=== PATIENT | female | born 1960 | race Caucasian/White ===

== ENCOUNTER → 2017-12-30 15:40 | Outpatient (CLI) | payer MEDICAID, SELFPAY ==
--- NOTE | 2017-12-30 | IMM_PTH ---
PATIENT: ALYSSIA HAYDEN LOC: [facility] U#:[id number] AGE/SX: 65/F ROOM: RE12/30/[address]: Dr. Sonia Sprague MD : 1960 BED: DIS: SPEC #: [id number] RECD: 01/01/18 13:58 STATUS: KEEGAN REQ #: [id number] JULIETH: 12/30/17 00:[address]: Sonia Sprague DEPT: IMMUNOHISTOCHEMISTRY RECD BY: Genoveva Stanford Tissues: Right breast, NOS Procedures: CK5-6 (add) CK8 (add) E-CAD (add) HER2 AMY (add) KI-67 (add) P53 (add) NE (add) ER (initial) PHYSICIAN & INSTITUTION [place] [id number] SPECIMEN INFORMATION: Tissue Source: Right breast, biopsy Clinical Info: Abnormal mammogram Specimen Number: [id number] CPT code: 25735, 27867 x4, 49977 x3 METHODOLOGY: Deparaffinized sections of prefer/formalin-fixed tissue or PAP/DQ stained slides are incubated with monoclonal/polyclonal antibodies/oligonucleotide probes. Localization is made via biotin free immunoperoxidase method. Appropriate controls are performed and reacted as expected. Results on target cell population are indicated in the following table: RESULTS: ANTIBODY / CLONE RESULT E-Cad (ECH-6) positive CK8 (75ivrzQ65) positive CK5-6 (D5 & 1684) negative Ki-67 (30-9) positive, low P53 (DO-7) positive, a few cells MORPHOMETRIC ANALYSIS ER (clone 6F11) >95%, moderate NE (clone 16/1E2) variable 0 to 20%, weak Her-2Neu (clone CB11) 0 The prognostic test for HER2 is performed on formalin-fixed paraffin embedded tissue. A 3+ (positive) staining pattern is defined as intense, homogeneous, complete, circumferential membranous staining in >10% of contiguous tumor cells. A similar weak (2+) staining pattern is interpreted as equivocal. MIKE follow-up testing is recommended for all equivocal cases. Positivity/negativity for ER/NE is reported if > or < 1% of the tumor cells are immuno- reactive, respectively. The ASCO/CAP criteria is used for scoring. Reference: Journal of Clinical Oncology, 2013; 31:8582-3642 & 2010; 16:2953-9506. Duration of fixation: __ Hrs; Sample Adequate: Yes. These assays have not been validated on decalcified tissues. Results should be interpreted with caution given the likelihood of false negativity on decalcified specimens. These tests were developed and their performance characteristics determined by [facility]. They may not have been cleared or approved by the U.S. Food and Drug Administration. The FDA has determined that such clearance or approval is not necessary. INTERPRETATION: Right breast, ultrasound-guided mammotome biopsy: Invasive ductal carcinoma, nuclear grade 2. Positive for estrogen receptors (favorable prognostic indicator). Positive for progesterone receptors (favorable prognostic indicator). Negative for overexpression of [id number]. SJ:raul 01/02/18
--- NOTE | 2017-12-30 | BRBX_PTH ---
PATIENT: ALYSSIA HAYDEN LOC: [facility] U#:[id number] AGE/SX: 65/F ROOM: RE12/30/[address]: Dr. Sonia Sprague MD : 1960 BED: DIS: SPEC #: [id number] RECD: 12/30/17 15:13 STATUS: KEEGAN ERVIN #: [id number] JULIETH: 12/30/17 00:[address]: Sonia Sprague DEPT: SURGICAL PATHOLOGY RECD BY: Harpreet Arellano Tissues: Right breast, NOS Procedures: Surgery Specimen Level IV HEADER OPERATION: Ultrasound-guided mammotome right breast biopsy PRE-OP DIAGNOSIS: Abnormal mammogram TISSUE SUBMITTED: Right breast biopsy ISCHEMIC TIME: 1 minute MICROSCOPIC DIAGNOSIS Right breast, ultrasound-guided mammotome core biopsy: Invasive ductal carcinoma, nuclear 2 (1 cm in greatest length). See comment. BEATRIZ:raul 01/01/18 COMMENT Immunohistochemistry ([id number]) supports the above diagnosis. ER/NM/Upr2wyo studies are being performed on sections of tumor and the results from this study will be reported separately ([id number]). MICROSCOPIC DESCRIPTION Slides are reviewed. GROSS DESCRIPTION Received is one container labeled with the patient's name and not further designated. The specimen consists of multiple elongated fragments of mendoza soft tissue that in aggregate measure 2 x 1 x 0.1 cm. The entire specimen is submitted in one cassette. / SJ:rg 12/31/17 TC:0 CPT: 10760
== END ==
PROVIDERS: Visit Provider Surgery
DX: C50.911 Malignant neoplasm of unspecified site of right female breast (principal)
CPT/HCPCS: 88305; 88341; 88342

== ENCOUNTER 2018-02-14 14:23 | Observation (INO) | payer MEDICAID, SELFPAY ==
[2018-02-12 13:17] LABS: Hematocrit 40.1 % (37-47); Mean Corp Hgb Conc 34.9 g/gl (32-36); Mean Corpuscular Hgb 29.5 pg (27.0-32.0); Mean Corpuscular Volume 84.6 fL (81-99); Mean Platelet Vol. 10.2 fl (6.2-12.0); Platelet Count 212 K/mm3 (150-450); RBC Distribution Width CV 13.3 % (11.6-14.6); RBC Distribution Width SD 40.6 fl (35.1-43.9); Red Blood Count 4.74 M/mm3 (4.2-5.4); White Blood Count 10.8 K/mm3 (4.4-11.0)
[2018-02-12 13:24] LABS: Hemoglobin A1c 9.8 % (4.2-6.3)
[2018-02-12 13:27] LABS: Scan Indicated on CBC? Y/N NO
[2018-02-12 13:38] LABS: Anion Gap 12 (5-15); BUN 22 mg/dL (7-18); BUN/Creat Ratio 27.8 RATIO (10-20); Calcium,Total 9.2 mg/dL (8.5-10.1); Chloride 104 mmol/L (98-107); Creatinine, Serum 0.79 mg/dL (0.55-1.02); EST Glomerular Filtration Rate 80 mL/min (>60); Est Glom Filt Rate - Afr Amer 97 mL/min (>60); Glucose 127 mg/dL (74-106); Potassium 4.2 mmol/L (3.5-5.1); Sodium Level 141 mmol/L (136-145)
[2018-02-14] VITALS (9 sets, daily range): BP systolic 94–131; BP diastolic 49–71; PULSE 63–82; RESP 16–18; TEMP 36–36.8; O2SAT 1–100; BMI 37.7
--- NOTE | 2018-02-14 | AXNB_PTH ---
PATIENT: ALYSSIA HAYDEN LOC: [facility] U#:[id number] AGE/SX: 57/F ROOM: [facility] [place] RE02/14/[address]: Dr. Sonia Sprague MD : 1960 BED: 1 DIS: 02/15/2018 SPEC #: [id number] RECD: 02/14/18 13:39 STATUS: KEEGAN REQ #: [id number] JULIETH: 02/14/18 00:[address]: Sonia Sprague DEPT: SURGICAL PATHOLOGY RECD BY: Maryse Mari ENTERED: 02/17/18 09:07 SP TYPE: AX NODE BX OTHR DR: Dr. Herminio Ritchie MD Tissues: A - Axillary lymph node, NOS B - Right breast, NOS C - Left breast, NOS Procedures: Surgery Specimen Level V Surgery Specimen Level HEADER OPERATION: Mastectomy, modified, radical PRE-OP DIAGNOSIS: Newly diagnosed right breast cancer TISSUE SUBMITTED: A ? Right axillary contents to identify clip, then to pathology for permanent at 1237, B ? Right breast, suture at tail of Durand, C ? Left breast MICROSCOPIC DIAGNOSIS A. Right axillary contents: Five out of seven lymph nodes positive for metastatic carcinoma. See comment. B. Right breast, modified radical mastectomy: Invasive ductal carcinoma. Ductal carcinoma in situ. C. Left breast, simple mastectomy: Fibrocystic changes. INVASIVE BREAST CANCER SUMMARY: (Including specimen A & B) Specimen ? total breast (including nipple and skin). Procedure ? total mastectomy (including nipple and skin). Lymph node sampling ? axillary dissection Specimen integrity ? single intact specimen Specimen laterality - right Tumor site ? central Tumor size ? 1.8 x 1.8 x 1.5 cm Tumor focality ? single focus of invasive carcinoma Macroscopic and Microscopic extent of tumor: Skin ? invasive carcinoma does not invade into the dermis or epidermis. Nipple ? ductal carcinoma in situ does not involve the nipple epidermis. Skeletal muscle ? no skeletal muscle is present. Ductal carcinoma in situ (DCIS) - present Extensive intraductal component (EIC) ? not seen. Estimated size (extent) of DCIS - Ductal carcinoma in situ comprises <1% of the total tumor volume. Number of blocks with DCIS - 1 Number of blocks examined - 11 Architectural patterns - comedo Nuclear grade ? grade 2 (intermediate) Necrosis ? present, central (expansive ?comedo? necrosis) Lobular carcinoma in situ (LCIS) ? not identified Histologic type of invasive carcinoma ? invasive ductal carcinoma (no special type) Histologic Grade ([place] grade): Glandular/tubular differentiation - score 3 Nuclear pleomorphism - score 3 Mitotic count ? score 2 Overall grade - 3 (score of 8) Margins - Margins uninvolved by invasive carcinoma and ductal carcinoma in situ. Ductal carcinoma in situ and invasive carcinoma is 6 cm away from the closest posterior margin and 1.5 cm away from the overlying skin ellipses. Treatment effect: Response to presurgical (neoadjuvant) therapy - no known presurgical therapy. Lymph-Vascular invasion ? not identified Dermal lymph-vascular invasion - not identified Lymph nodes: Number of sentinel lymph nodes examined - 0 Total number of lymph nodes examined (sentinel and nonsentinel) - 7 Number of lymph nodes with macrometastases - 5 Number of lymph nodes with micrometastases and isolated tumor cells - 0 Extranodal extension ? present, focal Distant metastasis ? not applicable Additional pathologic findings ? fibrocystic changes Ancillary studies - previously performed on section of tumor ([id number] / [id number]). ER ? positive (>95%, moderate) IL ? positive (variable 0 to 20%, weak) Her2 pretty ? negative (0) Microcalcifications ? present in non-neoplastic tissue Clinical history - Please make reference to previous specimen ([id number]) right breast, ultrasound-guided mammotome core biopsy with diagnosis of invasive ductal carcinoma. PATHOLOGIC STAGE: pT1c pN2a Mx The above summary is in compliance with [employer] (CAP) Cancer Protocols Checklist and [place] Joint Committee on Cancer (AJCC), Staging Manual, 8th Ed. SJ:rg 02/20/18 COMMENT A. The largest focus of metastatic carcinoma measures 1.2 cm in greatest dimension. Focal extranodal extension is present. The largest lymph node shows focal changes consistent with previous biopsy. No obvious clip is identified in the largest lymph node. B. No obvious lymph nodes are identified in the area identified with a suture. This case has been reviewed in consultation with Dr. Heredia who concurs with the above diagnosis. MICROSCOPIC DESCRIPTION Slides are reviewed. GROSS DESCRIPTION A - Received in fixative is one container labeled with the patient's name and designated axillary contents to identify clip. The specimen consists of a piece of yellow adipose tissue measuring 9 x 7.5 x 4 cm. A detached piece of adipose tissue with a lymph node is also present measuring 3 x 2 x 1 cm and the lymph node measures 1.5 cm in greatest dimension. Sections of large piece reveal multiple lymph nodes. The largest lymph node measures 3 cm in greatest dimension. The largest lymph node shows a focal area of hemorrhage; however, no obvious clip is identified. Some of the lymph node grossly appears to be involved by the tumor. Estimator And Drafter sections are submitted in eight cassettes as follows: 1 ? one bisected lymph node present in the detached piece of tissue, 2 ? multiple lymph node, 3 ? one bisected lymph node, 4 - one bisected lymph node, 5 - one bisected lymph node, 6 - one serially sectioned lymph node, 7 & 8 ? largest lymph node. Estimator And Drafter sections will be submitted after additional fixation. Smaller lymph nodes are submitted in entirety. / SJ:raul 02/17/18 B - Received in fixative is one container labeled with the patient's name and designated right breast, suture at tail of Durand. The specimen consists of a mastectomy specimen consisting of breast tissue with overlying skin ellipse and portion of axillary tail. The breast tissue measures 26 x 23 x 5.5 cm. The skin ellipse measures 23 x 10 cm. The nipple measures 1 cm in greatest dimension. No skin lesion is identified. The specimen is inked as follows: superior ? blue, inferior ? green, medial ? red, lateral ? orange, posterior ? black. A small axillary tail is present and measures 3 x 2.5 x 2 cm. Also present in the container is an elongated piece of mendoza-white skin measuring 20 x 0.7 cm and up to 1 cm in thickness. Also present in the container is a second additional piece of skin measuring 2 x 0.5 cm and up to 2 cm in thickness. More dictation will follow after additional fixation. / SJ:raul 02/14/18 Serial sections reveal a mendoza, indurated mass in central portion measuring 1.8 x 1.8 x 1.5 cm. This mass is 6 cm away from the posterior margin and 1.5 cm away from the overlying skin ellipse. Sections of the rest of the specimen reveal mendoza-yellow adipose cut surfaces mixed with mendoza-white fibrous area. Sections of the axially tail tissue adjacent to the suture do not reveal any obvious lymph node. Estimator And Drafter sections are submitted in 11 cassettes (#1 not used) as follows: 2 ? nipple, entirely submitted, 3 ? perpendicular superior, inferior and lateral margin, 4 ? perpendicular medial and posterior margin and skin, 5-8 ? tumor with surrounding adipose tissue, 9-12 ? sales representative [employer] service sections from the other areas. Sections will be submitted after overnight fixation. / SJ:raul 02/17/18 C - Received in fixative is one container labeled with the patient's name and designated left breast. The specimen consists of a mastectomy specimen consisting of breast tissue with overlying skin measuring 27 x 23 x 5.5 cm. The overlying skin measures 23 x 10.5 cm. The nipple measures 1 cm in greatest dimension. The specimen is inked as follows: superior ? blue, inferior ? green, medial ? red, lateral ? orange, posterior ? black. Sections reveal yellow adipose cut surfaces mixed with scant fibrous area without any mass lesion. More dictation will follow after overnight fixation. / SJ:raul 02/14/18 Estimator And Drafter sections are submitted in ten cassettes as follows: 1 ? nipple, entirely submitted, 24 ?lateral portion of breast tissue, 4-6 ? central portion of breast tissue, 7-10 - medial portion of breast tissue. Sections will be submitted after overnight fixation. / SJ:raul 02/17/18 TC:0 CPT: 76672 x2, 54131
[2018-02-14 10:16] LABS: Bedside Glucose 152 mg/dL (70-110)
[2018-02-14] MEDS: Cefazolin 2 GM in 0.9% Normal Saline 100 ML IV (11:30)
[2018-02-14] MEDS: Bupiv/Epi 0.5% Mpf 30 ML Vial ×2 (12:30)
--- NOTE | 2018-02-14 14:15 | PCM.IMDPSTOP ---
Immediate Post-Op Note Date of Procedure: 02/14/18 Primary Surgeon/Physician: Sonia Sprague mems process engineer: NOT,DEFINED Pre-Operative Diagnosis: right breast cancer Post-Operative Diagnosis: same Surgery/Procedure Performed:: right modified radical mastectomy and left simple prophylatic mastectomy (by Dr. Solares) Description of Surgical Findings:: palpable adenopathy in the right axilla, specimen mammogram of the right axilla with marker clip in place, patient with bilateral inferior to breast areas with dermatitis Estimated Blood Loss: 100 ml Specimen's removed: right breast with suture at tail of Durand, right axillary contents, left breast Drains: passive MARGARET drains x 3- mastectomy bed right and left, right axilla Type of Anesthesia:: General ASA Class: ASA3 Severe Disease - Admit VTE Documentation VTE Present on Admission: Yes VTE Mechan Device Prophylaxis: SCD's
--- NOTE | 2018-02-14 14:19 | PCM.OPRPT ---
Report of Operation Date of Procedure: 02/14/18 Pre-Operative Diagnosis: right breast cancer with known lymph node metastasis Post-Operative Diagnosis: same Surgery/Procedure Performed:: right modified radical mastectomy and left simple prophylatic mastectomy (by Dr. Solares) Description of Surgical Findings:: palpable adenopathy in the right axilla, specimen mammogram of the right axilla with marker clip in place, patient with bilateral inferior to breast areas with dermatitis pediatric acute care unit nurse: NOT,DEFINED Type of Anesthesia:: General Anesthesiologist: Delgado Cunningham Specimen's removed: right breast with suture at tail of Durand, right axillary contents, left breast Drains: passive MARGARET drains x 3- mastectomy bed right and left, right axilla Estimated Blood Loss (mL): 100 ml Fluids Replaced: 900 ml RL Description of Procedure: After informed consent was given the patient was brought to the OR, Appropriate time out protocol was followed. She was then placed in the supine position on the operating room table. She was then placed under general anesthesia. The patient's chest and neck area were then prepped with a sterile surgical skin preparation and appropriate sterile surgical drapes were placed. A skin incision was marked on the patient's right and left breast to achieve symmetry as much as possible. It was made in an oblique elliptical fashion angled to the axilla. It was made to encompass the periareolar tissues as well as to encompass the original biopsy site. The mass was centrally located, primarily in the upper inner quadrant. I performed the right modified radical mastectomy, Dr. Solares performed the left simple prophylactic mastectomy and he will dictate this operative report separately. The skin incision was made with a 10 blade scalpel and carried through to the subcutaneous tissues using electrocautery. Any hemorrhage was controlled with electrocautery. Dissection was then done to separate the breast tissue from the subcutaneous fat. This was done superiorly, to the level of the clavicle; laterally to the edge of the thoracic cage; medial to the sternal border; and inferiorly to the costal margin. The breast tissue was from the subcutaneous fatty layer using electrocautery. Any larger vessels were individually cauterized with the Bovie or with use of the Harmonic scalpel. The entire breast tissue and the pectoralis fascia were then from the pectoralis muscles starting medially and continuing laterally. The dissection included the interpectoral semaj tissue. Once dissection was achieved to the lateral aspect of the breast, then the inferior portion of the lateral tissue was transected leaving the breast tissue connected only by the superior lateral tissue (tail of Durand) of the breast. Blunt dissection was then conducted into the axillary fossa to palpate out any axillary lymph nodes. The axillary investing fascia was incised to enter the axillary fossa. Dissection continued bluntly to identify the axillary vein. Once this was noted, then dissection continued inferiorly and laterally to identify the thoracodorsal bundle. Blunt dissection was then continued within these boundaries, the tissue being retracted inferiorly and medially. Of note, there were multiple palpable enlarged lymph nodes within this tissue. Dissection was continued with the Harmonic scalpel, with tissue retracted, until the long thoracic vessels and nerves were approached. The semaj tissue was then retracted out of the axilla, anteriorly, to incorporate all palpable lymph nodes. This was from the axilla and then forwarded separately to Radiology for a specimen radiological study of the axillary contents to ensure that the marker clip of the previous lymph node was confrimed to be in the specimen. A specimen xray revealed that the marker clip was present in the specimen, the specimen was then forwarded to pathology for analysis. Hemostasis was carefully checked and any site of active bleeding was controlled with electrocautery. The long thoracic nerve and thoracodorsal nerves were identified and were intact and functioning. The breast tissue was handed off separately to be sent to pathology. A marker suture was placed at the lateral most point - tail of Durand. The entire surgical dissected field was irrigated with sterile water. Hemostasis of the area of dissection was then achieved with electrocoagulation. Henrik was applied liberally to the area. A 10 mm passive drain was placed in the axilla and another was placed along the mastectomy bed and these drains were brought out through separate skin incisions and sutured to the skin using nylon suture. The superior and inferior skin flaps were then approximated together using interrupted vicryl suture along the dermis of the skin edges. The skin incision was then reapproximated with 4-0 monocryl in a running subcuticular fashion. Cavilon and steristrips were then placed to reinforce the skin closure and proper sterile dressings were applied. Compression bandage was applied around the patient's chest. Patient was extubated and brought to Recovery Room in stable condition. - Complications none noted - Admit VTE Documentation VTE Present on Admission: Yes VTE Mechan Device Prophylaxis: SCD's
[2018-02-14 14:21] LABS: Bedside Glucose 167 mg/dL (70-110)
[2018-02-14] MEDS: Ondansetron 4 MG/2 ML Vial IV (15:47)
[2018-02-14] MEDS: 0.9% NaCl Peripheral Flush Adult/Peds IV (16:05)
[2018-02-14] MEDS: Lactated Ringers 1,000 ML 75 ML IV (17:50)
[2018-02-14] MEDS: Insulin Lispro 100 UNIT/ML INSULN.PEN SC ×2 (18:15→22:13)
[2018-02-14 18:36] LABS: Bedside Glucose 222 mg/dL (70-110)
[2018-02-14] MEDS: Cefazolin 1 GM/50 ML BAG IV (20:30)
[2018-02-14] MEDS: Atorvastatin Calcium 20 MG Tablet PO (22:13)
[2018-02-14 22:26] LABS: Bedside Glucose 216 mg/dL (70-110)
[2018-02-15] MEDS: Lactated Ringers 1,000 ML 75 ML IV (01:03)
[2018-02-15 01:38] VITALS: BP 100/46; PULSE 73; RESP 18; TEMP 37.3; O2SAT 96
[2018-02-15] MEDS: Cefazolin 1 GM/50 ML BAG IV (06:06)
[2018-02-15 07:06] LABS: Bedside Glucose 154 mg/dL (70-110)
[2018-02-15 08:19] VITALS: BP 104/50; PULSE 75; RESP 18; TEMP 36.6; O2SAT 93
[2018-02-15] MEDS: FLUoxetine 20 MG Capsule PO (08:32)
[2018-02-15] MEDS: Lisinopril 5 MG Tablet PO (08:32)
[2018-02-15] MEDS: Insulin Lispro 100 UNIT/ML INSULN.PEN 10 UNIT SC ×2 (08:32→11:09)
[2018-02-15] MEDS: Insulin Lispro 100 UNIT/ML INSULN.PEN SC ×2 (08:33→11:09)
[2018-02-15] MEDS: Ibuprofen 600 MG Tablet PO (11:08)
--- NOTE | 2018-02-15 11:09 | PCM.PN.SRG ---
Subjective: Patient feeling well, has ambulated somewhat, complaint of pain of right upper chest area, mood is good Tolerating diet - Physical Exam General: Alert, Oriented x3 Oral: Moist Mucosa Neck: Supple Lungs: Normal air movement Cardiovascular: - - chest - dressing of adequate compression - not too tight, MARGARET outputs are serosanguinous Abdomen: Soft Vital Signs Temp Pulse Resp BP Pulse Ox 97.8 F 75 18 104/50 L 93 02/15/18 08:19 02/15/18 08:19 02/15/18 08:19 02/15/18 08:19 02/15/18 08:19 Oxygen Flow Rate (L/min) 1 Oxygen Delivery Method Room Air Weight: 87.6 kg Body Mass Index (BMI) 37.7 Finger Stick Blood Glucose 167 Intake and Output for Last 24 Hours 02/13/18 02/14/18 02/15/18 23:59 23:59 23:59 Intake Total 1547 / 1547 807 / 807 Output Total 300 / 300 1435 / 1435 Balance 1247 / 1247 -628 / -628 POC Glucose 02/15/18 02/14/18 02/14/18 06:58 22:11 18:03 POC Glucose 154 H 216 H 222 H 02/14/18 14:14 POC Glucose 167 H Medical Necessity - Tobacco Use Smoking Status: Former smoker Tobacco Use: Cigarettes Assessment/Plan Impression: POD #1 s/p bilateral mastectomies with RMRM for right breast cancer Plan: discharge to home Follow up with me next week Patient to be discharged on pain meds and antibiotics
--- NOTE | 2018-02-15 11:12 | PCM.DC.BS ---
Discharge Diet: No Restrictions - maintain diabetic diet to control blood sugars drink plenty of water Discharge Activity: Return to Normal Activity, May not drive while taking narcotic pain medications. Return to work on:: 04/07/18 - or until other notice given Lifting Restrictions: no lifting greater than 10 pounds for each arm Additional Activity Instructions:: Avoid excessive activities of upper extremities above the level of the shoulders, occasional reaching is OK Call your doctor if your incision/area has: Continuous Slow Oozing, Foul Smelling Discharge Call your doctor if you observe: Fever of 101 or Higher Additional Dressing/Incision Instructions:: Leave dressing in place. Empty MARGARET bulbs as shown, empty and reconstitute bulb suction twice a day and more if needed. Sponge bathe only. Have someone else wash hair Allergies/Adverse Reactions: Allergies diphenhydramine [From Benadryl] Adverse Reaction (Verified 02/14/18 10:06) Other JITTERY morphine Adverse Reaction (Verified 02/14/18 10:06) Other LOW BLOOD PRESSURE Medications to take at Discharge Atorvastatin Calcium [Lipitor] 20 mg PO QHS 02/07/18 Cyanocobalamin (Vitamin B-12) [Vitamin B-12] 500 mcg PO DAILY 02/07/18 Dulaglutide [Trulicity] 0.75 mg SQ FR 02/07/18 Ertugliflozin Pidolate [Steglatro] 15 mg PO DAILY 02/07/18 Fluoxetine [Prozac] 20 mg PO DAILY 02/07/18 Insulin Glargine,Hum.rec.anlog [Basaglar Kwikpen U-100] 52 unit SQ QHS 02/07/18 Insulin Lispro [Admelog Solostar] 10 unit SQ TID 02/07/18 Lisinopril [Prinivil] 5 mg PO DAILY 02/07/18 RX: Biotin 1 mg PO DAILY 02/07/18 RX: Ibuprofen 200 mg PO PRN PRN 02/07/18 RX: Metformin HCl 1,000 mg PO BID 02/07/18 RX: Potassium 99 mg PO DAILY 02/07/18 Cephalexin [Keflex] 500 mg PO BID 14 Days #28 cap 02/15/18 Hydrocodone Bitart/Apap 5-325 [[place] 5MG-325MG] 1 tab PO Q6H PRN PRN 5 Days #20 tab 02/15/18 The following prescriptions were given: Hydrocodone Bitart/Apap 5-325 [[place] 5MG-325MG] 1 tab PO Q6H PRN PRN 5 Days #20 tab PRN Reason: Pain Cephalexin [Keflex] 500 mg PO BID 14 Days #28 cap Primary Care Physician: Herminio Ritchie MD [Primary Care Provider] - Please Follow Up With: Sonia Sprague MD - call When: to be seen on Saturday, Feb 19, please call for time, thank you
[2018-02-15 11:25] LABS: Bedside Glucose 234 mg/dL (70-110)
--- NOTE | 2018-02-16 11:28 | PCM.OPRPT ---
Report of Operation Date of Procedure: 02/14/18 Pre-Operative Diagnosis: right breast cancer with known lymph node metastasis Post-Operative Diagnosis: same Surgery/Procedure Performed:: left simple prophylatic mastectomy director of assessment: NOT,DEFINED Type of Anesthesia:: General Anesthesiologist: Delgado Cunningham Specimen's removed: right breast with suture at tail of Dur[place], right axillary contents, left breast Drains: passive MARGARET drains x 3- mastectomy bed right and left, right axilla Estimated Blood Loss (mL): 100 ml Fluids Replaced: 900 ml RL Description of Procedure: The patients surgical site was marked in the holding area and the patient concurred that this was the planned operative site. I performed a left simple mastectomy. While Dr. Sprague performed a right modified radical mastectomy The patient was then brought to the operative suite. Sign was performed verifying patient, site, position, SCIP antibiotic prophylaxis-2 g of Ancef and DVT prophylaxis with SCDs. Following an LMA, the patients left breast, axilla, arm and neck were then prepped and draped in the usual fashion. Timeout was performed verifying patient, site, position. The planned margin of excision for the mastectomy flaps were marked on the skin and incisions were made. Superior and inferior flaps were completed and raised. The breast tissue was taken down to the pectoralis fascia. The inferior portion of breast was then removed from the intercostal musculature and dissection carried superior laterally dividing the superficial tissues leading up to the axillary dissection . The specimen was sent whole . 1 Allen-Mata drains were placed in the medial along the skin flap and secured with 3-0 nylon suture. Skin flaps were approximated interrupted 3-0 Vicryls. Skin was closed with a 4-0 biosyn running subcuticular closure Drain dressings and incisional dressings were placed. All sponge and instrument counts were correct. The patient was extubated and brought to recovery room in stable condition.
== END 2018-02-15 12:50 | disposition home or self-care (01) ==
LOC: MS2 15:01
PROVIDERS: Surgery; Admitting Provider Surgery; Family Provider Family Medicine; PCP Family Medicine; Visit Provider Surgery
PROC: (CPT 19307; principal; 2018-02-14 10:45)
PROC: (CPT 19303; 2018-02-14 10:45)
DX: C50.211 Malignant neoplasm of upper-inner quadrant of right female breast (principal); C77.9 Secondary and unspecified malignant neoplasm of lymph node, unspecified; Z87.891 Personal history of nicotine dependence; E66.9 Obesity, unspecified; Z68.37 Body mass index [BMI] 37.0-37.9, adult; Z71.3 Dietary counseling and surveillance; F32.9 Major depressive disorder, single episode, unspecified; Z79.899 Other long term (current) drug therapy; Z79.4 Long term (current) use of insulin; E11.9 Type 2 diabetes mellitus without complications
CPT/HCPCS: 00404; 19303; 19307; 36415; 76098; 80048; 82962; 83036; 85027; 88305; 88307; 88309; 93005; 96361; 96365; 96366; 96375; 96376; 99218; J7120; A4216; G0378; G0379; J2405

== ENCOUNTER 2018-03-17 09:29 | Day surgery (SDC) | payer MEDICAID, SELFPAY ==
[2018-03-17 09:47] VITALS: BP 116/68; PULSE 78; RESP 16; TEMP 36.2; O2SAT 96; BMI 35.9
--- NOTE | 2018-03-17 10:32 | PCM.DC.POR ---
Discharge Diet: No Restrictions Discharge Activity: Return to Normal Activity, May not drive while taking narcotic pain medications. Lifting Restrictions: no lifting with left arm greater than 10 pounds Call your doctor if your incision/area has: Continuous Slow Oozing, Foul Smelling Discharge Call your doctor if you observe: Fever of 101 or Higher Additional Dressing/Incision Instructions:: Leave dressing in place. May get wet in shower. Do not scrub. Do not soak - no tub baths/swimming Allergies/Adverse Reactions: Allergies diphenhydramine [From Benadryl] Adverse Reaction (Verified 03/10/18 09:59) Other JITTERY morphine Adverse Reaction (Verified 03/10/18 09:59) Other LOW BLOOD PRESSURE Medications to take at Discharge Atorvastatin Calcium [Lipitor] 20 mg PO QHS 02/07/18 Biotin 1 mg PO DAILY 02/07/18 Cyanocobalamin (Vitamin B-12) [Vitamin B-12] 500 mcg PO DAILY 02/07/18 Dulaglutide [Trulicity] 0.75 mg SQ SA 02/07/18 Ertugliflozin Pidolate [Steglatro] 15 mg PO DAILY 02/07/18 Fluoxetine [Prozac] 20 mg PO DAILY 02/07/18 Ibuprofen 200 mg PO PRN PRN 02/07/18 Insulin Glargine,Hum.rec.anlog [Basaglar Kwikpen U-100] 52 unit SQ QHS 02/07/18 Insulin Lispro [Admelog Solostar] 10 unit SQ TID 02/07/18 Lisinopril [Prinivil] 5 mg PO DAILY 02/07/18 Metformin HCl 1,000 mg PO BID 02/07/18 Potassium 99 mg PO DAILY 02/07/18 Hydrocodone Bitart/Apap 5-325 [[place] 5MG-325MG] 1 tab PO Q6H PRN PRN 3 Days #6 tab 03/17/18 The following prescriptions were given: Hydrocodone Bitart/Apap 5-325 [[place] 5MG-325MG] 1 tab PO Q6H PRN PRN 3 Days #6 tab PRN Reason: Pain Primary Care Physician: Herminio Ritchie MD [Primary Care Provider] - Test Results: Test results from this visit will be discussed in further detail at your follow-up appointment, if applicable. Please Follow Up With: Sonia Sprague MD - call When: to be seen in 7-10 days, please call for a date and time, thank you
--- NOTE | 2018-03-17 10:35 | DCINST_ITS ---
Discharge Diet: No Restrictions Discharge Activity: Return to Normal Activity, May not drive while taking narcotic pain medications. Lifting Restrictions: no lifting with left arm greater than 10 pounds Call your doctor if your incision/area has: Continuous Slow Oozing, Foul Smelling Discharge Call your doctor if you observe: Fever of 101 or Higher Additional Dressing/Incision Instructions:: Leave dressing in place. May get wet in shower. Do not scrub. Do not soak - no tub baths/swimming Allergies/Adverse Reactions: Allergies diphenhydramine [From Benadryl] Adverse Reaction (Verified 03/10/18 09:59) Other JITTERY morphine Adverse Reaction (Verified 03/10/18 09:59) Other LOW BLOOD PRESSURE Medications to take at Discharge Atorvastatin Calcium [Lipitor] 20 mg PO QHS 02/07/18 Biotin 1 mg PO DAILY 02/07/18 Cyanocobalamin (Vitamin B-12) [Vitamin B-12] 500 mcg PO DAILY 02/07/18 Dulaglutide [Trulicity] 0.75 mg SQ SA 02/07/18 Ertugliflozin Pidolate [Steglatro] 15 mg PO DAILY 02/07/18 Fluoxetine [Prozac] 20 mg PO DAILY 02/07/18 Ibuprofen 200 mg PO PRN PRN 02/07/18 Insulin Glargine,Hum.rec.anlog [Basaglar Kwikpen U-100] 52 unit SQ QHS 02/07/18 Insulin Lispro [Admelog Solostar] 10 unit SQ TID 02/07/18 Lisinopril [Prinivil] 5 mg PO DAILY 02/07/18 Metformin HCl 1,000 mg PO BID 02/07/18 Potassium 99 mg PO DAILY 02/07/18 Hydrocodone Bitart/Apap 5-325 [[place] 5MG-325MG] 1 tab PO Q6H PRN PRN 3 Days #6 tab 03/17/18 The following prescriptions were given: Hydrocodone Bitart/Apap 5-325 [[place] 5MG-325MG] 1 tab PO Q6H PRN PRN 3 Days #6 tab PRN Reason: Pain Primary Care Physician: Herminio Ritchie MD [Primary Care Provider] - Test Results: Test results from this visit will be discussed in further detail at your follow- up appointment, if applicable. Please Follow Up With: Sonia Sprague MD - call When: to be seen in 7-10 days, please call for a date and time, thank you
--- NOTE | 2018-03-17 10:35 | PCM.IMDPSTOP ---
Immediate Post-Op Note Date of Procedure: 03/17/18 Primary Surgeon/Physician: Sonia Sprague jacquard twine polisher operator: NOT,DEFINED Pre-Operative Diagnosis: right breast cancer, need for IV access for adjuvant chemotherapy Post-Operative Diagnosis: same Surgery/Procedure Performed:: placement of permanent indwelling tunnelled catheter in left subclavian vein with subcutaneous port Description of Surgical Findings:: placement of left subclavian port - BARD PowerPort Lot [id number], exp 2019-09-08 Estimated Blood Loss: < 10 ml Specimen's removed: none Type of Anesthesia:: Local MAC ASA Class: ASA3 Severe Disease - Admit VTE Documentation VTE Present on Admission: Yes VTE Mechan Device Prophylaxis: SCD's
[2018-03-17] MEDS: Cefazolin 2 GM in 0.9% Normal Saline 100 ML IV (10:45)
[2018-03-17 10:56] LABS: Bedside Glucose 202 mg/dL (70-110)
--- NOTE | 2018-03-17 11:28 | RAD_ITS ---
STUDY: X-RAY CHEST REASON FOR EXAM: Female, 58 years old. Port placement TECHNIQUE: AP upright portable view. COMPARISON: None. FINDINGS: Left subclavian approach Cxng-C-Xewycrot tip is in the right lower atrial chamber. No pneumothorax. Mild pulmonary hypoinflation. Curvilinear subsegmental atelectasis in the left lower lobe. No suspicious pulmonary nodules or infiltrates. There is no demonstrated pleural abnormality. Normal size heart. Normal mediastinum and lorelei. Normal visualized pulmonary arteries. Normal visualized aortic arch and descending thoracic aorta. Normal visualized thoracic spine. Normal visualized ribs, clavicles, and shoulders. There is no demonstrated abnormality of the visualized soft tissue structures of the upper abdomen. RAD/CXR for Line Placement IMPRESSION: 1. No pneumothorax or acute cardiopulmonary pathology. 2. Left subclavian approach Vywh-Z-Cwdzrotk tip is in the right lower atrial chamber. 3. Curvilinear subsegmental atelectases in the left lower lobe. Electronically Signed: Jerry Helms MD at 12:34 EDT , Service support ,
[2018-03-17 11:37] VITALS: BP 108/57; BP 116/68; PULSE 87; RESP 16; TEMP 36.3; O2SAT 96
[2018-03-17 11:40] VITALS: BP 105/62; BP 116/68; PULSE 85; RESP 16; O2SAT 92
[2018-03-17 11:45] VITALS: BP 105/63; BP 116/68; PULSE 83; RESP 16; O2SAT 93
[2018-03-17 11:59] VITALS: BP 113/66; BP 116/68; PULSE 83; RESP 16; TEMP 36.4; O2SAT 93
--- NOTE | 2018-03-17 12:13 | OP.PCM_ITS ---
Report of Operation Date of Procedure: 03/17/18 Pre-Operative Diagnosis: right breast cancer, need for IV access for adjuvant chemotherapy Post-Operative Diagnosis: same Surgery/Procedure Performed:: placement of permanent indwelling tunnelled catheter in left subclavian vein with subcutaneous port Description of Surgical Findings:: placement of left subclavian port - BARD PowerPort Lot [id number], exp 2019-09-08 gis software developer: NOT,DEFINED Type of Anesthesia:: Local MAC Anesthesiologist: Dwayne Edwards Specimen's removed: none Estimated Blood Loss (mL): < 10 ml Fluids Replaced: see anesthesia note Description of Procedure: After informed consent was given, the patient was brought to the operating room. Appropriate time out protocol was followed. She was then placed in the supine position. She was then given IV conscious sedation for anesthesia. The patient?s upper chest and neck were then prepped with a surgical skin preparation and sterile surgical drapes were placed. After proper landmarks were ascertained, the skin at the upper left chest area was then infiltrated with 1% xylocaine with epinephrine. A needle trocar was then inserted into the left subclavian vein and there was good aspiration of venous blood. A wire was then threaded into the needle trocar and this was visualized under fluoroscopy to ensure that the wire was in the left subclavian vein. Once this was done, then the needle trocar was removed. A small skin loren was made with an 11 blade knife at the wire entrance site. The dilator with the introducer sheath attached was then placed over the wire into the left subclavian vein via the Seldinger technique and this was visualized under fluoroscopy. The dilator and sheath were in proper position as visualized by fluoroscopy. The wire and dilator were then removed. The catheter was then threaded into the introducer sheath and was positioned with its tip at the junction of the superior vena cava and the right atrium as visualized under fluoroscopy. The catheter was flushed with a heparin saline mixture prior to placement. A subcutaneous pocket was then created caudad to the catheter insertion site. A transverse skin incision was made after the skin and subcutaneous tissues were infiltrated with local anesthetic. Blunt dissection was then used to create a space large enough for placement of the subcutaneous port. Hemostasis was carefully controlled with electrocautery. The port was sutured to the subcutaneous fascia using vicryl suture at three sites. The catheter was then tunneled into the subcutaneous pocket. The excess catheter was transected. The catheter was then attached to the subcutaneous port using tutoring clinician?s guidelines. The port was then placed in the subcutaneous pocket and the sutures were ligated. The subdermal incisional sites were reapproximated with interrupted vicryl suture. The skin was reapproximated with monocryl suture in a subcuticular fashion. Cavilon and steristrips were used for reinforcement of the skin closure and a sterile opsite dressing was applied. Patient was brought to the Recovery Room in stable condition. Grafts/Implants Used: 8 Fr BARD PowerPort Lot [id number], exp 2019-09-08 - Complications none noted - Admit VTE Documentation VTE Present on Admission: Yes VTE Mechan Device Prophylaxis: SCD's
[2018-03-17 12:57] VITALS: BP 116/68
== END 2018-03-17 13:15 | disposition home or self-care (01) ==
LOC: SDC 09:30 → AC 09:31
PROVIDERS: Family Provider Family Medicine; PCP Family Medicine; Referring Provider Surgery; Visit Provider Surgery
PROC: (CPT 36561; principal; 2018-03-17 10:45)
DX: Z45.2 Encounter for adjustment and management of vascular access device (principal); C50.911 Malignant neoplasm of unspecified site of right female breast; E11.9 Type 2 diabetes mellitus without complications; F32.9 Major depressive disorder, single episode, unspecified; E78.00 Pure hypercholesterolemia, unspecified; Z79.899 Other long term (current) drug therapy; Z87.891 Personal history of nicotine dependence; G25.81 Restless legs syndrome; Z79.4 Long term (current) use of insulin; E66.09 Other obesity due to excess calories; Z68.37 Body mass index [BMI] 37.0-37.9, adult
CPT/HCPCS: 36561; 71045; 77001; 82962; J7120; C1788

== ENCOUNTER 2021-01-28 16:21 | Inpatient (IN) | payer MEDICARE, OTHER, SELFPAY ==
[2021-01-28] VITALS (13 sets, daily range): BP systolic 121–149; BP diastolic 54–73; PULSE 84–89; RESP 18–26; TEMP 36.7–37.2; O2SAT 22–96; BMI 35.9; BMI 35.2
--- NOTE | 2021-01-28 16:39 | EKG12_ITS ---
Test Reason : GENERAL ILLNESS Blood Pressure : / mmHG Vent. Rate : 090 BPM Atrial Rate : 090 BPM P-R Int : 154 ms QRS Dur : 084 ms QT Int : 362 ms P-R-T Axes : 048 004 018 degrees QTc Int : 442 ms Normal sinus rhythm Normal ECG Confirmed by BEKAH SEGURA, ANGEL ([id number]), acquisition editor MALIA HENAO ([id number]) on 02/01/2021 9:01:43 AM Referred By: Confirmed By:ANGEL GODFREY MD
--- NOTE | 2021-01-28 16:41 | EX.ED.DYSGE1 ---
HPI History of Present Illness Chief Complaint: Cough Informant: patient Narrative Narrative: 60-year-old female presents the emergency room with shortness of breath. 2 weeks ago she tells me that she developed cough and her tested positive for Covid. She states that she has progressively worsened to include headache posttussive emesis coughing fits and worsening shortness of breath. She notes generalized myalgias and arthralgias. She denies any recent fevers. She notes a history of diabetes. She denies any high blood pressure high cholesterol get her medication list is in the computer includes medications for those conditions. She also notes a history of breast cancer. [facility] Medical History (Updated 01/28/21 @ 18:[address] Juan Luna, DO) Breast cancer Diabetes Hypercholesterolemia Hypertension Home Medications atorvastatin 20 mg PO QHS 02/07/18 [History Last Taken Unknown] cyanocobalamin (vitamin B-12) [Vitamin B-12] 500 mcg PO DAILY 02/07/18 [History Last Taken Unknown] fluoxetine 40 mg PO DAILY 02/07/18 [History Last Taken Unknown] ibuprofen 200 mg PO PRN PRN 02/07/18 [History Last Taken 12/27/17] lisinopril [Prinivil] 2.5 mg PO DAILY 02/07/18 [History Last Taken 03/17/18 08:00] metformin 1,000 mg PO BID 02/07/18 [History Last Taken Unknown] anastrozole 1 mg PO DAILY 01/28/21 [History Last Taken Unknown] bupropion HCl 150 mg PO DAILY 01/28/21 [History Last Taken Unknown] gabapentin 400 mg PO TID 01/28/21 [History Last Taken Unknown] insulin glargine [Lantus U-100 Insulin] 32 unit SUBCUT BID 01/28/21 [History Last Taken Unknown] insulin lispro [Humalog KwikPen Insulin] 24 unit SUBCUT TID 01/28/21 [History Last Taken Unknown] trazodone 50 mg PO QHS 01/28/21 [History Last Taken Unknown] Allergy/AdvReac Type Severity Reaction Status Date / Time diphenhydramine AdvReac Other Verified 01/28/21 16:23 [From Benadryl] morphine AdvReac Other Verified 01/28/21 16:23 Surgical History H/O mastectomy H/O: hysterectomy Social History (Updated 01/28/21 @ 16:[address] Juan Luna DO) Smoking Status: Never smoker substance use type: does not use ROS ROS ED Constitutional Constitutional ED: Reports chills; Denies weight loss Eyes Eyes: Denies change in vision or diplopia ENT ENT ED: Denies ear pain, rhinorrhea or sore throat Cardiovascular Cardiovascular: Denies chest pain, orthopnea, palpitations or racing heartbeat Respiratory/Chest Respiratory/Chest: Reports cough, dyspnea and dyspnea on exertion; Denies orthopnea Gastrointestinal Gastrointestinal: Reports other Details: Posttussive emesis ; Denies abdominal pain, diarrhea, nausea or vomiting Genitourinary Genitourinary ED: Denies dysuria, hematuria or urinary frequency Musculoskeletal Musculoskeletal: Reports arthralgias and myalgias Integumentary Denies abscess or rash Neurologic Neurologic: Reports headache(s); Denies weakness Psychiatric Psychiatric: Denies anxiety, depression, suicidal ideation or suicidal thoughts Endocrine Endocrinology: Denies polydipsia, polyphagia or polyuria Allergic/Immunologic Allergic/Immunologic ED: Denies mouth swelling, tongue swelling or urticaria EXAM Physical Exam Const Vital Signs: 01/28/21 16:23 01/28/21 16:55 01/28/21 17:29 Temperature 98.4 F Temperature Source Temporal Pulse Rate 86 89 Respiratory Rate 18 26 H Respiratory Effort Normal Respiratory Depth Normal Respiratory Pattern Tachypnea Blood Pressure 141/54 H 143/73 H Blood Pressure Mean 83 96 Pulse Ox 90 95 Oxygen Delivery Method Room Air Nasal Cannula Room Air Oxygen Flow Rate (L/min) 01/28/21 18:37 Temperature Temperature Source Pulse Rate 85 Respiratory Rate 23 H Respiratory Effort Respiratory Depth Respiratory Pattern Blood Pressure 149/73 H Blood Pressure Mean 98 Pulse Ox 23 Oxygen Delivery Method Nasal Cannula Oxygen Flow Rate (L/min) 2 Positive well nourished and well developed General Appearance ED: well developed HEENT Reports normocephalic, head/scalp atraumatic and moist mucous membranes Eyes PERRL and EOMs intact bilaterally Neck no lymphadenopathy, supple and no JVD Resp normal respiratory effort and clear to auscultation bilaterally Cardio regular rate, regular rhythm and no murmurs GI normal to inspection, nondistended, normoactive bowel sounds and non-tender Palpation: soft Back/Spine no CVA tenderness and normal ROM Extremity normal to inspection General Extremety ED: Negative for edema General Extremity: Negative for edema Neuro oriented x3 and CN's II-XII intact bilaterally Sensorium / Orientation: alert Motor Exam: strength 5/5 throughout Psych mental status grossly normal Mood & Affect: Negative for depressed or tearful Skin no rashes or lesions noted and no wounds MDM MDM MDM Narrative Medical decision making narrative: White count 4.7. Lactic acid 1.4. CMP showed glucose 292 slight elevation of her liver enzymes. My interpretation of the chest x-ray is multifocal areas of infiltrates. CTA of the chest was obtained which does not demonstrate any pulmonary embolism. It is consistent with COVID-19 diagnosis. Her Covid is positive. On 2 L the patient is satting 86% drops down into the low 80s with ambulation to bedside commode. 4 L is currently keeping her at about 93%. She received dexamethasone. Plan will be admission. Lab Data Attestation: I reviewed the patient's lab results. Labs: Laboratory Results - last 24 hr 01/28/21 01/28/21 01/28/21 16:55 16:55 16:55 WBC 4.7 RBC 4.21 Hgb 11.8 L Hct 36.1 L MCV 85.7 MCH 28.0 MCHC 32.7 RDW Std Deviation 41.4 RDW Coeff of Jay 13.3 Plt Count 126 L MPV 10.1 Immature Gran % (Auto) 0.600 Neut % (Auto) 68.5 Lymph % (Auto) 21.8 [place] % (Auto) 8.5 Eos % (Auto) 0.4 Baso % (Auto) 0.2 Absolute Neuts (auto) 3.2 Absolute Lymphs (auto) 1.02 Nucleated RBC % 0 Sodium 135 L Potassium 4.0 Chloride 101 Carbon Dioxide 25.0 Anion Gap 9 BUN 14 Creatinine 0.57 Estim Creat Clear Calc 80.19 Est GFR (MDRD) Af Amer 140 Est GFR (MDRD) Non-Af 116 BUN/Creatinine Ratio 24.7 H Glucose 292 H Lactic Acid 1.4 Calcium 8.3 L Total Bilirubin 0.80 AST 69 H ALT 76 H Alkaline Phosphatase 124 H Troponin I High Sens 7 Total Protein 7.4 Albumin 2.7 L Globulin 4.7 H Albumin/Globulin Ratio 0.6 L Radiography Diagnostic Testing: Radiology Impression Chest X-Ray 01/28/21 17:34 IMPRESSION: Bilateral pneumonia. Electronically Signed: Juventino Geiger MD at 17:57 EDT Tel , Service support , EKG Initial EKG: Attestation: I personally reviewed and interpreted this EKG as follows: Comments: Normal sinus rhythm with 90 bpm. Discharge Plan Dx/Rx/DC Orders Clinical Impression: COVID-19, Acute hypoxemic respiratory failure Disposition Disposition: Acute Care Hospital [facility]
[2021-01-28 17:18] LABS: Absolute Lymphocyte Count 1.02 X10^3/uL (0.83-4.51); Absolute Neutrophil Count 3.2 X10^3/uL (2.0-7.7); Basophil# 0.01 X10^3/uL; Basophil% 0.2 % (0-1); Eosinophil# 0.02 X10^3/uL; Eosinophils% 0.4 % (0-5); Hematocrit 36.1 % (37-47); Hemoglobin 11.8 g/dL (12.0-15.0); Lymphocyte # 1.02 X10^3/ul (0.83-4.51); Lymphocyte % 21.8 % (19-41); Mean Corp Hgb Conc 32.7 g/dL (32-36); Mean Corpuscular Volume 85.7 fL (81-99); Mean Platelet Vol. 10.1 fl (6.2-12.0); Monocyte% 8.5 % (0-10); NRBC Flagged by Analyzer 0 % (0-5); Neutrophil % 68.5 % (47-70); Platelet Count 126 K/mm3 (150-450); RBC Distribution Width CV 13.3 % (11.6-14.6); RBC Distribution Width SD 41.4 fl (35.1-43.9); Red Blood Count 4.21 M/mm3 (4.2-5.4); White Blood Count 4.7 K/mm3 (4.4-11.0)
--- NOTE | 2021-01-28 17:34 | RAD_ITS ---
STUDY: X-RAY CHEST REASON FOR EXAM: Female, 60 years old. cough TECHNIQUE: Single AP portable view of the chest. COMPARISON: 03/17/2018 FINDINGS: Alveolar opacities in both lungs consistent with bilateral pneumonia. There is no demonstrated pleural abnormality. There is moderate cardiac enlargement. Normal mediastinum and lorelei. Normal visualized pulmonary arteries. Normal visualized aortic arch and descending thoracic aorta. Normal visualized thoracic spine. Normal visualized ribs, clavicles, and shoulders. There is no demonstrated abnormality of the visualized soft tissue structures of the upper abdomen. RAD/Chest 1 View (Portable) IMPRESSION: Bilateral pneumonia. Electronically Signed: Juventino Geiger MD at 17:57 EDT Tel , Service support ,
[2021-01-28 17:40] LABS: ALB/GLOB Ratio 0.6 RATIO (0.9-2.4); AST(SGOT) 69 U/L (15-37); Alanine Aminotransfer ALT/SGPT 76 U/L (13-56); Albumin, Serum 2.7 g/dL (3.2-5.0); Alkaline Phosphatase 124 U/L (45-117); Anion Gap 9 (5-15); BUN 14 mg/dL (7-18); BUN/Creat Ratio 24.7 RATIO (10-20); Calcium,Total 8.3 mg/dL (8.5-10.1); Chloride 101 mmol/L (98-107); Creatinine, Serum 0.57 mg/dL (0.55-1.02); EST Glomerular Filtration Rate 116 mL/min (>60); Est Glom Filt Rate - Afr Amer 140 mL/min (>60); Estimated Creatinine Clearance 80.19 ml/min; Globulin 4.7 g/dL (2.2-4.2); Glucose 292 mg/dL (74-106); Protein, Total 7.4 g/dL (6.4-8.2); Sodium Level 135 mmol/L (136-145); Troponin-I HS 7 pg/mL (3.0-54.0)
[2021-01-28 17:57] LABS: Lactic Acid 1.4 mmol/L (0.4-1.9)
--- NOTE | 2021-01-28 18:01 | CT_ITS ---
STUDY: CTA CHEST REASON FOR EXAM: Female, 60 years old. pulmonary embolism RADIATION DOSAGE (If Supplied By Facility): CTDIvol = ( 13.28 ) mGy, DLP = ( 463.29 ) mGycm TECHNIQUE: The examination was performed with the intravenous administration of IV 100mL [id number]-370. Post-processing of the angiographic images was performed, with multiplanar reformation and 3D reconstruction. Individualized dose optimization techniques were used for this CT. COMPARISON: Chest x-ray earlier today FINDINGS: Normal enhancement of the main pulmonary artery and right and left pulmonary arteries. Normal enhancement of the bilateral peripheral pulmonary arteries. There is no demonstrated pulmonary embolism. Normal thoracic aorta and visualized great vessels. There is no demonstrated aortic dissection. Normal heart and pericardium. Normal mediastinum. Normal hilar regions. Normal visualized trachea and bronchi. The lungs are well expanded. Bilateral patchy groundglass opacities consistent with subsegmental atelectasis or pneumonitis. Normal pleura. Normal chest wall structures. Normal osseous structures. Normal visualized upper abdomen. CT/CTA Chest W/WO Contrast IMPRESSION: 1. No CT evidence of pulmonary embolism. 2. Bilateral subsegmental atelectasis or pneumonitis. Commonly reported imaging features of Covid 19 pneumonia are present. However, other processes such as influenza pneumonia and organizing pneumonia from drug toxicity and connective tissue disease can cause a similar imaging pattern Electronically Signed: Juventino Geiger MD at 18:56 EDT Tel , Service support ,
[2021-01-28] MEDS: dexAMETHasone 4 MG Tablet 6 MG PO (18:40)
--- NOTE | 2021-01-28 19:34 | PCM.HP.STD ---
HPI - General General Date of Admission: 01/28/21 HPI Narrative ALYSSIA HAYDEN, is a 60 F with a significant history of breast cancer status post bilateral mastectomy and chemoradiation; hypertension; and diabetes mellitus who presents with progressively worsening cough. Associated for symptoms is wheezes; muscle aches; fatigue; and productive cough of white loose sputum. Also she has poor appetite. Her symptoms started about 2 weeks ago. Her tested positive for Covid. [facility] Medical History Breast cancer Diabetes Hypercholesterolemia Hypertension Home Medications atorvastatin 20 mg PO QHS 02/07/18 [History Last Taken Unknown] cyanocobalamin (vitamin B-12) [Vitamin B-12] 500 mcg PO DAILY 02/07/18 [History Last Taken Unknown] fluoxetine 40 mg PO DAILY 02/07/18 [History Last Taken Unknown] ibuprofen 200 mg PO PRN PRN 02/07/18 [History Last Taken 12/27/17] lisinopril [Prinivil] 2.5 mg PO DAILY 02/07/18 [History Last Taken 03/17/18 08:00] metformin 1,000 mg PO BID 02/07/18 [History Last Taken Unknown] anastrozole 1 mg PO DAILY 01/28/21 [History Last Taken Unknown] bupropion HCl 150 mg PO DAILY 01/28/21 [History Last Taken Unknown] gabapentin 400 mg PO TID 01/28/21 [History Last Taken Unknown] insulin glargine [Lantus U-100 Insulin] 32 unit SUBCUT BID 01/28/21 [History Last Taken Unknown] insulin lispro [Humalog KwikPen Insulin] 24 unit SUBCUT TID 01/28/21 [History Last Taken Unknown] trazodone 50 mg PO QHS 01/28/21 [History Last Taken Unknown] Allergy/AdvReac Type Severity Reaction Status Date / Time diphenhydramine AdvReac Other Verified 01/28/21 16:23 [From Benadryl] morphine AdvReac Other Verified 01/28/21 16:23 Family History (Updated 01/28/21 @ 19:[address] Vamshi Tomas MD) Other Cancer Diabetes Thyroid disorder Surgical History H/O mastectomy H/O: hysterectomy Social History Smoking Status: Never smoker substance use type: does not use ROS ROS Narrative Constitutional: Reports anorexia; and fatigue. Denies fever or chills. Denies change in weight Eyes: Denies blurry vision, change in eye color, change in vision, discharge from eye(s), double vision, erythema, eye pain, loss of vision or other HEENT: Denies abnormal hearing, dysphagia, ear pain, epistaxis, headache(s), hearing loss, nasal congestion, nasal discharge, post nasal drip, sinus pressure, sore throat or other Cardiovascular: Reports chest pain. Denies orthopnea embolism nocturnal dyspnea Respiratory/Chest: Reports cough. Reports phlegm production. Denies shortness of breath. Reports occasional wheezing Gastrointestinal: Denies abdominal pain, coffee ground emesis, constipation, diarrhea, dyspepsia, hematemesis, hematochezia, loose stools, melena, nausea, vomiting or other Genitourinary: Denies burning urination, difficulty urinating, dysuria, hematuria, nocturia, urinary frequency, urinary hesitancy, urinary incontinence, urinary urgency or other Musculoskeletal: Reports myalgia. Denies arthralgias, back pain, joint pain, joint stiffness, joint swelling, neck pain or other Neurologic: Denies abnormal gait, abnormal speech, confusion, disequilibrium, dizziness, focal weakness, headache(s), numbness, paresthesias, seizure-like activity, seizures, syncope, tingling, tremor(s) or other Psychiatric: Denies anxiety, depression, homicidal ideation, suicidal ideation or other Endocrinology: Denies change in body appearance, cold intolerance, excessive sweating, heat intolerance, polydipsia, polyuria or other Hematologic/Lymphatic: Denies anemia, easy bleeding, easy bruising, lymphadenopathy or other Integumentary: Denies rashes. Allergic/Immunologic: Denies rhinitis, hives, eczema, asthma or other Vital Signs Vital Signs Vital Signs: 01/28/21 16:23 01/28/21 16:55 01/28/21 17:29 Temperature 98.4 F Temperature Source Temporal Pulse Rate 86 89 Respiratory Rate 18 26 H Respiratory Effort Normal Respiratory Depth Normal Respiratory Pattern Tachypnea Blood Pressure 141/54 H 143/73 H Blood Pressure Mean 83 96 Pulse Ox 90 95 Oxygen Delivery Method Room Air Nasal Cannula Room Air Oxygen Flow Rate (L/min) 01/28/21 18:37 01/28/21 19:16 Temperature 98.9 F Temperature Source Oral Pulse Rate 85 85 Respiratory Rate 23 H 22 H Respiratory Effort Respiratory Depth Respiratory Pattern Blood Pressure 149/73 H 143/72 H Blood Pressure Mean 98 95 Pulse Ox 93 94 Oxygen Delivery Method Nasal Cannula Nasal Cannula Oxygen Flow Rate (L/min) 2 2 Weight Weight: 86.183 kg Body Mass Index (BMI) 35.9 Physical Exam Narrative Physical exam: General: Well-nourished, well-developed, no acute distress Head: Normocephalic, atraumatic, no tenderness Eyes: PERRLA, EOMI ENT, no trauma, moist mucous membranes, no rhinorrhea Neck: Nontender, full range of motion, no spinal tenderness, deformities, step-off CVS: Regular rate and rhythm Respiratory. Rhonchi. Chest wall nontender. Abdomen: Soft, nontender, nondistended, normal bowel sounds, no masses : Deferred Back: Nontender, no CVA tenderness, no midline spinal tenderness, deformities, step-offs Extremities: Nontender full range of motion, no trauma Skin: Normal color, no trauma, abrasions Neuro: Alert, oriented, cranial nerves II through XII grossly intact. Psychiatry: Normal mood. Normal affect. Not depressed. Not anxious. Results Lab / Micro Data Result Diagrams: 01/28/21 16:55 01/28/21 16:55 Labs: Laboratory Results - last 24 hr 01/28/21 16:55: WBC 4.7, RBC 4.21, Hgb 11.8 L, Hct 36.1 L, MCV 85.7, MCH 28.0, MCHC 32.7, RDW Std Deviation 41.4, RDW Coeff of Jay 13.3, Plt Count 126 L, MPV 10.1, Immature Gran % (Auto) 0.600, Neut % (Auto) 68.5, Lymph % (Auto) 21.8, [place] % (Auto) 8.5, Eos % (Auto) 0.4, Baso % (Auto) 0.2, Absolute Neuts (auto) 3.2, Absolute Lymphs (auto) 1.02, Nucleated RBC % 0 01/28/21 16:55: Sodium 135 L, Potassium 4.0, Chloride 101, Carbon Dioxide 25.0, Anion Gap 9, BUN 14, Creatinine 0.57, Estim Creat Clear Calc 80.19, Est GFR (MDRD) Af Amer 140, Est GFR (MDRD) Non-Af 116, BUN/Creatinine Ratio 24.7 H, Glucose 292 H, Calcium 8.3 L, Total Bilirubin 0.80, AST 69 H, ALT 76 H, Alkaline Phosphatase 124 H, Troponin I High Sens 7, Total Protein 7.4, Albumin 2.7 L, Globulin 4.7 H, Albumin/Globulin Ratio 0.6 L 01/28/21 16:55: Lactic Acid 1.4 Micro: Microbiology 01/28/21 17:00 Mucosa - Nose SARS-CoV-2 Antigen (Rapid) - Final SARS-CoV-2 (COVID 19) Radiology Impression Chest X-Ray 01/28/21 17:34 IMPRESSION: Bilateral pneumonia. Electronically Signed: Juventino Geiger MD at 17:57 EDT Tel , Service support , Chest CTA 01/28/21 18:01 IMPRESSION: 1. No CT evidence of pulmonary embolism. 2. Bilateral subsegmental atelectasis or pneumonitis. Commonly reported imaging features of Covid 19 pneumonia are present. However, other processes such as influenza pneumonia and organizing pneumonia from drug toxicity and connective tissue disease can cause a similar imaging pattern Electronically Signed: Juventino Geiger MD at 18:56 EDT Tel , Service support , Assessment & Plan Assessment/Plan (1) Acute respiratory insufficiency: (2) COVID-19: PLAN: Acute hypoxemic respiratory insufficiency secondary to SARS- COV 2 Patient required about 4 L of nasal cannula oxygen at emergency department to maintain appropriate oxygen saturation. Continue supplemental oxygen to maintain oxygen saturation to at least 92%. SARS Covid antigen test was positive at the ED. Impression of chest x-ray by radiologist: Bilateral pneumonia. Actual chest x-ray image was independently interpreted. I agree radiologist interpretation. Impression of follow-up chest CTA by radiologist: Bilateral patchy groundglass opacity consistent with subsegmental atelectasis or pneumonitis. Lactic acid is normal. Check procalcitonin. Received Decadron 6 mg p.o. at emergency department and continued. Outside window of remdesivir. Of notes liver biochemistry is elevated. Trend CMP and CBC. Mucinex for cough ordered. Tylenol as needed ordered. Diabetes mellitus Patient with hyperglycemia on presentation Basal and prandial continued. Hold Metformin Accu-Chek QA [facility] with correction scale insulin ordered. Hypertension Blood pressure is not within goal Lisinopril continue continued. As needed hydralazine ordered. Trend blood pressure and adjust blood pressure medications. History of breast cancer: Anastrozole continued. DVT prophylaxis: Subcutaneous Lovenox per Covid protocol Charges/Coding Visit Charges Inpatient E&M: 55341 Init Hosp L3
[2021-01-28] MEDS: guaiFENesin 1,200 MG Tablet 1200 MG PO (21:08)
[2021-01-28] MEDS: Enoxaparin 30 MG/0.3 ML Syringe SC (21:08)
[2021-01-28] MEDS: Atorvastatin Calcium 20 MG Tablet PO (21:09)
[2021-01-28 22:01] LABS: Procalcitonin 0.13 ng/mL (0.00-0.09)
[2021-01-28] MEDS: traZODone 50 MG Tablet PO (22:34)
[2021-01-28] MEDS: Gabapentin 400 MG Capsule PO (22:34)
[2021-01-28] MEDS: Glucerna Shake 120 ML LIQUID PO (22:43)
[2021-01-28] MEDS: Insulin Lispro 100 UNIT/ML INSULN.PEN SC (22:45)
[2021-01-28] MEDS: Acetaminophen 325 MG Tablet 650 MG PO (22:46)
[2021-01-28 23:15] LABS: Bedside Glucose 329 mg/dL (70-110)
[2021-01-29] VITALS (24 sets, daily range): BP systolic 94–112; BP diastolic 26–61; PULSE 64–80; RESP 18–22; TEMP 36.6–37.1; O2SAT 90–97
[2021-01-29] MEDS: 0.9% Saline Lock 10 ML Syringe IV (01:11)
[2021-01-29 06:53] LABS: Absolute Lymphocyte Count 0.83 X10^3/uL (0.83-4.51); Basophil# 0.01 X10^3/uL; Basophil% 0.2 % (0-1); Hematocrit 34.3 % (37-47); Hemoglobin 11.4 g/dL (12.0-15.0); Lymphocyte # 0.83 X10^3/ul (0.83-4.51); Lymphocyte % 20.6 % (19-41); Mean Corp Hgb Conc 33.2 g/dL (32-36); Mean Corpuscular Hgb 28.2 pg (27.0-32.0); Mean Corpuscular Volume 84.9 fL (81-99); Mean Platelet Vol. 10.2 fl (6.2-12.0); Monocyte# 0.19 X10^3/uL; Monocyte% 4.7 % (0-10); NRBC Flagged by Analyzer 0 % (0-5); Neutrophil # 2.97 X10^3/uL (2.7-7.7); Neutrophil % 73.8 % (47-70); Platelet Count 129 K/mm3 (150-450); RBC Distribution Width CV 13.2 % (11.6-14.6); RBC Distribution Width SD 41.1 fl (35.1-43.9); Red Blood Count 4.04 M/mm3 (4.2-5.4)
[2021-01-29 07:11] LABS: ALB/GLOB Ratio 0.6 RATIO (0.9-2.4); AST(SGOT) 47 U/L (15-37); Alanine Aminotransfer ALT/SGPT 63 U/L (13-56); Albumin, Serum 2.6 g/dL (3.2-5.0); Alkaline Phosphatase 115 U/L (45-117); Anion Gap 9 (5-15); BUN 26 mg/dL (7-18); BUN/Creat Ratio 33.2 RATIO (10-20); Calcium,Total 8.2 mg/dL (8.5-10.1); Chloride 100 mmol/L (98-107); Creatinine, Serum 0.78 mg/dL (0.55-1.02); EST Glomerular Filtration Rate 80 mL/min (>60); Est Glom Filt Rate - Afr Amer 97 mL/min (>60); Globulin 4.6 g/dL (2.2-4.2); Glucose 468 mg/dL (74-106); Potassium 4.5 mmol/L (3.5-5.1); Protein, Total 7.2 g/dL (6.4-8.2); Sodium Level 132 mmol/L (136-145)
[2021-01-29] MEDS: Insulin Lispro 100 UNIT/ML INSULN.PEN 24 UNIT SC ×3 (07:27→17:15)
[2021-01-29] MEDS: Lisinopril 2.5 MG Tablet PO (09:13)
[2021-01-29] MEDS: Enoxaparin 30 MG/0.3 ML Syringe SC ×2 (09:13→21:29)
[2021-01-29] MEDS: buPROPion (XL) 150 MG TABLET.XL PO (09:14)
[2021-01-29] MEDS: Anastrozole 1 MG TABLET PO (09:14)
[2021-01-29] MEDS: dexAMETHasone 2 MG TABLET 6 MG PO (09:14)
[2021-01-29] MEDS: FLUoxetine 20 MG Capsule 40 MG PO (09:14)
[2021-01-29] MEDS: guaiFENesin 1,200 MG Tablet 1200 MG PO ×2 (09:15→21:30)
[2021-01-29] MEDS: Cyanocobalamin 500 MCG Tablet PO (09:15)
[2021-01-29] MEDS: Insulin Lispro 100 UNIT/ML INSULN.PEN SC ×4 (09:15→21:30)
[2021-01-29] MEDS: Gabapentin 400 MG Capsule PO ×3 (09:15→21:30)
[2021-01-29] MEDS: Nystatin Powder 15gm Bottle 1 APPLIC TOPICAL ×2 (09:18→21:33)
[2021-01-29 11:06] LABS: Bedside Glucose 476 mg/dL (70-110)
--- NOTE | 2021-01-29 13:02 | PN.HOSP_ITS ---
Subjective Subjective Increased oxygen requirements. Says she got sick 10 days ago and received her first vaccination Saturday, 7 days ago. When I asked that she was feeling sick when she got her vaccine, she then said it occurred at the same time. Either the date of onset was the or . Objective Data Objective Data Vital Signs: Vital Signs Temp Pulse Resp BP Pulse Ox 37.1 C 72 20 H 107/61 93 01/29/21 12:29 01/29/21 12:29 01/29/21 12:29 01/29/21 12:29 01/29/21 12:29 Oxygen Flow Rate (L/min) 5 Oxygen Delivery Method Nasal Cannula Weight: 84.686 kg Body Mass Index (BMI) 35.2 Intake & Output: Intake and Output for Last 24 Hours 01/27/21 01/28/21 01/29/21 23:59 23:59 23:59 Intake Total 120 / 120 850 / 850 Output Total 100 / 100 500 / 500 Balance 350 / 350 Lab / Micro Data Result Diagrams: 01/29/21 06:08 01/29/21 06:08 Labs: Laboratory Results - last 24 hr 01/28/21 16:05: Procalcitonin 0.13 H 01/28/21 16:55: WBC 4.7, RBC 4.21, Hgb 11.8 L, Hct 36.1 L, MCV 85.7, MCH 28.0, MCHC 32.7, RDW Std Deviation 41.4, RDW Coeff of Jay 13.3, Plt Count 126 L, MPV 10.1, Immature Gran % (Auto) 0.600, Neut % (Auto) 68.5, Lymph % (Auto) 21.8, [place] % (Auto) 8.5, Eos % (Auto) 0.4, Baso % (Auto) 0.2, Absolute Neuts (auto) 3.2, Absolute Lymphs (auto) 1.02, Nucleated RBC % 0 01/28/21 16:55: Sodium 135 L, Potassium 4.0, Chloride 101, Carbon Dioxide 25.0, Anion Gap 9, BUN 14, Creatinine 0.57, Estim Creat Clear Calc 80.19, Est GFR (MDRD) Af Amer 140, Est GFR (MDRD) Non-Af 116, BUN/Creatinine Ratio 24.7 H, Glu cose 292 H, Calcium 8.3 L, Total Bilirubin 0.80, AST 69 H, ALT 76 H, Alkaline Phosphatase 124 H, Troponin I High Sens 7, Total Protein 7.4, Albumin 2.7 L, Globulin 4.7 H, Albumin/Globulin Ratio 0.6 L 01/28/21 16:55: Lactic Acid 1.4 01/28/21 22:33: POC Glucose 329 H 01/29/21 06:08: WBC 4.0 L, RBC 4.04 L, Hgb 11.4 L, Hct 34.3 L, MCV 84.9, MCH 2 8.2, MCHC 33.2, RDW Std Deviation 41.1, RDW Coeff of Jay 13.2, Plt Count 129 L, MPV 10.2, Immature Gran % (Auto) 0.700, Neut % (Auto) 73.8 H, Lymph % (Auto) 20.6, [place] % (Auto) 4.7, Eos % (Auto) 0.0, Baso % (Auto) 0.2, Absolute Neuts (auto) 3.0, Absolute Lymphs (auto) 0.83, Nucleated RBC % 0 01/29/21 06:08: Sodium 132 L, Potassium 4.5, Chloride 100, Carbon Dioxide 23.0, Anion Gap 9, BUN 26 H, Creatinine 0.78, Estim Creat Clear Calc 58.60, Est GFR (MDRD) Af Amer 97, Est GFR (MDRD) Non-Af 80, BUN/Creatinine Ratio 33.2 H, Glucose 468 H*, Calcium 8.2 L, Total Bilirubin 0.60, AST 47 H, ALT 63 H, Alkaline Phosphatase 115, Total Protein 7.2, Albumin 2.6 L, Globulin 4.6 H, Albumin/Globulin Ratio 0.6 L 01/29/21 10:59: POC Glucose 476 H* Micro: Microbiology 01/28/21 17:00 Mucosa - Nose SARS-CoV-2 Antigen (Rapid) - Final SARS-CoV-2 (COVID 19) Radiography Diagnostic Testing: Radiology Impression Chest X-Ray 01/28/21 17:34 IMPRESSION: Bilateral pneumonia. Electronically Signed: Juventino Geiger MD at 17:57 EDT Tel , Service support , Chest CTA 01/28/21 18:01 IMPRESSION: 1. No CT evidence of pulmonary embolism. 2. Bilateral subsegmental atelectasis or pneumonitis. Commonly reported imaging features of Covid 19 pneumonia are present. However, other processes such as influenza pneumonia and organizing pneumonia from drug toxicity and connective tissue disease can cause a similar imaging pattern Electronically Signed: Juventino Geiger MD at 18:56 EDT Tel , Service support , Physical Exam Const alert Resp normal respiratory effort, no retractions, no use of accessory muscles and clear to auscultation bilaterally Cardio regular rate, regular rhythm, S1 normal heart sound and S2 normal heart sound GI normal to inspection, nondistended, normoactive bowel sounds, soft to palpation, non-tender and non-distended Assessment & Plan Assessment/Plan (1) COVID-19: (2) Acute and chronic respiratory failure with hypoxia: PLAN: 1. acute COVID 19 pneumonia Date of onset either the or . However, told the ED physician it began 2 weeks ago. Therefore, she is out of the window to receive remdesivir. Continue dexamethasone Pt states that she received 1st dose of Moderna vaccine on the . She will be due to receive next around 02/23. 2. Acute hypoxic respiratory failure 2/2 above increased oxygen requirements today wean oxygen as able ambulatory pulse ox prior to discharge 3. DM2, uncontrolled exacerbated by illness and dexamethasone increase glargine from 32 to 40 BID hold metformin for IV contrast through the . 4. VTE prophylaxis: enoxaparin Charges/Coding Visit Charges Inpatient E&M: 51736 Subs Hosp L2
[2021-01-29 13:17] LABS: Glucose 474 mg/dL (74-106)
[2021-01-29] MEDS: Glucerna Shake 120 ML LIQUID PO ×2 (14:03→22:24)
[2021-01-29 17:01] LABS: Bedside Glucose 484 mg/dL (70-110)
[2021-01-29] MEDS: Acetaminophen 325 MG Tablet 650 MG PO (17:15)
--- NOTE | 2021-01-29 20:59 | NURSING ---
Covid 19 emergency documentation initiated 01/29/21 1900.
[2021-01-29] MEDS: Atorvastatin Calcium 20 MG Tablet PO (21:30)
[2021-01-29] MEDS: traZODone 50 MG Tablet PO (21:30)
[2021-01-30] VITALS (41 sets, daily range): BP systolic 101–136; BP diastolic 53–70; PULSE 62–93; RESP 13–28; TEMP 36.6–36.7; O2SAT 87–98
[2021-01-30 00:16] LABS: Bedside Glucose 430 mg/dL (70-110)
[2021-01-30 06:44] LABS: Absolute Lymphocyte Count 0.75 X10^3/uL (0.83-4.51); Absolute Neutrophil Count 7.9 X10^3/uL (2.0-7.7); Basophil# 0.01 X10^3/uL; Basophil% 0.1 % (0-1); Hematocrit 34.1 % (37-47); Hemoglobin 11.1 g/dL (12.0-15.0); Lymphocyte # 0.75 X10^3/ul (0.83-4.51); Lymphocyte % 8.2 % (19-41); Mean Corp Hgb Conc 32.6 g/dL (32-36); Mean Corpuscular Hgb 28.2 pg (27.0-32.0); Mean Corpuscular Volume 86.5 fL (81-99); Mean Platelet Vol. 10.5 fl (6.2-12.0); Monocyte# 0.42 X10^3/uL; Monocyte% 4.6 % (0-10); NRBC Flagged by Analyzer 0 % (0-5); Platelet Count 148 K/mm3 (150-450); RBC Distribution Width CV 12.8 % (11.6-14.6); RBC Distribution Width SD 40.5 fl (35.1-43.9); Red Blood Count 3.94 M/mm3 (4.2-5.4); White Blood Count 9.2 K/mm3 (4.4-11.0)
[2021-01-30 07:26] LABS: ALB/GLOB Ratio 0.5 RATIO (0.9-2.4); AST(SGOT) 29 U/L (15-37); Alanine Aminotransfer ALT/SGPT 51 U/L (13-56); Albumin, Serum 2.5 g/dL (3.2-5.0); Alkaline Phosphatase 116 U/L (45-117); Anion Gap 6 (5-15); BUN 42 mg/dL (7-18); BUN/Creat Ratio 46.6 RATIO (10-20); Calcium,Total 8.5 mg/dL (8.5-10.1); Chloride 101 mmol/L (98-107); EST Glomerular Filtration Rate 68 mL/min (>60); Est Glom Filt Rate - Afr Amer 82 mL/min (>60); Estimated Creatinine Clearance 50.79 ml/min; Globulin 4.7 g/dL (2.2-4.2); Glucose 479 mg/dL (74-106); Potassium 4.2 mmol/L (3.5-5.1); Protein, Total 7.2 g/dL (6.4-8.2); Sodium Level 131 mmol/L (136-145)
[2021-01-30] MEDS: Enoxaparin 30 MG/0.3 ML Syringe SC ×2 (08:31→20:15)
[2021-01-30] MEDS: Lisinopril 2.5 MG Tablet PO (08:32)
[2021-01-30] MEDS: FLUoxetine 20 MG Capsule 40 MG PO (08:32)
[2021-01-30] MEDS: buPROPion (XL) 150 MG TABLET.XL PO (08:32)
[2021-01-30] MEDS: guaiFENesin 1,200 MG Tablet 1200 MG PO ×2 (08:32→20:15)
[2021-01-30] MEDS: Nystatin Powder 15gm Bottle 1 APPLIC TOPICAL ×2 (08:33→20:17)
[2021-01-30] MEDS: Cyanocobalamin 500 MCG Tablet PO (08:33)
[2021-01-30] MEDS: dexAMETHasone 2 MG TABLET 6 MG PO (08:33)
[2021-01-30] MEDS: Gabapentin 400 MG Capsule PO ×3 (08:33→20:15)
[2021-01-30] MEDS: Anastrozole 1 MG TABLET PO (08:34)
[2021-01-30] MEDS: Insulin Lispro 100 UNIT/ML INSULN.PEN 30 UNIT SC ×3 (08:35→16:45)
--- NOTE | 2021-01-30 08:35 | PN.HOSP_ITS ---
Subjective Subjective Patient is a 60-year-old lady admitted with persistent cough. She had received 1 out of 2 Covid vaccine prior to her admission. An assessment of acute hypoxic respiratory failure secondary to SARS-CoV-2 pneumonia made admitted to regular nursing floor for further management Objective Data Objective Data Vital Signs: Vital Signs Temp Pulse Resp BP Pulse Ox 97.9 F 68 22 H 110/55 L 90 01/30/21 08:23 01/30/21 08:23 01/30/21 08:23 01/30/21 08:23 01/30/21 08:23 Oxygen Flow Rate (L/min) 14 Oxygen Delivery Method Nasal Cannula Weight: 84.686 kg Body Mass Index (BMI) 35.2 Intake & Output: Intake and Output for Last 24 Hours 01/28/21 01/29/21 01/30/21 23:59 23:59 23:59 Intake Total 120 / 120 1050 / 1050 100 / 100 Output Total 100 / 100 1250 / 1250 500 / 500 Balance -200 / -200 -400 / -400 Lab / Micro Data Result Diagrams: 01/30/21 06:30 01/30/21 06:30 Labs: Laboratory Results - last 24 hr 01/29/21 10:59: POC Glucose 476 H* 01/29/21 13:00: Glucose 474 H* 01/29/21 16:27: POC Glucose 484 H* 01/29/21 21:26: POC Glucose 430 H 01/30/21 06:30: WBC 9.2, RBC 3.94 L, Hgb 11.1 L, Hct 34.1 L, MCV 86.5, MCH 28.2, MCHC 32.6, RDW Std Deviation 40.5, RDW Coeff of Jay 12.8, Plt Count 148 L, MPV 10.5, Immature Gran % (Auto) 1.100 H, Neut % (Auto) 86.0 H, Lymph % (Auto) 8.2 L , [place] % (Auto) 4.6, Eos % (Auto) 0.0, Baso % (Auto) 0.1, Absolute Neuts (auto) 7.9 H, Absolute Lymphs (auto) 0.75 L, Nucleated RBC % 0 01/30/21 06:30: Sodium 131 L, Potassium 4.2, Chloride 101, Carbon Dioxide 24.0, Anion Gap 6, BUN 42 H, Creatinine 0.90, Estim Creat Clear Calc 50.79, Est GFR (MDRD) Af Amer 82, Est GFR (MDRD) Non-Af 68, BUN/Creatinine Ratio 46.6 H, Glucose 479 H*, Calcium 8.5, Total Bilirubin 0.40, AST 29, ALT 51, Alkaline Phosphatase 116, Total Protein 7.2, Albumin 2.5 L, Globulin 4.7 H, Albumin/Globulin Ratio 0.5 L Micro: Microbiology 01/28/21 17:00 Mucosa - Nose SARS-CoV-2 Antigen (Rapid) - Final SARS-CoV-2 (COVID 19) Physical Exam Narrative GENERAL: cooperative but significantly dyspneic at rest HEENT: Atraumatic; EYES; Anicteric, Normal Conjunctiva NECK; supple, normal thyroid, RESPIRATORY: Diminished to auscultation CARDIOVASCULAR: Regular S1 S2, GI: soft, normoactive bowel sounds, : No Renal angle tenderness; EXTREMITIES: No edema, no clubbing, MUSCULOSKELETAL: no muscle waisting NEURO: Awake; no lateralizing signs. SKIN: No Rash PSYCH; Flat affect Assessment & Plan Assessment/Plan (1) COVID-19: (2) Acute and chronic respiratory failure with hypoxia: PLAN: Patient is a 60-year-old lady admitted with persistent cough. She had received 1 out of 2 Covid vaccine prior to her admission. An assessment of acute hypoxic respiratory failure secondary to SARS-CoV-2 pneumonia made admitted to regular nursing floor for further management 1. Acute hypoxic respiratory failure ?Secondary to SARS-CoV-2 pneumonia. Patient was out of the window for remdesivir she was however started on Decadron in addition to supplemental oxygen which is currently being titrated to keep saturation greater than 90. Patient oxygen requirement had to be increased from 8 L to 10 L if does not improve patient will be placed on Airvo 2. Diabetes mellitus type 2 uncontrolled with hyperglycemia ?Patient uncontrolled diabetes attributed to patient receiving concomitant steroid. Did adjust her long-acting insulin as well as scheduled short acting insulin 3. History of breast CA ?Previous mastectomy currently on anastrozole 4. Hypertension - Blood pressure controlled, home medications continued with dose adjustment as needed 5. DVT prophylaxis ?SC Lovenox 6. Obesity with BMI of 35.3 ?Weight loss advised Charges/Coding Visit Charges Inpatient E&M: 92743 Subs Hosp L3
[2021-01-30] MEDS: INHALER, ASSIST DEVICES 1 EACH SPACER INHALATION ×2 (08:39→20:31)
--- NOTE | 2021-01-30 08:45 | PCS.PANDOC ---
PANDEMIC DOCUMENTATION INITIATED: Date: 01/23/2021 Time: 1900 remains on continuous pulse ox
[2021-01-30] MEDS: Acetaminophen 325 MG Tablet 650 MG PO (08:53)
--- NOTE | 2021-01-30 09:15 | CASEMGMT ---
Pt screened with Palliative Care Screening Tool due to Strata 3, pt did not meet criteria.
--- NOTE | 2021-01-30 11:30 | CASEMGMT ---
Addendum entered by Cassia Leiva 01/30/21 11:46: Pt was tested for COVID at [facility]. Original Note: ARNALDO LEHMAN Assessment: Face to Face with pt for initial transition planning/care coordination assessment. ARNALDO LEHMAN introduced self and role at [facility], pt voices understanding and consents to assessment. Pt is A/O x4 and answers all questions appropriately at this time. Pt lying in bed with O2 on in no distress. Care providers, pharmacy, and demographics verified/updated. Admitting Dx: SARS COV-2 PCP: [facility] Specialists:Pt denies having any specialists. Preferred [facility]acy: [facility] Insurance: MMO Prescription Benefit: yes LW/HPOA: Pt denies having a LW/DPOA. LNOK: Mart Brewer, Living Arrangements: Pt lives with her in an apartment complex. Her apt is on the ground floor with one step to enter. Pt states she is I in ADL's and denies concerns at home. Transportation: Pt drives self and denies concerns with transportation. DME/HHC/SNF: Pt denies having any DME, hx of HHC or SNF stays. Pt states her is also COVID-19 positive. She is aware of quarantining guidelines. She states she does not have anyone who can bring her groceries or supplies. She states she recently stocked up prior to her finding out she had covid. She does have a computer and internet and could purchase groceries online. Provided list of local in network DME companies. Pt chose [employer] should she need O2 at dc. Pt states no concerns with going home at time of dc. Pt states no further concerns/needs. CM to follow. Advised pt to ask CM if any further question/concerns/needs arise, voices understanding. Pt Goal: Home Plan: Home, follow for O2
[2021-01-30] MEDS: Insulin Lispro 100 UNIT/ML INSULN.PEN SC ×3 (11:52→20:16)
[2021-01-30 12:05] LABS: Bedside Glucose 402 mg/dL (70-110)
--- NOTE | 2021-01-30 16:39 | NURSING ---
pt now on stepdown monitor for respiratory stepdown. per Itzel MCINTOSH okay to stay on MS3 for respiratory stepdown for COVID
--- NOTE | 2021-01-30 16:46 | NURSING ---
dredge operator supervisor Marcella aware orders and request by to transfer patient to ICU.
--- NOTE | 2021-01-30 17:36 | NURSING ---
attempted to phone spouse at number listed in demographics sheet- no answer and recording states no voicemail set up. pt informed.
--- NOTE | 2021-01-30 17:50 | NURSING ---
pt on phone with spouse when nurse into pt room- spouse updated on changes to POC and says he is appreciative
[2021-01-30 18:21] LABS: Bedside Glucose 398 mg/dL (70-110)
[2021-01-30] MEDS: traZODone 50 MG Tablet PO (20:15)
[2021-01-30] MEDS: Atorvastatin Calcium 20 MG Tablet PO (20:15)
[2021-01-31] VITALS (38 sets, daily range): BP systolic 92–134; BP diastolic 48–78; PULSE 66–84; RESP 14–30; TEMP 35.9–37.1; O2SAT 87–96
[2021-01-31 01:12] LABS: Bedside Glucose 420 mg/dL (70-110)
[2021-01-31] MEDS: INHALER, ASSIST DEVICES 1 EACH SPACER INHALATION (04:27)
[2021-01-31 04:33] LABS: Absolute Neutrophil Count 8.3 X10^3/uL (2.0-7.7); Basophil# 0.01 X10^3/uL; Basophil% 0.1 % (0-1); Hematocrit 34.3 % (37-47); Hemoglobin 11.3 g/dL (12.0-15.0); Lymphocyte % 9.1 % (19-41); Mean Corp Hgb Conc 32.9 g/dL (32-36); Mean Corpuscular Hgb 28.5 pg (27.0-32.0); Mean Corpuscular Volume 86.4 fL (81-99); Mean Platelet Vol. 10.1 fl (6.2-12.0); Monocyte# 0.49 X10^3/uL; NRBC Flagged by Analyzer 0 % (0-5); Neutrophil # 8.28 X10^3/uL (2.7-7.7); Neutrophil % 83.8 % (47-70); Platelet Count 160 K/mm3 (150-450); RBC Distribution Width CV 12.9 % (11.6-14.6); RBC Distribution Width SD 40.4 fl (35.1-43.9); Red Blood Count 3.97 M/mm3 (4.2-5.4); White Blood Count 9.9 K/mm3 (4.4-11.0)
[2021-01-31 04:53] LABS: Anion Gap 5 (5-15); BUN 36 mg/dL (7-18); BUN/Creat Ratio 50.6 RATIO (10-20); Calcium,Total 8.9 mg/dL (8.5-10.1); Chloride 105 mmol/L (98-107); Creatinine, Serum 0.71 mg/dL (0.55-1.02); EST Glomerular Filtration Rate 89 mL/min (>60); Est Glom Filt Rate - Afr Amer 108 mL/min (>60); Estimated Creatinine Clearance 64.38 ml/min; Glucose 250 mg/dL (74-106); Potassium 4.2 mmol/L (3.5-5.1); Sodium Level 137 mmol/L (136-145)
--- NOTE | 2021-01-31 07:10 | PCM.PN.HOSP ---
Subjective Subjective Patient was transferred from [facility] floor to ICU due to increasing oxygen demands. Her blood glucose also remains uncontrolled due to concomitant use of steroid adjusted insulin doses Objective Data Objective Data Vital Signs: Vital Signs Temp Pulse Resp BP Pulse Ox 96.7 F L 70 21 H 112/58 L 92 01/31/21 05:00 01/31/21 07:00 01/31/21 07:00 01/31/21 07:00 01/31/21 07:00 Oxygen Flow Rate (L/min) 60 Oxygen Delivery Method Airvo Weight: 86 kg Body Mass Index (BMI) 35.2 Intake & Output: Intake and Output for Last 24 Hours 01/29/21 01/30/21 01/31/21 23:59 23:59 23:59 Intake Total 1050 / 1050 460 / 460 360 / 360 Output Total 1250 / 1250 1950 / 1950 200 / 200 Balance -200 / -200 -1490 / -1490 160 / 160 Lab / Micro Data Result Diagrams: 01/31/21 04:25 01/31/21 04:25 Labs: Laboratory Results - last 24 hr 01/30/21 06:30: Sodium 131 L, Potassium 4.2, Chloride 101, Carbon Dioxide 24.0, Anion Gap 6, BUN 42 H, Creatinine 0.90, Estim Creat Clear Calc 50.79, Est GFR (MDRD) Af Amer 82, Est GFR (MDRD) Non-Af 68, BUN/Creatinine Ratio 46.6 H, Glucose 479 H*, Calcium 8.5, Total Bilirubin 0.40, AST 29, ALT 51, Alkaline Phosphatase 116, Total Protein 7.2, Albumin 2.5 L, Globulin 4.7 H, Albumin/Globulin Ratio 0.5 L 01/30/21 11:46: POC Glucose 402 H 01/30/21 16:35: POC Glucose 398 H 01/30/21 20:12: POC Glucose 420 H 01/31/21 04:25: WBC 9.9, RBC 3.97 L, Hgb 11.3 L, Hct 34.3 L, MCV 86.4, MCH 28.5, MCHC 32.9, RDW Std Deviation 40.4, RDW Coeff of Jay 12.9, Plt Count 160, MPV 10.1, Immature Gran % (Auto) 2.000 H, Neut % (Auto) 83.8 H, Lymph % (Auto) 9.1 L, [place] % (Auto) 5.0, Eos % (Auto) 0.0, Baso % (Auto) 0.1, Absolute Neuts (auto) 8.3 H, Absolute Lymphs (auto) 0.90, Nucleated RBC % 0 01/31/21 04:25: Sodium 137, Potassium 4.2, Chloride 105, Carbon Dioxide 27.0, Anion Gap 5, BUN 36 H, Creatinine 0.71, Estim Creat Clear Calc 64.38, Est GFR (MDRD) Af Amer 108, Est GFR (MDRD) Non-Af 89, BUN/Creatinine Ratio 50.6 H, Glucose 250 H, Calcium 8.9 Micro: Microbiology 01/28/21 17:00 Mucosa - Nose SARS-CoV-2 Antigen (Rapid) - Final SARS-CoV-2 (COVID 19) Physical Exam Narrative GENERAL: cooperative but significantly dyspneic at rest HEENT: Atraumatic; EYES; Anicteric, Normal Conjunctiva NECK; supple, normal thyroid, RESPIRATORY: Diminished to auscultation CARDIOVASCULAR: Regular S1 S2, GI: soft, normoactive bowel sounds, : No Renal angle tenderness; EXTREMITIES: No edema, no clubbing, MUSCULOSKELETAL: no muscle waisting NEURO: Awake; no lateralizing signs. SKIN: No Rash PSYCH; Flat affect Assessment & Plan Assessment/Plan (1) COVID-19: (2) Acute and chronic respiratory failure with hypoxia: PLAN: Patient is a 60-year-old lady admitted with persistent cough. She had received 1 out of 2 Covid vaccine prior to her admission. An assessment of acute hypoxic respiratory failure secondary to SARS-CoV-2 pneumonia made admitted to regular nursing floor for further management 1. Acute hypoxic respiratory failure ?Secondary to SARS-CoV-2 pneumonia. Patient was out of the window for remdesivir she was however started on Decadron in addition to supplemental oxygen which is currently being titrated to keep saturation greater than 90. Patient oxygen requirement had to be increased from 8 L to 10 L if does not improve patient will be placed on Airvo -01/31/2021 patient was transferred from [facility] floor to ICU due to increasing oxygen demands. Consult placed to pulmonary medicine and ID 2. Diabetes mellitus type 2 uncontrolled with hyperglycemia ?Patient uncontrolled diabetes attributed to patient receiving concomitant steroid. Did adjust her long-acting insulin as well as scheduled short acting insulin -01/31/2021 her blood glucose also remains uncontrolled due to concomitant use of steroid adjusted insulin doses 3. History of breast CA ?Previous mastectomy currently on anastrozole 4. Hypertension - Blood pressure controlled, home medications continued with dose adjustment as needed 5. DVT prophylaxis ?SC Lovenox 6. Obesity with BMI of 35.3 ?Weight loss advised Charges/Coding Visit Charges Inpatient E&M: 84125 Subs Hosp L3
--- NOTE | 2021-01-31 07:17 | CON.PCM.CC_ITS ---
Assessment & Plan Assessment/Plan (1) Acute and chronic respiratory failure with hypoxia: (2) COVID-19: PLAN: RECOMMENDATIONS: 1. Continue heated high flow oxygen to maintain saturations at or above 90%. 2. Continue Decadron to complete 10-day treatment course. 3. Continue Lovenox twice daily. 4. Encourage incentive spirometer use and mobilize patient as tolerated. 5. Maintain euvolemic state with as needed diuretic therapy as needed. IMPRESSIONS: 1. Acute hypoxemic respiratory failure secondary to COVID-19 pneumonia The patient presented to the hospital with approximately 2 weeks of symptoms. She is currently outside of the window to receive remdesivir. Plan to continue current supportive measures with heated high flow oxygen to maintain saturations at or above 90%. In addition, the patient will be continued on Decadron to complete a 10-day treatment course. Lovenox twice daily will also be continued. BiPAP can be utilized, if the patient is unable to maintain appropriate saturations on heated high flow. She did make it clear to me that she would not want to be intubated. Recommend maintaining a euvolemic state with as needed diuretic therapy, as needed. 2. Diabetes mellitus/history of breast CA/hypertension/obesity/hyperlipidemia Complicates care, management, recovery and prognosis. Continue Lantus and sliding scale insulin coverage. Mobilize patient as tolerated. This note was generated with [employer] dictation software. It may contain incorrect words, spelling, and punctuation that were not noted in checking the note before signing. HPI Consult Data Date of Consult: 01/31/21 HPI Narrative Reason for Consultation: Acute hypoxemic respiratory failure secondary to COVID- 19 pneumonia HPI Narrative: The patient is a 60-year-old female, with a history as outlined below, who initially presented to the emergency department on January 28 with progressive dyspnea and cough of approximately 2 weeks duration. The patient does have a history of breast cancer. She was exposed to her who was positive for Covid recently. The patient received the first dose of her Covid vaccination earlier this month. On presentation to the emergency department, the patient was noted to be afebrile and hemodynamically stable. Initial laboratory evaluation revealed evidence of pancytopenia. Chemistry profile was notable for a sodium of 135. Lactate was within normal limits at 1.4. AST and ALT were increased to 69 and 76, respectively. Procalcitonin was noted to be 0.13. CTA chest showed no juliet dence for pulmonary embolism. Patchy bilateral groundglass opacities were noted. Blood cultures were obtained. Rapid coronavirus antigen testing was positive. The patient was subsequently admitted to the hospital and placed on Decadron. Overnight, the patient was transferred to the medical intensive care unit due to increasing oxygen demands. She is currently being maintained on Airvo heated high flow oxygen with a flow rate of 60 L/min and FiO2 of 85%. The patient is currently documented to be overall net -1.5 L for the hospital admission. FORMERLY [facility] Medical History Breast cancer Cancer Cancer Diabetes GERD (gastroesophageal reflux disease) GI bleed Hypercholesterolemia Hypertension Pancreatitis Home Medications atorvastatin 20 mg PO QHS 02/07/18 [History Last Taken Unknown] cyanocobalamin (vitamin B-12) [Vitamin B-12] 500 mcg PO DAILY 02/07/18 [History Last Taken Unknown] fluoxetine 40 mg PO DAILY 02/07/18 [History Last Taken Unknown] ibuprofen 200 mg PO PRN PRN 02/07/18 [History Last Taken 12/27/17] lisinopril [Prinivil] 2.5 mg PO DAILY 02/07/18 [History Last Taken 03/17/18 08:00] metformin 1,000 mg PO BID 02/07/18 [History Last Taken Unknown] anastrozole 1 mg PO DAILY 01/28/21 [History Last Taken Unknown] bupropion HCl 150 mg PO DAILY 01/28/21 [History Last Taken Unknown] gabapentin 400 mg PO TID 01/28/21 [History Last Taken Unknown] insulin glargine [Lantus U-100 Insulin] 32 unit SUBCUT BID 01/28/21 [History Last Taken Unknown] insulin lispro [Humalog KwikPen Insulin] 24 unit SUBCUT TID 01/28/21 [History Last Taken Unknown] trazodone 50 mg PO QHS 01/28/21 [History Last Taken Unknown] Allergy/AdvReac Type Severity Reaction Status Date / Time diphenhydramine AdvReac Other Verified 01/28/21 16:23 [From Benadryl] morphine AdvReac Other Verified 01/28/21 16:23 Family History (Updated 01/28/21 @ 19:[address] Vamshi Tomas MD) Other Cancer Diabetes Thyroid disorder Surgical History (Updated 01/28/21 @ 21:05 by Santa [place]) H/O mastectomy H/O: hysterectomy History of cholecystectomy Social History Smoking Status: Never smoker substance use type: does not use ROS Constitutional Constitutional: Reports fatigue, fever(s), headache(s) and malaise Eyes Eyes: Denies blurry vision or change in vision ENT HEENT: Denies dysphagia, loss taste/smell or nasal congestion Cardiovascular Cardiovascular: Reports dyspnea; Denies chest pain Respiratory/Chest Respiratory/Chest: Reports cough and dyspnea Gastrointestinal Gastrointestinal: Denies abdominal pain, diarrhea, nausea or vomiting Genitourinary Genitourinary: Denies difficulty urinating Musculoskeletal Musculoskeletal: Reports arthralgias Integumentary Integumentary: Denies lesions, rash or skin ulcer Neurologic Neurologic: Denies abnormal gait or abnormal speech Psychiatric Psychiatric: Denies anxiety or depression Endocrine Endocrinology: Reports fatigue Hematologic/Lymphatic Hematologic/Lymphatic: Denies easy bleeding or easy bruising Physical Exam Const alert and no apparent distress General Appearance: cooperative Nutritional Appearance: obese HEENT normocephalic and head/scalp atraumatic Eyes PERRL, EOMs intact bilaterally and conjunctivae normal Neck supple General: trachea midline Resp normal respiratory effort and no use of accessory muscles Effort and Inspection: tachypneic Auscultation: wheezes and diminished lung sounds; Negative for rales or rhonchi Cardio regular rate and regular rhythm GI normal to inspection, nondistended, normoactive bowel sounds Extremity no clubbing, cyanosis or edema Skin no rashes or lesions noted Neuro CN's II-XII intact bilaterally and no focal motor deficits Psych cooperative and affect normal Lab / Micro Data Result Diagrams: 01/31/21 04:25 01/31/21 04:25 Labs: Laboratory Results - last 24 hr 01/30/21 06:30: Sodium 131 L, Potassium 4.2, Chloride 101, Carbon Dioxide 24.0, Anion Gap 6, BUN 42 H, Creatinine 0.90, Estim Creat Clear Calc 50.79, Est GFR (MDRD) Af Amer 82, Est GFR (MDRD) Non-Af 68, BUN/Creatinine Ratio 46.6 H, Glucose 479 H*, Calcium 8.5, Total Bilirubin 0.40, AST 29, ALT 51, Alkaline Phosphatase 116, Total Protein 7.2, Albumin 2.5 L, Globulin 4.7 H, Albumin/Globulin Ratio 0.5 L 01/30/21 11:46: POC Glucose 402 H 01/30/21 16:35: POC Glucose 398 H 01/30/21 20:12: POC Glucose 420 H 01/31/21 04:25: WBC 9.9, RBC 3.97 L, Hgb 11.3 L, Hct 34.3 L, MCV 86.4, MCH 28.5, MCHC 32.9, RDW Std Deviation 40.4, RDW Coeff of Jay 12.9, Plt Count 160, MPV 10.1, Immature Gran % (Auto) 2.000 H, Neut % (Auto) 83.8 H, Lymph % (Auto) 9.1 L , [place] % (Auto) 5.0, Eos % (Auto) 0.0, Baso % (Auto) 0.1, Absolute Neuts (auto) 8.3 H, Absolute Lymphs (auto) 0.90, Nucleated RBC % 0 01/31/21 04:25: Sodium 137, Potassium 4.2, Chloride 105, Carbon Dioxide 27.0, Anion Gap 5, BUN 36 H, Creatinine 0.71, Estim Creat Clear Calc 64.38, Est GFR (MDRD) Af Amer 108, Est GFR (MDRD) Non-Af 89, BUN/Creatinine Ratio 50.6 H, Glucose 250 H, Calcium 8.9 Charges/Coding Visit Charges Inpatient E&M: 35787 Init Hosp L3
[2021-01-31] MEDS: Acetaminophen 325 MG Tablet 650 MG PO ×2 (08:13→16:38)
[2021-01-31] MEDS: Cyanocobalamin 500 MCG Tablet PO (08:18)
[2021-01-31] MEDS: buPROPion (XL) 150 MG TABLET.XL PO (08:18)
[2021-01-31] MEDS: Anastrozole 1 MG TABLET PO (08:19)
[2021-01-31] MEDS: FLUoxetine 20 MG Capsule 40 MG PO (08:19)
[2021-01-31] MEDS: dexAMETHasone 2 MG TABLET 6 MG PO (08:19)
[2021-01-31] MEDS: Lisinopril 2.5 MG Tablet PO (08:19)
[2021-01-31] MEDS: guaiFENesin 1,200 MG Tablet 1200 MG PO ×2 (08:20→20:23)
[2021-01-31] MEDS: Gabapentin 400 MG Capsule PO ×3 (08:20→20:24)
[2021-01-31] MEDS: Enoxaparin 30 MG/0.3 ML Syringe SC ×2 (08:22→20:23)
[2021-01-31] MEDS: Insulin Lispro 100 UNIT/ML INSULN.PEN 40 UNIT SC ×3 (08:27→16:32)
[2021-01-31] MEDS: Insulin Lispro 100 UNIT/ML INSULN.PEN SC ×4 (08:28→20:30)
[2021-01-31] MEDS: Nystatin Powder 15gm Bottle 1 APPLIC TOPICAL ×2 (08:34→20:24)
--- NOTE | 2021-01-31 08:46 | NURSING ---
pandemic charting in effect
[2021-01-31 08:56] LABS: Bedside Glucose 259 mg/dL (70-110)
--- NOTE | 2021-01-31 10:06 | CON.PCM.ID_ITS ---
Assessment & Plan Assessment/Plan (1) Acute and chronic respiratory failure with hypoxia: (2) COVID-19: PLAN: Sx for 2 weeks. Has been vaccinated. On airvo, dex for 10 day course. also covid (+), improving at home. Isolate for one more week. CT neg for PE. Will follow, thank you HPI Consult Data Date of Consult: 01/31/21 HPI Narrative HPI Narrative: ALYSSIA HAYDEN, is a 60 F who presented with 2 weeks of dry cough, fatigue, congestion, not feeling well. She and are vaccinated, both sick and (+) for covid. improving. She came to ED due to dyspnea, started on steroids and airvo, feeling better this Am. No change in taste and smell. Mild aches. No n/v/d. Full ROS performed and neg except as noted above. [facility] Medical History Breast cancer Cancer Cancer Diabetes GERD (gastroesophageal reflux disease) GI bleed Hypercholesterolemia Hypertension Pancreatitis Home Medications atorvastatin 20 mg PO QHS 02/07/18 [History Last Taken Unknown] cyanocobalamin (vitamin B-12) [Vitamin B-12] 500 mcg PO DAILY 02/07/18 [History Last Taken Unknown] fluoxetine 40 mg PO DAILY 02/07/18 [History Last Taken Unknown] ibuprofen 200 mg PO PRN PRN 02/07/18 [History Last Taken 12/27/17] lisinopril [Prinivil] 2.5 mg PO DAILY 02/07/18 [History Last Taken 03/17/18 08:00] metformin 1,000 mg PO BID 02/07/18 [History Last Taken Unknown] anastrozole 1 mg PO DAILY 01/28/21 [History Last Taken Unknown] bupropion HCl 150 mg PO DAILY 01/28/21 [History Last Taken Unknown] gabapentin 400 mg PO TID 01/28/21 [History Last Taken Unknown] insulin glargine [Lantus U-100 Insulin] 32 unit SUBCUT BID 01/28/21 [History Last Taken Unknown] insulin lispro [Humalog KwikPen Insulin] 24 unit SUBCUT TID 01/28/21 [History Last Taken Unknown] trazodone 50 mg PO QHS 01/28/21 [History Last Taken Unknown] Allergy/AdvReac Type Severity Reaction Status Date / Time diphenhydramine AdvReac Other Verified 01/28/21 16:23 [From Benadryl] morphine AdvReac Other Verified 01/28/21 16:23 Family History (Updated 01/28/21 @ 19:[address] Vamshi Tomas MD) Other Cancer Diabetes Thyroid disorder Surgical History (Updated 01/28/21 @ 21:05 by Santa [place]) H/O mastectomy H/O: hysterectomy History of cholecystectomy Social History Smoking Status: Never smoker substance use type: does not use Physical Exam Const alert and oriented x3 General Appearance: cooperative Exam Limitations: no limitations HEENT normocephalic and head/scalp atraumatic Eyes PERRL and EOMs intact bilaterally Neck supple and No nodes Resp Auscultation: diminished lung sounds Cardio Rate: tachycardic GI normal to inspection, nondistended, normoactive bowel sounds Extremity no clubbing, cyanosis or edema Skin no rashes or lesions noted Neuro CN's II-XII intact bilaterally Lab / Micro Data Result Diagrams: 01/31/21 04:25 01/31/21 04:25 Labs: Laboratory Results - last 24 hr 01/30/21 11:46: POC Glucose 402 H 01/30/21 16:35: POC Glucose 398 H 01/30/21 20:12: POC Glucose 420 H 01/31/21 04:25: WBC 9.9, RBC 3.97 L, Hgb 11.3 L, Hct 34.3 L, MCV 86.4, MCH 28.5, MCHC 32.9, RDW Std Deviation 40.4, RDW Coeff of Jay 12.9, Plt Count 160, MPV 10.1, Immature Gran % (Auto) 2.000 H, Neut % (Auto) 83.8 H, Lymph % (Auto) 9.1 L , [place] % (Auto) 5.0, Eos % (Auto) 0.0, Baso % (Auto) 0.1, Absolute Neuts (auto) 8.3 H, Absolute Lymphs (auto) 0.90, Nucleated RBC % 0 01/31/21 04:25: Sodium 137, Potassium 4.2, Chloride 105, Carbon Dioxide 27.0, Anion Gap 5, BUN 36 H, Creatinine 0.71, Estim Creat Clear Calc 64.38, Est GFR (MDRD) Af Amer 108, Est GFR (MDRD) Non-Af 89, BUN/Creatinine Ratio 50.6 H, Glucose 250 H, Calcium 8.9 01/31/21 08:23: POC Glucose 259 H Micro: Microbiology 01/28/21 17:00 Blood Culture (Wb) - Anticubital Left Blood Culture - Final No growth in 5 days. 01/28/21 16:55 Blood Culture (Wb) - Left Hand Blood Culture - Final No growth in 5 days.
--- NOTE | 2021-01-31 11:05 | CASEMGMT ---
ARNALDO LEHMAN participated in ICU multidisciplinary rounds. Patient is currently on Airvo FiO2@ 85%, 60lpm. Patient is on PO dexamethasone. Will montior for need for home oxygen at discharge. CM will continue to follow this patient and plan for a safe discharge.
[2021-01-31 13:01] LABS: Bedside Glucose 284 mg/dL (70-110)
[2021-01-31 17:20] LABS: Bedside Glucose 303 mg/dL (70-110)
[2021-01-31] MEDS: Atorvastatin Calcium 20 MG Tablet PO (20:23)
[2021-01-31] MEDS: traZODone 50 MG Tablet PO (20:23)
[2021-01-31] MEDS: Ibuprofen 200 MG Tablet PO (21:00)
[2021-01-31 21:05] LABS: Bedside Glucose 199 mg/dL (70-110)
--- NOTE | 2021-01-31 21:35 | NURSING ---
po staying in 86-87. resp here to adjust airvo%
[2021-02-01] VITALS (39 sets, daily range): BP systolic 95–154; BP diastolic 55–118; PULSE 65–104; RESP 12–31; TEMP 36.1–37.3; O2SAT 84–98
--- NOTE | 2021-02-01 00:04 | PCM.HOSP.N ---
Hospitalist Note Informed by Brandie RT patient is currently at 90% on air Vo and may soon need BiPAP. Informed Dr. Gorman of change in patient's oxygenation status to which she agreed BiPAP was appropriate. BiPAP stat order entered.
--- NOTE | 2021-02-01 06:42 | PN.CC_ITS ---
Assessment & Plan Assessment/Plan (1) Acute and chronic respiratory failure with hypoxia: (2) COVID-19: PLAN: RECOMMENDATIONS: 1. Continue noninvasive positive pressure ventilatory support and wean FiO2 as tolerated to maintain saturations at or above 90%. 2. Continue Decadron to complete 10-day treatment course. 3. Continue Lovenox twice daily. 4. Encourage incentive spirometer use and mobilize patient as tolerated. 5. Maintain euvolemic state with as needed diuretic therapy as needed. Check BNP this morning. IMPRESSIONS: 1. Acute hypoxemic respiratory failure secondary to COVID-19 pneumonia The patient presented to the hospital with approximately 2 weeks of symptoms. She is currently outside of the window to receive remdesivir. Plan to continue current supportive measures including noninvasive positive pressure ventilatory support. Unfortunately, the patient has worsened from a respiratory perspective. She remains a DNR CCA without intubation. We will continue attempts to wean FiO2 as tolerated to maintain saturations at or above 90%. The patient will be continued on Decadron to complete a 10-day treatment course. Lovenox twice daily will also be continued. Recommend maintaining a euvolemic state with as needed diuretic therapy, as needed. Will check BMP this morning. 2. Diabetes mellitus/history of breast CA/hypertension/obesity/hyperlipidemia Complicates care, management, recovery and prognosis. Continue Lantus and sliding scale insulin coverage. Mobilize patient as tolerated. TIME: 36 minutes of critical care time, independent of procedures, was spent addressing the patient's acute hypoxemic respiratory failure secondary to COVID- 19 pneumonia, review of all data and collaboration with the care team. ([id number]) Subjective Subjective The patient was seen and examined at the bedside this morning. Events from the last 24 hours have been reviewed. The patient is currently afebrile, hemodynamically stable and maintaining appropriate oxygen saturations on BiPAP with an FiO2 requirement of 90%. Unfortunately, the patient was unable to maintain her oxygen saturations on heated high flow and had to be transition to continuous noninvasive positive pressure ventilatory support. She is currently documented to be overall net -1.8 L for the hospital admission. The patient remains on Decadron and twice daily Lovenox. Objective Data Objective Data The patient's most recent lab work, culture data and imaging studies have all been personally reviewed. Rapid coronavirus antigen testing was positive on January 28. Vital Signs: Vital Signs Temp Pulse Resp BP Pulse Ox 97.9 F 76 21 H 112/84 H 91 02/01/21 04:00 02/01/21 06:00 02/01/21 06:00 02/01/21 06:00 02/01/21 06:00 Oxygen Flow Rate (L/min) 96 Oxygen Delivery Method Bi-pap Weight: 85.7 kg Body Mass Index (BMI) 35.2 Intake & Output: Intake and Output for Last 24 Hours 01/30/21 01/31/21 02/01/21 23:59 23:59 23:59 Intake Total 460 / 460 1060 / 1060 Output Total 1950 / 1950 1200 / 1200 Balance -1490 / -1490 -140 / -140 Lab / Micro Data Attestation: I reviewed the patient's lab results. Result Diagrams: 02/01/21 04:20 02/01/21 04:20 Labs: Laboratory Results - last 24 hr 01/31/21 08:23: POC Glucose 259 H 01/31/21 12:37: POC Glucose 284 H 01/31/21 16:25: POC Glucose 303 H 01/31/21 20:28: POC Glucose 199 H Micro: Microbiology 01/28/21 17:00 Blood Culture (Wb) - Anticubital Left Blood Culture - Final No growth in 5 days. 01/28/21 16:55 Blood Culture (Wb) - Left Hand Blood Culture - Final No growth in 5 days. 01/28/21 17:00 Mucosa - Nose SARS-CoV-2 Antigen (Rapid) - Final SARS-CoV-2 (COVID 19) Physical Exam Const alert General Appearance: cooperative, ill appearing and on BiPAP Nutritional Appearance: obese HEENT normocephalic and head/scalp atraumatic Eyes PERRL, EOMs intact bilaterally and conjunctivae normal Neck supple General: trachea midline Resp Effort and Inspection: tachypneic Auscultation: diminished lung sounds; Negative for rales, rhonchi or wheezes Cardio regular rate and regular rhythm GI normal to inspection, nondistended, normoactive bowel sounds Extremity no clubbing, cyanosis or edema Skin no rashes or lesions noted Neuro CN's II-XII intact bilaterally and no focal motor deficits Psych cooperative and affect normal Charges/Coding Procedures Hospitalists Procedures: 93056 Critial Care 1st Hr
[2021-02-01 06:51] LABS: Absolute Lymphocyte Count 0.91 X10^3/uL (0.83-4.51); Absolute Neutrophil Count 8.8 X10^3/uL (2.0-7.7); Basophil# 0.02 X10^3/uL; Basophil% 0.2 % (0-1); Eosinophil# 0.02 X10^3/uL; Eosinophils% 0.2 % (0-5); Hematocrit 37.6 % (37-47); Lymphocyte # 0.91 X10^3/ul (0.83-4.51); Mean Corp Hgb Conc 31.9 g/dL (32-36); Mean Corpuscular Hgb 27.9 pg (27.0-32.0); Mean Corpuscular Volume 87.4 fL (81-99); Mean Platelet Vol. 10.6 fl (6.2-12.0); Monocyte# 0.31 X10^3/uL; Monocyte% 3.1 % (0-10); NRBC Flagged by Analyzer 0 % (0-5); Neutrophil # 8.76 X10^3/uL (2.7-7.7); Neutrophil % 86.3 % (47-70); Platelet Count 172 K/mm3 (150-450); RBC Distribution Width CV 13.1 % (11.6-14.6); RBC Distribution Width SD 41.5 fl (35.1-43.9); White Blood Count 10.1 K/mm3 (4.4-11.0)
[2021-02-01 07:04] LABS: ALB/GLOB Ratio 0.5 RATIO (0.9-2.4); AST(SGOT) 60 U/L (15-37); Alanine Aminotransfer ALT/SGPT 50 U/L (13-56); Albumin, Serum 2.4 g/dL (3.2-5.0); Alkaline Phosphatase 131 U/L (45-117); Anion Gap 3 (5-15); BUN 32 mg/dL (7-18); BUN/Creat Ratio 55.8 RATIO (10-20); Calcium,Total 8.7 mg/dL (8.5-10.1); Chloride 109 mmol/L (98-107); Creatinine, Serum 0.57 mg/dL (0.55-1.02); EST Glomerular Filtration Rate 114 mL/min (>60); Est Glom Filt Rate - Afr Amer 138 mL/min (>60); Estimated Creatinine Clearance 80.19 ml/min; Glucose 72 mg/dL (74-106); Potassium 4.3 mmol/L (3.5-5.1); Protein, Total 7.4 g/dL (6.4-8.2); Sodium Level 140 mmol/L (136-145)
--- NOTE | 2021-02-01 07:04 | PCM.PN.HOSP ---
Subjective Subjective Patient remains in ICU with increasing oxygen requirement. Patient had to be placed on BiPAP during the night.. Patient had a relative hypoglycemic episode with glucose level of 72 subsequent adjustment made to her insulin regimen Objective Data Objective Data Vital Signs: Vital Signs Temp Pulse Resp BP Pulse Ox 97.9 F 83 20 H 117/76 91 02/01/21 04:00 02/01/21 07:00 02/01/21 07:00 02/01/21 07:00 02/01/21 07:00 Oxygen Flow Rate (L/min) 96 Oxygen Delivery Method Bi-pap Weight: 85.7 kg Body Mass Index (BMI) 35.2 Intake & Output: Intake and Output for Last 24 Hours 01/30/21 01/31/21 02/01/21 23:59 23:59 23:59 Intake Total 460 / 460 1060 / 1060 Output Total 1950 / 1950 1200 / 1200 Balance -1490 / -1490 -140 / -140 Lab / Micro Data Result Diagrams: 02/01/21 04:20 02/01/21 04:20 Labs: Laboratory Results - last 24 hr 01/31/21 08:23: POC Glucose 259 H 01/31/21 12:37: POC Glucose 284 H 01/31/21 16:25: POC Glucose 303 H 01/31/21 20:28: POC Glucose 199 H 02/01/21 04:20: WBC 10.1, RBC 4.30, Hgb 12.0, Hct 37.6, MCV 87.4, MCH 27.9, MCHC 31.9 L, RDW Std Deviation 41.5, RDW Coeff of Jay 13.1, Plt Count 172, MPV 10.6, Immature Gran % (Auto) 1.200 H, Neut % (Auto) 86.3 H, Lymph % (Auto) 9.0 L, [place] % (Auto) 3.1, Eos % (Auto) 0.2, Baso % (Auto) 0.2, Absolute Neuts (auto) 8.8 H, Absolute Lymphs (auto) 0.91, Nucleated RBC % 0 Micro: Microbiology 01/28/21 17:00 Blood Culture (Wb) - Anticubital Left Blood Culture - Final No growth in 5 days. 01/28/21 16:55 Blood Culture (Wb) - Left Hand Blood Culture - Final No growth in 5 days. 01/28/21 17:00 Mucosa - Nose SARS-CoV-2 Antigen (Rapid) - Final SARS-CoV-2 (COVID 19) Physical Exam Narrative GENERAL: On BiPAP HEENT: Atraumatic; EYES; Anicteric, Normal Conjunctiva NECK; supple, normal thyroid, RESPIRATORY: Diminished to auscultation CARDIOVASCULAR: Regular S1 S2, GI: soft, normoactive bowel sounds, : No Renal angle tenderness; EXTREMITIES: No edema, no clubbing, MUSCULOSKELETAL: no muscle waisting NEURO: Awake; no lateralizing signs. SKIN: No Rash PSYCH; Flat affect Assessment & Plan Assessment/Plan (1) COVID-19: (2) Acute and chronic respiratory failure with hypoxia: PLAN: Patient is a 60-year-old lady admitted with persistent cough. She had received 1 out of 2 Covid vaccine prior to her admission. An assessment of acute hypoxic respiratory failure secondary to SARS-CoV-2 pneumonia made admitted to regular nursing floor for further management 1. Acute hypoxic respiratory failure ?Secondary to SARS-CoV-2 pneumonia. Patient was out of the window for remdesivir she was however started on Decadron in addition to supplemental oxygen which is currently being titrated to keep saturation greater than 90. Patient oxygen requirement had to be increased from 8 L to 10 L if does not improve patient will be placed on Airvo -01/31/2021 patient was transferred from [facility] floor to ICU due to increasing oxygen demands. Consult placed to pulmonary medicine and ID ?02/01/2021 patient remains in ICU with increasing oxygen requirement. Patient had to be placed on BiPAP during the night. 2. Diabetes mellitus type 2 uncontrolled with hyperglycemia ?Patient uncontrolled diabetes attributed to patient receiving concomitant steroid. Did adjust her long-acting insulin as well as scheduled short acting insulin -01/31/2021 her blood glucose also remains uncontrolled due to concomitant use of steroid adjusted insulin doses ?02/01/2021 ;patient had a relative hypoglycemic episode with glucose level of 72 subsequent adjustment made to her insulin regimen 3. History of breast CA ?Previous mastectomy currently on anastrozole 4. Hypertension - Blood pressure controlled, home medications continued with dose adjustment as needed 5. DVT prophylaxis ?SC Lovenox 6. Obesity with BMI of 35.3 ?Weight loss advised Charges/Coding Visit Charges Inpatient E&M: 17079 Subs Hosp L3
[2021-02-01 07:40] LABS: BNP,B-Type NATRIURETIC PEPTIDE 60.2 pg/mL (0-100)
[2021-02-01 07:49] LABS: Procalcitonin 0.15 ng/mL (0.00-0.09)
[2021-02-01] MEDS: Senna/Docusate Sodium 1 Tablet 2 TABLET PO (09:12)
[2021-02-01] MEDS: buPROPion (XL) 150 MG TABLET.XL PO (09:13)
[2021-02-01] MEDS: dexAMETHasone 2 MG TABLET 6 MG PO (09:13)
[2021-02-01] MEDS: Enoxaparin 30 MG/0.3 ML Syringe SC ×2 (09:13→19:38)
[2021-02-01] MEDS: Gabapentin 400 MG Capsule PO ×3 (09:13→19:38)
[2021-02-01] MEDS: FLUoxetine 20 MG Capsule 40 MG PO (09:13)
[2021-02-01] MEDS: Cyanocobalamin 500 MCG Tablet PO (09:14)
[2021-02-01] MEDS: Anastrozole 1 MG TABLET PO (09:14)
[2021-02-01] MEDS: guaiFENesin 1,200 MG Tablet 1200 MG PO ×2 (09:14→19:38)
[2021-02-01] MEDS: Lisinopril 2.5 MG Tablet PO (09:14)
[2021-02-01 09:27] LABS: Bedside Glucose 65 mg/dL (70-110)
[2021-02-01] MEDS: Nystatin Powder 15gm Bottle 1 APPLIC TOPICAL ×2 (09:27→19:44)
[2021-02-01 11:56] LABS: Bedside Glucose 123 mg/dL (70-110)
[2021-02-01] MEDS: Insulin Lispro 100 UNIT/ML INSULN.PEN SC ×2 (17:09→19:40)
[2021-02-01] MEDS: Insulin Lispro 100 UNIT/ML INSULN.PEN 25 UNIT SC (17:10)
[2021-02-01 17:15] LABS: Bedside Glucose 293 mg/dL (70-110)
[2021-02-01] MEDS: Atorvastatin Calcium 20 MG Tablet PO (19:38)
[2021-02-01] MEDS: traZODone 50 MG Tablet PO (19:38)
--- NOTE | 2021-02-01 19:54 | NURSING ---
pt sitting in chair. po 84-86% on airvo 60l. pt asst back to bed and bipap and inhaler given. gown changed
[2021-02-01 20:26] LABS: Bedside Glucose 412 mg/dL (70-110)
[2021-02-01] MEDS: Ibuprofen 200 MG Tablet PO (22:04)
[2021-02-01] MEDS: Acetaminophen 325 MG Tablet 650 MG PO (23:15)
--- NOTE | 2021-02-01 23:54 | NURSING ---
po 86% on bipap with fi02 90%. resp notified
[2021-02-02] VITALS (48 sets, daily range): BP systolic 77–144; BP diastolic 42–89; PULSE 53–98; RESP 14–31; TEMP 36.3–38.6; O2SAT 87–96
--- NOTE | 2021-02-02 04:43 | NURSING ---
pt desat to 79% with bipap on w fi02 at 100% with any activity. Pt recovers fairly quickly
--- NOTE | 2021-02-02 05:48 | PN.CC_ITS ---
Assessment & Plan Assessment/Plan (1) Acute and chronic respiratory failure with hypoxia: (2) COVID-19: PLAN: RECOMMENDATIONS: 1. Continue noninvasive positive pressure ventilatory support and wean FiO2 as tolerated to maintain saturations at or above 90%. 2. Continue Decadron to complete 10-day treatment course. 3. Continue Lovenox twice daily. 4. Obtain repeat chest x-ray this morning. 5. Administer IV Lasix. IMPRESSIONS: 1. Acute hypoxemic respiratory failure secondary to COVID-19 pneumonia The patient presented to the hospital with approximately 2 weeks of symptoms. She was outside of the window to receive remdesivir. Plan to continue current supportive measures including noninvasive positive pressure ventilatory support. Unfortunately, the patient has worsened from a respiratory perspective. She remains a DNR CCA without intubation. We will continue attempts to wean FiO2 as tolerated to maintain saturations at or above 90%. The patient will be continued on Decadron to complete a 10-day treatment course. Lovenox twice daily will also be continued. Recommend maintaining a euvolemic state with as needed diuretic therapy, as needed. 2. Diabetes mellitus/history of breast CA/hypertension/obesity/hyperlipidemia Complicates care, management, recovery and prognosis. Continue Lantus and sliding scale insulin coverage. Mobilize patient as tolerated. TIME: 37 minutes of critical care time, independent of procedures, was spent addressing the patient's acute hypoxemic respiratory failure secondary to COVID- 19 pneumonia, review of all data and collaboration with the care team. ([id number]) Subjective Subjective The patient was seen and examined at the bedside this morning. Events from the last 24 hours have been reviewed. The patient is currently afebrile, hemodynamically stable and maintaining appropriate oxygen saturations on BiPAP with an FiO2 requirement of 100%. The patient is currently documented to be overall net -2.3 L for the hospital admission. The patient appears more distressed this morning with worsening dyspnea. The patient once again confirmed to me this morning that she would not want to be intubated. Objective Data Objective Data The patient's most recent lab work, culture data and imaging studies have all been personally reviewed. Rapid coronavirus antigen testing was positive on January 28. Vital Signs: Vital Signs Temp Pulse Resp BP Pulse Ox 97.8 F 78 19 H 104/63 92 02/02/21 04:00 02/02/21 04:05 02/02/21 04:05 02/02/21 04:00 02/02/21 04:05 Oxygen Flow Rate (L/min) 60 Oxygen Delivery Method Bi-pap Weight: 86.5 kg Body Mass Index (BMI) 35.2 Intake & Output: Intake and Output for Last 24 Hours 01/31/21 02/01/21 02/02/21 23:59 23:59 23:59 Intake Total 1060 / 1060 740 / 740 60 / 60 Output Total 1200 / 1200 1300 / 1300 Balance -140 / -140 -560 / -560 60 / 60 Lab / Micro Data Attestation: I reviewed the patient's lab results. Result Diagrams: 02/01/21 04:20 02/01/21 04:20 Labs: Laboratory Results - last 24 hr 02/01/21 04:20: WBC 10.1, RBC 4.30, Hgb 12.0, Hct 37.6, MCV 87.4, MCH 27.9, MCHC 31.9 L, RDW Std Deviation 41.5, RDW Coeff of Jay 13.1, Plt Count 172, MPV 10.6, Immature Gran % (Auto) 1.200 H, Neut % (Auto) 86.3 H, Lymph % (Auto) 9.0 L, [place] % (Auto) 3.1, Eos % (Auto) 0.2, Baso % (Auto) 0.2, Absolute Neuts (auto) 8.8 H, Absolute Lymphs (auto) 0.91, Nucleated RBC % 0 02/01/21 04:20: Sodium 140, Potassium 4.3, Chloride 109 H, Carbon Dioxide 28.0, Anion Gap 3 L, BUN 32 H, Creatinine 0.57, Estim Creat Clear Calc 80.19, Est GFR (MDRD) Af Amer 138, Est GFR (MDRD) Non-Af 114, BUN/Creatinine Ratio 55.8 H, Glucose 72 L, Calcium 8.7, Total Bilirubin 0.30, AST 60 H, ALT 50, Alkaline Phosphatase 131 H, Total Protein 7.4, Albumin 2.4 L, Globulin 5.0 H, Albumin/Globulin Ratio 0.5 L 02/01/21 04:20: B-Natriuretic Peptide 60.2 02/01/21 04:20: Procalcitonin 0.15 H 02/01/21 09:05: POC Glucose 65 L 02/01/21 11:39: POC Glucose 123 H 02/01/21 17:08: POC Glucose 293 H 02/01/21 19:37: POC Glucose 412 H Micro: Microbiology 01/28/21 17:00 Blood Culture (Wb) - Anticubital Left Blood Culture - Final No growth in 5 days. 01/28/21 16:55 Blood Culture (Wb) - Left Hand Blood Culture - Final No growth in 5 days. 01/28/21 17:00 Mucosa - Nose SARS-CoV-2 Antigen (Rapid) - Final SARS-CoV-2 (COVID 19) Physical Exam Const alert General Appearance: cooperative, ill appearing and on BiPAP Nutritional Appearance: obese HEENT normocephalic and head/scalp atraumatic Eyes PERRL, EOMs intact bilaterally and conjunctivae normal Neck supple General: trachea midline Resp Effort and Inspection: tachypneic Auscultation: diminished lung sounds; Negative for rales, rhonchi or wheezes Cardio regular rate and regular rhythm GI normal to inspection, nondistended, normoactive bowel sounds Extremity no clubbing, cyanosis or edema Skin no rashes or lesions noted Neuro CN's II-XII intact bilaterally and no focal motor deficits Psych cooperative and affect normal Charges/Coding Procedures Hospitalists Procedures: [id number] Critial Care 1st Hr
--- NOTE | 2021-02-02 05:49 | RAD_ITS ---
STUDY: X-RAY CHEST REASON FOR EXAM: Female, 60 years old. Respiratory Failure TECHNIQUE: Single AP portable view of the chest. COMPARISON: Comparison is made with prior examination dated 01/28/2021. FINDINGS: EKG electrodes are seen. There is evidence of diffuse bilateral airspace disease involving both lungs. This as involved as compared to prior study. There is no demonstrated pleural abnormality. Normal size heart. Normal mediastinum and lorelei. Normal visualized pulmonary arteries. Normal visualized aortic arch and descending thoracic aorta. There are degenerative changes of the visualized thoracic spine. Normal visualized ribs, clavicles, and shoulders. There is no demonstrated abnormality of the visualized soft tissue structures of the upper abdomen. RAD/Chest 1 View (Portable) IMPRESSION: Diffuse bilateral pulmonary airspace disease. This has worsened as compared to prior study. Electronically Signed: Ildefonso Dias MD at 9:42 EDT , Service support ,
[2021-02-02] MEDS: 0.9% Saline Lock 10 ML Syringe IV (06:30)
[2021-02-02] MEDS: Furosemide 40 MG/4 ML Vial IV (06:30)
[2021-02-02] MEDS: dexAMETHasone 2 MG TABLET 6 MG PO (08:22)
[2021-02-02] MEDS: Gabapentin 400 MG Capsule PO ×2 (08:22→16:48)
[2021-02-02] MEDS: buPROPion (XL) 150 MG TABLET.XL PO (08:23)
[2021-02-02] MEDS: guaiFENesin 1,200 MG Tablet 1200 MG PO (08:23)
[2021-02-02] MEDS: FLUoxetine 20 MG Capsule 40 MG PO (08:23)
[2021-02-02] MEDS: Lisinopril 2.5 MG Tablet PO (08:23)
[2021-02-02] MEDS: Enoxaparin 30 MG/0.3 ML Syringe SC ×2 (08:23→20:29)
[2021-02-02] MEDS: Cyanocobalamin 500 MCG Tablet PO (08:24)
[2021-02-02] MEDS: Anastrozole 1 MG TABLET PO (08:24)
[2021-02-02] MEDS: Insulin Lispro 100 UNIT/ML INSULN.PEN SC ×2 (08:24→16:48)
[2021-02-02] MEDS: Insulin Lispro 100 UNIT/ML INSULN.PEN 25 UNIT SC ×3 (08:25→16:50)
[2021-02-02] MEDS: Nystatin Powder 15gm Bottle 1 APPLIC TOPICAL ×2 (08:37→20:29)
[2021-02-02 09:21] LABS: Bedside Glucose 234 mg/dL (70-110)
--- NOTE | 2021-02-02 09:52 | PCM.PN.HOSP ---
Subjective Subjective Patient 100% FiO2, BiPAP. Short of breath. DNR CCA no intubation confirmed with the patient. Objective Data Objective Data Vital Signs: Vital Signs Temp Pulse Resp BP Pulse Ox 97.8 F 86 26 H 130/59 H 90 02/02/21 04:00 02/02/21 09:38 02/02/21 09:38 02/02/21 09:00 02/02/21 09:38 Oxygen Flow Rate (L/min) 1 Oxygen Delivery Method Bi-pap Weight: 190 lb 11.198 oz Body Mass Index (BMI) 35.2 Intake & Output: Intake and Output for Last 24 Hours 01/31/21 02/01/21 02/02/21 23:59 23:59 23:59 Intake Total 1060 / 1060 740 / 740 60 / 60 Output Total 1200 / 1200 1300 / 1300 Balance -140 / -140 -560 / -560 60 / 60 Lab / Micro Data Result Diagrams: 02/01/21 04:20 02/01/21 04:20 Labs: Laboratory Results - last 24 hr 02/01/21 11:39: POC Glucose 123 H 02/01/21 17:08: POC Glucose 293 H 02/01/21 19:37: POC Glucose 412 H 02/02/21 08:24: POC Glucose 234 H Micro: Microbiology 01/28/21 17:00 Blood Culture (Wb) - Anticubital Left Blood Culture - Final No growth in 5 days. 01/28/21 16:55 Blood Culture (Wb) - Left Hand Blood Culture - Final No growth in 5 days. 01/28/21 17:00 Mucosa - Nose SARS-CoV-2 Antigen (Rapid) - Final SARS-CoV-2 (COVID 19) Radiography Diagnostic Testing: Radiology Impression Chest X-Ray 02/02/21 05:49 IMPRESSION: Diffuse bilateral pulmonary airspace disease. This has worsened as compared to prior study. Electronically Signed: Ildefonso Dias MD at 9:42 EDT , Service support , Physical Exam Narrative General: Alert, Oriented x3, Cooperative HEENT: Atraumatic, PERRLA, EOMI, Normocephalic Oral: No Gingival or Mucosal Lesions/ Ulcerations Neck: Supple, No JVD, Negative Carotid Bruits Lungs: Good percent FiO2 BiPAP air entry diminished in bilateral lung bases. Bilateral expiratory crepitation present Cardiovascular: , Normal S1, Normal S2, No murmurs Abdomen: Bowel Sounds Present, Soft, Non Tender, Non-Distended : No renal angle tenderness. No suprapubic tenderness. Extremities: No edema, Capillary Refill Less than 3 Seconds Skin: No rashes, No breakdown Musculoskeletal: No Tenderness to Palpation of Joints or Extremities Neurological: Cranial nerves II-XII grossly intact, DTR 2+/4 and Symmetrical, Neuro grossly intact Psych/Mental Status: Assessment & Plan Assessment/Plan (1) COVID-19: (2) Acute and chronic respiratory failure with hypoxia: PLAN: Patient is a 60-year-old lady admitted with persistent cough. She had received 1 out of 2 Covid vaccine prior to her admission. An assessment of acute hypoxic respiratory failure secondary to SARS-CoV-2 pneumonia made admitted to regular nursing floor for further management 1. Acute hypoxic respiratory failure ?Secondary to SARS-CoV-2 pneumonia. Patient was out of the window for remdesivir she was however started on Decadron in addition to supplemental oxygen which is currently being titrated to keep saturation greater than 90. Oxygen requirement continues to increase currently on BiPAP 100% FiO2. Patient does not want to be intubated on ventilator. 2. Diabetes mellitus type 2 uncontrolled with hyperglycemia ?Patient uncontrolled diabetes attributed to patient receiving concomitant steroid. Insulin dose was adjusted. Patient had hypoglycemic event on 02/01 morning. 3. History of breast CA ?Previous mastectomy currently on anastrozole. 4. Hypertension - Blood pressure controlled, home medications continued with dose adjustment as needed 5. DVT prophylaxis ?SC Lovenox 6. Obesity with BMI of 35.3 ?Weight loss advised Charges/Coding Visit Charges Inpatient E&M: 17374 [facility] Hosp L3
[2021-02-02 11:50] LABS: Bedside Glucose 150 mg/dL (70-110)
--- NOTE | 2021-02-02 13:09 | RAD_ITS ---
STUDY: X-RAY CHEST REASON FOR EXAM: Female, 60 years old. Intubated TECHNIQUE: Single AP portable view of the chest. COMPARISON: Comparison is made with prior study done earlier today. FINDINGS: An endotracheal tube is in situ. The tip is in the proximal portion of the right mainstem bronchus. This should be pulled back approximately 4.3 cm. Stable bilateral diffuse airspace disease. RAD/Chest 1 View (Portable) IMPRESSION: The tip of the endotracheal tube is within the proximal portion of the right mainstem bronchus. This should be pulled back approximately 4.3 cm. Electronically Signed: Ildefonso Dias MD at 14:17 EDT , Service support ,
[2021-02-02] MEDS: Midazolam 2 MG/2 ML Syringe 4 MG IV (13:10)
--- NOTE | 2021-02-02 13:11 | NURSING ---
Patient stated that she was feeling tired and wanted to change her code status from [id number], no intubation to full code. Dr Joaquin notified, came to bedside to confirm with patient, it was then decided to proceed with intubation pt tolerated without complication, intubated by Dr Joaquin with a #7.5 ETT, 24cm at lip.
[2021-02-02] MEDS: Etomidate 20 MG/10 ML Vial IV (13:12)
[2021-02-02] MEDS: Propofol 10MG/Ml 1,000 MG/100 ML Bottle 5.2 MG CONT INF (13:15)
--- NOTE | 2021-02-02 13:20 | RAD_ITS ---
STUDY: X-RAY CHEST REASON FOR EXAM: Female, 60 years old. ETT #2 TECHNIQUE: Single AP portable view of the chest. COMPARISON: Comparison is made with prior study done earlier today at 1:16 PM. FINDINGS: The tip of the endotracheal tube is at 2.5 cm proximal to the sergey. An orogastric tube is seen with the tip in the body of the stomach. Diffuse bilateral airspace disease. This is unchanged. There is no demonstrated pleural abnormality. Normal size heart. Normal mediastinum and lorelei. Normal visualized pulmonary arteries. Normal visualized aortic arch and descending thoracic aorta. Normal visualized thoracic spine. Normal visualized ribs, clavicles, and shoulders. There is no demonstrated abnormality of the visualized soft tissue structures of the upper abdomen. RAD/Chest 1 View (Portable) IMPRESSION: The tip of the endotracheal tube is at 2.5 cm proximal to the sergey. Electronically Signed: Ildefonso Dias MD at 14:16 EDT , Service support ,
[2021-02-02 14:01] LABS: Allen Test Positive; Base Excess 5 mmol/L (-2 to +2); Bicarbonate 30.7 mmol/L (22-26); Blood Gas Specimen Type ART; FI02 100; Mode AC; O2 Delivery Device ET Tube; PEEP 12; PO2 54 mmHG (75-100); RR 16; SITE R Radial; SO2 84 % (95-99); Total Carbon Dioxide 33 mmol/L; Vt 350; pCO2 60.9 mmHg (35-45); pH 7.31 (7.35-7.45)
[2021-02-02 15:35] LABS: CPK Total, Creatine Kinase 32 U/L (26-192); Triglycerides 163 mg/dL
[2021-02-02 16:45] LABS: Bedside Glucose 154 mg/dL (70-110)
[2021-02-02] MEDS: Propofol 10MG/Ml 1,000 MG/100 ML Bottle 7.8 MG CONT INF (17:02)
[2021-02-02] MEDS: Atorvastatin Calcium 20 MG Tablet GT (20:28)
[2021-02-02] MEDS: Gabapentin 400 MG Capsule GT ×2 (20:29→20:30)
[2021-02-02] MEDS: Chlorhexidine 15 ML PO (20:59)
[2021-02-02] MEDS: CHLORHEXIDINE GLUC 2% CLOTH 1 EACH TOWELETTE TOPICAL (21:00)
[2021-02-02] MEDS: TITRATION PARAMETER CHANGE 1 EACH IV (21:35)
[2021-02-03] VITALS (46 sets, daily range): BP systolic 89–141; BP diastolic 47–64; PULSE 73–92; RESP 12–26; TEMP 37.5–38.6; O2SAT 86–97
[2021-02-03 00:51] LABS: Bedside Glucose 117 mg/dL (70-110)
[2021-02-03] MEDS: Propofol 10MG/Ml 1,000 MG/100 ML Bottle 7.8 MG CONT INF ×2 (02:00→09:14)
[2021-02-03 04:28] LABS: Absolute Lymphocyte Count 1.29 X10^3/uL (0.83-4.51); Absolute Neutrophil Count 11.4 X10^3/uL (2.0-7.7); Basophil# 0.07 X10^3/uL; Basophil% 0.5 % (0-1); Eosinophil# 0.01 X10^3/uL; Eosinophils% 0.1 % (0-5); Hematocrit 37.7 % (37-47); Lymphocyte # 1.29 X10^3/ul (0.83-4.51); Lymphocyte % 9.4 % (19-41); Mean Corp Hgb Conc 31.8 g/dL (32-36); Mean Corpuscular Volume 88.1 fL (81-99); Mean Platelet Vol. 9.9 fl (6.2-12.0); Monocyte# 0.54 X10^3/uL; Monocyte% 3.9 % (0-10); NRBC Flagged by Analyzer 0 % (0-5); Neutrophil # 11.38 X10^3/uL (2.7-7.7); Neutrophil % 83.2 % (47-70); Platelet Count 274 K/mm3 (150-450); RBC Distribution Width CV 13.6 % (11.6-14.6); RBC Distribution Width SD 43.8 fl (35.1-43.9); Red Blood Count 4.28 M/mm3 (4.2-5.4); White Blood Count 13.7 K/mm3 (4.4-11.0)
[2021-02-03 05:57] LABS: Anion Gap 7 (5-15); BUN 43 mg/dL (7-18); BUN/Creat Ratio 51.6 RATIO (10-20); Calcium,Total 8.1 mg/dL (8.5-10.1); Chloride 103 mmol/L (98-107); Creatinine, Serum 0.83 mg/dL (0.55-1.02); EST Glomerular Filtration Rate 74 mL/min (>60); Est Glom Filt Rate - Afr Amer 90 mL/min (>60); Estimated Creatinine Clearance 55.07 ml/min; Glucose 201 mg/dL (74-106); Potassium 4.7 mmol/L (3.5-5.1); Sodium Level 137 mmol/L (136-145)
--- NOTE | 2021-02-03 06:06 | PN.CC_ITS ---
Assessment & Plan Assessment/Plan (1) Acute and chronic respiratory failure with hypoxia: (2) COVID-19: PLAN: RECOMMENDATIONS: 1. Continue to wean FiO2 and PEEP to maintain oxygen saturations at or above 90%. 2. Attempt to maintain plateau pressures less than 30. 3. Continue Levophed to maintain a mean arterial pressure at or above 65 mmHg. 4. Start empiric antimicrobials, given further clinical decompensation. 5. Administer IV Lasix today. 6. Okay to start tube feeds today. 7. Continue Decadron to complete 10-day treatment course. 8. Continue appropriate ICU prophylaxis. IMPRESSIONS: 1. Acute hypoxemic respiratory failure secondary to COVID-19 pneumonia The patient presented to the hospital with approximately 2 weeks of symptoms. She was outside of the window to receive remdesivir. Although the patient was maintained on noninvasive positive pressure ventilatory support initially, she continued to decompensate from a respiratory perspective, eventually requiring intubation on February 02. She will be continued on assist control mode of mechanical ventilation with FiO2 and PEEP weaned to maintain saturations at or above 90%. Goal to maintain plateau pressures less than 30. We will start empiric antimicrobials as well. Decadron will be continued to complete treatment course. Tube feeds will be initiated today. Twice daily Lovenox will be continued. IV Lasix will be administered today as well. 2. Diabetes mellitus/history of breast CA/hypertension/obesity/hyperlipidemia Complicates care, management, recovery and prognosis. Continue Lantus and sliding scale insulin coverage. Mobilize patient as tolerated. TIME: 35 minutes of critical care time, independent of procedures, was spent addressing the patient's acute hypoxemic respiratory failure secondary to COVID- 19 pneumonia, review of all data and collaboration with the care team. ([id number]) Subjective Subjective The patient was seen and examined at the bedside this morning. Events from the last 24 hours have been reviewed. The patient was intubated yesterday afternoon due to progressive respiratory decline. Although the patient was initially noted to be DNR CCA without intubation, she subsequently changed her CODE STATUS to full code. The patient currently has a low-grade fever. She remains on low- dose Levophed at 5 mcg/min to maintain hemodynamic stability. The patient remains on ACVC+ mode of mechanical ventilation with an FiO2 requirement of 100% and PEEP of 12. She remains sedated on propofol and fentanyl. Despite this, the patient is alert and able to follow simple commands. She is currently documented to be overall net -3.1 L for the hospital admission. White count is elevated at 14,000. Creatinine remains stable at 0.83. Objective Data Objective Data The patient's most recent lab work, culture data and imaging studies have all been personally reviewed. Rapid coronavirus antigen testing was positive on January 28. Sputum and urine cultures are pending. Vital Signs: Vital Signs Temp Pulse Resp BP Pulse Ox 100.1 F H 85 16 125/54 H 90 02/03/21 05:00 02/03/21 05:00 02/03/21 05:00 02/03/21 05:00 02/03/21 05:00 Oxygen Flow Rate (L/min) 1 Oxygen Delivery Method Mechanical Ventilator Weight: 86 kg Body Mass Index (BMI) 35.2 Intake & Output: Intake and Output for Last 24 Hours 02/01/21 02/02/21 02/03/21 23:59 23:59 23:59 Intake Total 740 / 740 392.83 / 413.68 155.90 / 155.90 Output Total 1300 / 1300 1275 / 1275 30 / 30 Balance -560 / -560 -882.17 / -861.32 125.90 / 125.90 Lab / Micro Data Attestation: I reviewed the patient's lab results. Result Diagrams: 02/03/21 04:05 02/03/21 04:05 Labs: Laboratory Results - last 24 hr 02/02/21 08:24: POC Glucose 234 H 02/02/21 11:25: POC Glucose 150 H 02/02/21 14:50: Total Creatine Kinase 32, Triglycerides 163 02/02/21 16:36: POC Glucose 154 H 02/02/21 20:42: POC Glucose 117 H 02/03/21 04:05: WBC 13.7 H, RBC 4.28, Hgb 12.0, Hct 37.7, MCV 88.1, MCH 28.0, MCHC 31.8 L, RDW Std Deviation 43.8, RDW Coeff of Jay 13.6, Plt Count 274, MPV 9.9, Immature Gran % (Auto) 2.900 H, Neut % (Auto) 83.2 H, Lymph % (Auto) 9.4 L, [place] % (Auto) 3.9, Eos % (Auto) 0.1, Baso % (Auto) 0.5, Absolute Neuts (auto) 11.4 H, Absolute Lymphs (auto) 1.29, Nucleated RBC % 0 02/03/21 04:05: Sodium 137, Potassium 4.7, Chloride 103, Carbon Dioxide 27.0, Anion Gap 7, BUN 43 H, Creatinine 0.83, Estim Creat Clear Calc 55.07, Est GFR (MDRD) Af Amer 90, Est GFR (MDRD) Non-Af 74, BUN/Creatinine Ratio 51.6 H, Glucose 201 H, Calcium 8.1 L Micro: Microbiology 01/28/21 17:00 Blood Culture (Wb) - Anticubital Left Blood Culture - Final No growth in 5 days. 01/28/21 16:55 Blood Culture (Wb) - Left Hand Blood Culture - Final No growth in 5 days. 01/28/21 17:00 Mucosa - Nose SARS-CoV-2 Antigen (Rapid) - Final SARS-CoV-2 (COVID 19) ABG Data ABG results: ABG 02/02/21 13:54 Specimen Type ART Sample Site R Radial pH 7.31 L Bicarbonate Actual 30.7 H Total CO2 33 Base Excess 5 H O2 Saturation 84 L O2 % 100 ABG pCO2 60.9 H ABG pO2 54 L Roman Test Positive Respiration Rate 16 O2 Delivery Device ET Tube Vent Mode AC Tidal Volume 350 POC PEEP 12 Radiography Diagnostic Testing: Radiology Impression Chest X-Ray 02/02/21 05:49 IMPRESSION: Diffuse bilateral pulmonary airspace disease. This has worsened as compared to prior study. Electronically Signed: Ildefonso Dias MD at 9:42 EDT , Service support , Chest X-Ray 02/02/21 13:09 IMPRESSION: The tip of the endotracheal tube is within the proximal portion of the right mainstem bronchus. This should be pulled back approximately 4.3 cm. Electronically Signed: Idlefonso Dias MD at 14:17 EDT , Service support , Chest X-Ray 02/02/21 13:20 IMPRESSION: The tip of the endotracheal tube is at 2.5 cm proximal to the sergey. Electronically Signed: Ildefonso Dias MD at 14:16 EDT , Service support , Physical Exam Const no apparent distress General Appearance: comfortable, intubated and patient mechanically ventilated Nutritional Appearance: obese HEENT normocephalic and head/scalp atraumatic Mouth: endotracheal tube in place and OG tube in place Eyes PERRL, EOMs intact bilaterally and conjunctivae normal Neck supple General: trachea midline Resp Auscultation: diminished lung sounds; Negative for rales, rhonchi or wheezes Cardio regular rate and regular rhythm GI normal to inspection, nondistended, normoactive bowel sounds Extremity no clubbing, cyanosis or edema Skin no rashes or lesions noted Neuro no focal motor deficits Sensorium / Orientation: sedated on vent Charges/Coding Procedures Hospitalists Procedures: [id number] Critial Care 1st Hr
--- NOTE | 2021-02-03 08:30 | RAD_ITS ---
STUDY: X-RAY CHEST REASON FOR EXAM: Female, 60 years old. Central line placement TECHNIQUE: Single AP portable view of the chest. COMPARISON: Comparison is made with prior study dated 02/02/2021. FINDINGS: An endotracheal tube is seen. The tip is at 2.6 cm proximal to the sergey. A right-sided central venous catheter has been placed with the tip at the junction of the superior vena cava and right atrium. An orogastric tube is seen with the tip in the body of the stomach. Persistent bilateral airspace disease. There has been a mild improvement bilaterally. There is no demonstrated pleural abnormality. Normal size heart. Normal mediastinum and lorelei. Normal visualized pulmonary arteries. Normal visualized aortic arch and descending thoracic aorta. Normal visualized thoracic spine. Normal visualized ribs, clavicles, and shoulders. There is no demonstrated abnormality of the visualized soft tissue structures of the upper abdomen. RAD/Chest 1 View (Portable) IMPRESSION: A right-sided central venous catheter has been placed. The tip is at the junction of the superior vena cava and right atrium. Persistent bilateral airspace disease although there has been mild improvement as compared to prior study. Electronically Signed: Ildefonso Dias MD at 9:10 EDT , Service support ,
[2021-02-03] MEDS: Chlorhexidine 15 ML PO ×2 (08:37→21:04)
--- NOTE | 2021-02-03 08:45 | PN.HOSP_ITS ---
Subjective Subjective The patient was intubated yesterday afternoon due to worsening respiratory function. She changed CODE STATUS to full code on low-dose Levophed. Patient had right-sided IJ CVC catheter. Objective Data Objective Data Vital Signs: Vital Signs Temp Pulse Resp BP Pulse Ox 100.1 F H 81 22 H 122/52 H 92 02/03/21 07:00 02/03/21 07:15 02/03/21 07:15 02/03/21 07:00 02/03/21 07:15 Oxygen Flow Rate (L/min) 1 Oxygen Delivery Method Mechanical Ventilator Weight: 189 lb 9.561 oz Body Mass Index (BMI) 35.2 Intake & Output: Intake and Output for Last 24 Hours 02/01/21 02/02/21 02/03/21 23:59 23:59 23:59 Intake Total 740 / 740 392.83 / 413.68 174.70 / 174.70 Output Total 1300 / 1300 1275 / 1275 130 / 130 Balance -560 / -560 -882.17 / -861.32 44.70 / 44.70 Lab / Micro Data Result Diagrams: 02/03/21 04:05 02/03/21 04:05 Labs: Laboratory Results - last 24 hr 02/02/21 08:24: POC Glucose 234 H 02/02/21 11:25: POC Glucose 150 H 02/02/21 14:50: Total Creatine Kinase 32, Triglycerides 163 02/02/21 16:36: POC Glucose 154 H 02/02/21 20:42: POC Glucose 117 H 02/03/21 04:05: WBC 13.7 H, RBC 4.28, Hgb 12.0, Hct 37.7, MCV 88.1, MCH 28.0, MCHC 31.8 L, RDW Std Deviation 43.8, RDW Coeff of Jay 13.6, Plt Count 274, MPV 9.9, Immature Gran % (Auto) 2.900 H, Neut % (Auto) 83.2 H, Lymph % (Auto) 9.4 L, [place] % (Auto) 3.9, Eos % (Auto) 0.1, Baso % (Auto) 0.5, Absolute Neuts (auto) 11.4 H, Absolute Lymphs (auto) 1.29, Nucleated RBC % 0 02/03/21 04:05: Sodium 137, Potassium 4.7, Chloride 103, Carbon Dioxide 27.0, Anion Gap 7, BUN 43 H, Creatinine 0.83, Estim Creat Clear Calc 55.07, Est GFR (MDRD) Af Amer 90, Est GFR (MDRD) Non-Af 74, BUN/Creatinine Ratio 51.6 H, Glucose 201 H, Calcium 8.1 L Micro: Microbiology 01/28/21 17:00 Blood Culture (Wb) - Anticubital Left Blood Culture - Final No growth in 5 days. 01/28/21 16:55 Blood Culture (Wb) - Left Hand Blood Culture - Final No growth in 5 days. 01/28/21 17:00 Mucosa - Nose SARS-CoV-2 Antigen (Rapid) - Final SARS-CoV-2 (COVID 19) ABG Data ABG results: ABG 02/02/21 13:54 Specimen Type ART Sample Site R Radial pH 7.31 L Bicarbonate Actual 30.7 H Total CO2 33 Base Excess 5 H O2 Saturation 84 L O2 % 100 ABG pCO2 60.9 H ABG pO2 54 L Roman Test Positive Respiration Rate 16 O2 Delivery Device ET Tube Vent Mode AC Tidal Volume 350 POC PEEP 12 Radiography Diagnostic Testing: Radiology Impression Chest X-Ray 02/02/21 05:49 IMPRESSION: Diffuse bilateral pulmonary airspace disease. This has worsened as compared to prior study. Electronically Signed: Ildefonso Dias MD at 9:42 EDT , Service support , Chest X-Ray 02/02/21 13:09 IMPRESSION: The tip of the endotracheal tube is within the proximal portion of the right mainstem bronchus. This should be pulled back approximately 4.3 cm. Electronically Signed: Ildefonso Dias MD at 14:17 EDT , Service support , Chest X-Ray 02/02/21 13:20 IMPRESSION: The tip of the endotracheal tube is at 2.5 cm proximal to the sergey. Electronically Signed: Ildefonso Dias MD at 14:16 EDT , Service support , Physical Exam Narrative General: Alert, Oriented x3, Cooperative HEENT: Atraumatic, PERRLA, EOMI, Normocephalic Oral: ET and OG tube. Neck: Supple, No JVD, Negative Carotid Bruits Lungs: On mechanical ventilator. Cardiovascular: , Normal S1, Normal S2, No murmurs Abdomen: Bowel Sounds t, Soft, Non Tender, Non-Distended : Decreased urine output, dark color. No renal angle tenderness. No suprapubic tenderness. Extremities: No edema, Capillary Refill Less than 3 Seconds Skin: No rashes, No breakdown Musculoskeletal: No Tenderness to Palpation of Joints or Extremities Neurological: Cranial nerves II-XII grossly intact, DTR 2+/4 and Symmetrical, Neuro grossly intact Psych/Mental Status: Flat affect. Assessment & Plan Assessment/Plan (1) COVID-19: (2) Acute and chronic respiratory failure with hypoxia: PLAN: Patient is a 60-year-old lady admitted with persistent cough. She had received 1 out of 2 Covid vaccine prior to her admission. An assessment of acute hypoxic respiratory failure secondary to SARS-CoV-2 pneumonia made admitted to regular nursing floor for further management 1. Acute hypoxic respiratory failure ?Secondary to SARS-CoV-2 pneumonia. Patient was out of the window for rem desivir she was however started on Decadron in addition to supplemental oxygen which is currently being titrated to keep saturation greater than 90. Oxygen requirement continues to increase currently on BiPAP 100% FiO2. 02/03: Patient intubated on 100% FiO2. PEEP 12. Repair as per test engineering manager. Septic shock secondary to bilateral COVID-19 pneumonia: Currently on Levophed drip. 2. Diabetes mellitus type 2 uncontrolled with hyperglycemia ?Patient uncontrolled diabetes attributed to patient receiving concomitant steroid. Insulin dose was adjusted. Patient had hypoglycemic event on 02/01 mor misty. 3. History of breast CA ?Previous mastectomy currently on anastrozole. 4. Currently hypotensive: Levophed drip 5. DVT prophylaxis ?SC Lovenox 6. Obesity with BMI of 35.3 Charges/Coding Visit Charges Inpatient E&M: 18580 Subs Hosp L3
--- NOTE | 2021-02-03 08:50 | PCM.OP.BLANK ---
Operative Report Date of Procedure: 02/03/21 Central line placement procedure note Indication: IV access/hemodynamic instability/vasoactive medications Procedure: A time-out was completed to verify correct patient, indication, medication allergies, procedure, coagulation studies, informed consent signed, and equipment needed. The patient was placed in the supine position for a central line placement to the rt IJ vein. The patients rt neck was prepped using chlorhexidine and a full body sterile drape was applied. 1% lidocaine was used to anesthetize the surrounding skin. A 7fr 16 cm blue guard triple lumen catheter introduced into the internal jugular vein using the modified Seldinger technique with the assistance of ultrasound. The catheter was threaded smoothly over the guidewire, the guidewire was removed easily, nonpulsatile blood returned. All ports were aspirated of air and flushed with sterile saline. The catheter was sutured in place and covered with an occlusive dressing impregnated with chlorhexidine. Post-procedure: The patient tolerated the procedure well. Vital signs remained stable. EBL 3 cc. No complications. Chest X Ray ordered to confirm tip placement and the absence of pneumothorax. Procedures Hospitalists Procedures: 86073 Insert Non-tunnel CV Cath
[2021-02-03] MEDS: Enoxaparin 30 MG/0.3 ML Syringe SC ×2 (11:14→22:25)
[2021-02-03] MEDS: Anastrozole 1 MG TABLET PO (11:15)
[2021-02-03] MEDS: dexAMETHasone 2 MG TABLET 6 MG GT (11:16)
[2021-02-03] MEDS: FLUoxetine 20 MG Capsule 40 MG GT (11:16)
[2021-02-03] MEDS: guaiFENesin 1,200 MG Tablet 1200 MG PO ×2 (11:17→20:59)
[2021-02-03] MEDS: Gabapentin 400 MG Capsule GT ×3 (11:17→20:59)
[2021-02-03] MEDS: Cyanocobalamin 500 MCG Tablet GT (11:17)
[2021-02-03] MEDS: Furosemide 40 MG/4 ML Vial IV (11:21)
[2021-02-03 11:27] LABS: International Normalized Ratio 1.3; Prothrombin Time (Protime)PT. 15.8 SECONDS (11.7-14.9)
[2021-02-03] MEDS: Insulin Lispro 100 UNIT/ML INSULN.PEN SC ×3 (11:27→21:03)
[2021-02-03 11:45] LABS: Bedside Glucose 214 mg/dL (70-110)
[2021-02-03 11:45] LABS: Bedside Glucose 212 mg/dL (70-110)
[2021-02-03] MEDS: Famotidine 200 MG/20 ML MDV 20 MG in 0.9% Normal Saline (Pres. free 8 ML 300 MG IV ×2 (12:30→20:59)
[2021-02-03] MEDS: Vital AF 1.2 Cal Liquid 1,000 ML 25 ML GT (12:34)
[2021-02-03] MEDS: Nystatin Powder 15gm Bottle 1 APPLIC TOPICAL ×2 (12:41→21:15)
[2021-02-03] MEDS: Acetaminophen 650 MG/20 ML UDC GT (13:55)
[2021-02-03] MEDS: Insulin Lispro 100 UNIT/ML INSULN.PEN 25 UNIT SC (17:14)
[2021-02-03 17:21] LABS: Bedside Glucose 405 mg/dL (70-110)
[2021-02-03] MEDS: Propofol 10MG/Ml 1,000 MG/100 ML Bottle 10.4 MG CONT INF (19:00)
[2021-02-03] MEDS: Atorvastatin Calcium 20 MG Tablet GT (20:59)
[2021-02-03 21:11] LABS: Bedside Glucose 355 mg/dL (70-110)
[2021-02-04] VITALS (49 sets, daily range): BP systolic 91–134; BP diastolic 48–65; PULSE 58–81; RESP 12–25; TEMP 36.5–38.5; O2SAT 90–97
[2021-02-04] MEDS: Propofol 10MG/Ml 1,000 MG/100 ML Bottle 10.4 MG CONT INF ×3 (04:33→23:00)
--- NOTE | 2021-02-04 05:39 | PN.CC_ITS ---
Assessment & Plan Assessment/Plan (1) Acute and chronic respiratory failure with hypoxia: (2) COVID-19: PLAN: RECOMMENDATIONS: 1. Continue to wean FiO2 and PEEP to maintain oxygen saturations at or above 90%. 2. Attempt to maintain plateau pressures less than 30. 3. Continue Levophed to maintain a mean arterial pressure at or above 65 mmHg. 4. Continue empiric antimicrobials. 5. Administer IV Lasix today. 6. Continue tube feeds as tolerated. 7. Continue Decadron to complete 10-day treatment course. 8. Continue appropriate ICU prophylaxis. IMPRESSIONS: 1. Acute hypoxemic respiratory failure secondary to COVID-19 pneumonia The patient presented to the hospital with approximately 2 weeks of symptoms. She was outside of the window to receive remdesivir. Although the patient was maintained on noninvasive positive pressure ventilatory support initially, she continued to decompensate from a respiratory perspective, eventually requiring intubation on February 02. She will be continued on assist control mode of mechanical ventilation with FiO2 and PEEP weaned to maintain saturations at or above 90%. Goal to maintain plateau pressures less than 30. Decadron will be continued to complete treatment course. Tube feeds will be initiated today. Twice daily Lovenox will be continued. IV Lasix will be administered today as well. 2. E. coli cystitis Continue antimicrobials as ordered 3. Diabetes mellitus/history of breast CA/hypertension/obesity/hyperlipidemia Complicates care, management, recovery and prognosis. Continue Lantus and sliding scale insulin coverage. Mobilize patient as tolerated. TIME: 35 minutes of critical care time, independent of procedures, was spent addressing the patient's acute hypoxemic respiratory failure secondary to COVID- 19 pneumonia, E. coli cystitis, review of all data and collaboration with the care team. ([id number]) Subjective Subjective The patient was seen and examined at the bedside this morning. Events from the last 24 hours have been reviewed. The patient is currently afebrile, hemodynamically stable and maintaining appropriate oxygen saturations on assist control mode of mechanical ventilation with an FiO2 requirement of 80% and PEEP of 14. The patient is currently documented to be overall net -3.4 L for the hospital admission. She is currently tolerating tube feeds. The patient remains on Levophed at 5 mcg/min to maintain hemodynamic stability. She remains sedated on propofol and fentanyl. Objective Data Objective Data The patient's most recent lab work, culture data and imaging studies have all been personally reviewed. Rapid coronavirus antigen testing was positive on January 28. Sputum culture appears to be normal respiratory kell. Urine culture was positive for pansensitive E. coli. Vital Signs: Vital Signs Temp Pulse Resp BP Pulse Ox 98.4 F 81 13 129/63 H 95 02/04/21 04:00 02/04/21 04:00 02/04/21 04:00 02/04/21 04:00 02/04/21 04:00 Oxygen Flow Rate (L/min) 1 Oxygen Delivery Method Mechanical Ventilator Weight: 87 kg Body Mass Index (BMI) 35.2 Intake & Output: Intake and Output for Last 24 Hours 02/02/21 02/03/21 02/04/21 23:59 23:59 23:59 Intake Total 392.83 / 413.68 1115.92 / 1195.72 629.39 / 629.39 Output Total 1275 / 1275 1230 / 1230 650 / 650 Balance -882.17 / -861.32 -114.08 / -34.28 -20.61 / -20.61 Lab / Micro Data Attestation: I reviewed the patient's lab results. Result Diagrams: 02/04/21 04:45 02/04/21 04:45 Labs: Laboratory Results - last 24 hr 02/03/21 04:05: Sodium 137, Potassium 4.7, Chloride 103, Carbon Dioxide 27.0, Anion Gap 7, BUN 43 H, Creatinine 0.83, Estim Creat Clear Calc 55.07, Est GFR (MDRD) Af Amer 90, Est GFR (MDRD) Non-Af 74, BUN/Creatinine Ratio 51.6 H, Glucose 201 H, Calcium 8.1 L 02/03/21 11:00: PT 15.8 H, INR 1.3 02/03/21 11:00: POC Glucose 212 H 02/03/21 11:25: POC Glucose 214 H 02/03/21 17:05: POC Glucose 405 H 02/03/21 20:44: POC Glucose 355 H Micro: Microbiology 02/02/21 13:20 Sputum, Induced/Lukens Gram Stain - Final 02/02/21 13:20 Sputum, Induced/Lukens Respiratory Culture - Preliminary Appears to be normal respiratory kell. Further studies to follow. 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 01/28/21 16:55 Blood Culture (Wb) - Left Hand Blood Culture - Final No growth in 5 days. 01/28/21 17:00 Mucosa - Nose SARS-CoV-2 Antigen (Rapid) - Final SARS-CoV-2 (COVID 19) Radiography Diagnostic Testing: Radiology Impression Chest X-Ray 02/03/21 08:30 IMPRESSION: A right-sided central venous catheter has been placed. The tip is at the junction of the superior vena cava and right atrium. Persistent bilateral airspace disease although there has been mild improvement as compared to prior study. Electronically Signed: Ildefonso Dias MD at 9:10 EDT , Service support , Physical Exam Const no apparent distress General Appearance: comfortable, intubated and patient mechanically ventilated Nutritional Appearance: obese HEENT normocephalic and head/scalp atraumatic Mouth: endotracheal tube in place and OG tube in place Eyes PERRL, EOMs intact bilaterally and conjunctivae normal Neck supple General: trachea midline and CVC in place Resp Auscultation: diminished lung sounds; Negative for rales, rhonchi or wheezes Cardio regular rate and regular rhythm GI normal to inspection, nondistended, normoactive bowel sounds Extremity no clubbing, cyanosis or edema Skin no rashes or lesions noted Neuro no focal motor deficits Sensorium / Orientation: sedated on vent Charges/Coding Procedures Hospitalists Procedures: [id number] Critial Care 1st Hr
[2021-02-04 05:55] LABS: Absolute Lymphocyte Count 0.82 X10^3/uL (0.83-4.51); Absolute Neutrophil Count 9.9 X10^3/uL (2.0-7.7); Basophil# 0.04 X10^3/uL; Basophil% 0.3 % (0-1); Eosinophil# 0.01 X10^3/uL; Eosinophils% 0.1 % (0-5); Hematocrit 36.1 % (37-47); Hemoglobin 11.4 g/dL (12.0-15.0); Lymphocyte # 0.82 X10^3/ul (0.83-4.51); Lymphocyte % 7.2 % (19-41); Mean Corp Hgb Conc 31.6 g/dL (32-36); Mean Corpuscular Hgb 27.9 pg (27.0-32.0); Mean Corpuscular Volume 88.3 fL (81-99); Mean Platelet Vol. 10.2 fl (6.2-12.0); Monocyte% 3.5 % (0-10); NRBC Flagged by Analyzer 0 % (0-5); Neutrophil % 86.6 % (47-70); Platelet Count 260 K/mm3 (150-450); RBC Distribution Width CV 13.4 % (11.6-14.6); RBC Distribution Width SD 43.6 fl (35.1-43.9); Red Blood Count 4.09 M/mm3 (4.2-5.4); White Blood Count 11.4 K/mm3 (4.4-11.0)
[2021-02-04 06:12] LABS: Anion Gap 5 (5-15); BUN 39 mg/dL (7-18); BUN/Creat Ratio 53.6 RATIO (10-20); Calcium,Total 7.9 mg/dL (8.5-10.1); Chloride 103 mmol/L (98-107); Creatinine, Serum 0.73 mg/dL (0.55-1.02); EST Glomerular Filtration Rate 87 mL/min (>60); Est Glom Filt Rate - Afr Amer 105 mL/min (>60); Estimated Creatinine Clearance 62.61 ml/min; Glucose 363 mg/dL (74-106); Potassium 4.7 mmol/L (3.5-5.1); Sodium Level 139 mmol/L (136-145)
[2021-02-04] MEDS: TITRATION PARAMETER CHANGE 1 EACH IV (07:12)
--- NOTE | 2021-02-04 08:48 | PN.HOSP_ITS ---
Subjective Subjective Patient is sedated on fentanyl and Levophed drip. On norepinephrine drip. On IV antibiotic Zosyn. On AC mode of ventilator, 80% FiO2, PEEP 14 Objective Data Objective Data Vital Signs: Vital Signs Temp Pulse Resp BP Pulse Ox 98.9 F 70 16 113/53 L 94 02/04/21 07:00 02/04/21 07:00 02/04/21 07:00 02/04/21 07:00 02/04/21 07:00 Oxygen Flow Rate (L/min) 1 Oxygen Delivery Method Mechanical Ventilator Weight: 191 lb 12.835 oz Body Mass Index (BMI) 35.2 Intake & Output: Intake and Output for Last 24 Hours 02/02/21 02/03/21 02/04/21 23:59 23:59 23:59 Intake Total 392.83 / 413.68 1115.92 / 1195.72 723.02 / 723.02 Output Total 1275 / 1275 1230 / 1230 650 / 650 Balance -882.17 / -861.32 -114.08 / -34.28 73.02 / 73.02 Lab / Micro Data Result Diagrams: 02/04/21 04:45 02/04/21 04:45 Labs: Laboratory Results - last 24 hr 02/03/21 11:00: PT 15.8 H, INR 1.3 02/03/21 11:00: POC Glucose 212 H 02/03/21 11:25: POC Glucose 214 H 02/03/21 17:05: POC Glucose 405 H 02/03/21 20:44: POC Glucose 355 H 02/04/21 04:45: WBC 11.4 H, RBC 4.09 L, Hgb 11.4 L, Hct 36.1 L, MCV 88.3, MCH 27.9, MCHC 31.6 L, RDW Std Deviation 43.6, RDW Coeff of Jay 13.4, Plt Count 260, MPV 10.2, Immature Gran % (Auto) 2.300 H, Neut % (Auto) 86.6 H, Lymph % (Auto) 7.2 L, [place] % (Auto) 3.5, Eos % (Auto) 0.1, Baso % (Auto) 0.3, Absolute Neuts (auto) 9.9 H, Absolute Lymphs (auto) 0.82 L, Nucleated RBC % 0 08/28/21 04:45: Sodium 139, Potassium 4.7, Chloride 103, Carbon Dioxide 31.0, Anion Gap 5, BUN 39 H, Creatinine 0.73, Estim Creat Clear Calc 62.61, Est GFR (MDRD) Af Amer 105, Est GFR (MDRD) Non-Af 87, BUN/Creatinine Ratio 53.6 H, Glucose 363 H, Calcium 7.9 L Micro: Microbiology 02/02/21 14:10 Urine Catheter - Nichole Urine Culture - Final Escherichia coli 02/02/21 13:20 Sputum, Induced/Lukens Gram Stain - Final 02/02/21 13:20 Sputum, Induced/Lukens Respiratory Culture - Preliminary Appears to be normal respiratory kell. Further studies to follow. 01/28/21 17:00 Blood Culture (Wb) - Anticubital Left Blood Culture - Final No growth in 5 days. 01/28/21 16:55 Blood Culture (Wb) - Left Hand Blood Culture - Final No growth in 5 days. 01/28/21 17:00 Mucosa - Nose SARS-CoV-2 Antigen (Rapid) - Final SARS-CoV-2 (COVID 19) Radiography Diagnostic Testing: Radiology Impression Chest X-Ray 02/03/21 08:30 IMPRESSION: A right-sided central venous catheter has been placed. The tip is at the junction of the superior vena cava and right atrium. Persistent bilateral airspace disease although there has been mild improvement as compared to prior study. Electronically Signed: Ildefonso Dias MD at 9:10 EDT , Service support , Physical Exam Narrative General: Sedated. HEENT: Atraumatic, PERRLA, EOMI, Normocephalic Oral: ET and OG tube. Neck: Supple, No JVD, Negative Carotid Bruits Lungs: On mechanical ventilator. Cardiovascular: , Normal S1, Normal S2, No murmurs Abdomen: Bowel Sounds t, Soft, Non Tender, Non-Distended : UOP: 1200 mL daily. No renal angle tenderness. No suprapubic tenderness. Extremities: No edema, Capillary Refill Less than 3 Seconds Skin: No rashes, No breakdown Musculoskeletal: No Tenderness to Palpation of Joints or Extremities Neurological: Cranial nerves II-XII grossly intact, sedated Psych/Mental Status: Sedated Assessment & Plan Assessment/Plan (1) COVID-19: (2) Acute and chronic respiratory failure with hypoxia: PLAN: Patient is a 60-year-old lady admitted with persistent cough. She had received 1 out of 2 Covid vaccine prior to her admission. An assessment of acute hypoxic respiratory failure secondary to SARS-CoV-2 pneumonia made admitted to regular nursing floor for further management 1. Acute hypoxic respiratory failure ?Secondary to SARS-CoV-2 pneumonia. Patient was out of the window for remdesivir she was however started on Decadron in addition to supplemental oxygen which is currently being titrated to keep saturation greater than 90. Oxygen requirement continues to increase currently on BiPAP 100% FiO2. 02/03: Patient intubated on 100% FiO2. PEEP 12. Repair as per field marketer. Septic shock secondary to bilateral COVID-19 pneumonia: Currently on Levophed drip. 02/04: Patient is spiked fever on 02/03 T-max 101.2 Fahrenheit. On IV Zosyn. Lower respiratory tract infection, sputum culture shows 2+ gram-positive cocci 2. Diabetes mellitus type 2 uncontrolled with hyperglycemia ?Patient uncontrolled diabetes attributed to patient receiving concomitant kit roid. Insulin dose was adjusted. Patient had hypoglycemic event on 02/01 morning. 3. History of breast CA ?Previous mastectomy currently on anastrozole. 4. Currently hypotensive: Levophed drip 5. DVT prophylaxis ?SC Lovenox 6. Obesity with BMI of 35.3 CODE STATUS: Full Charges/Coding Visit Charges Inpatient E&M: 68975 Subs Hosp L3
[2021-02-04] MEDS: Enoxaparin 30 MG/0.3 ML Syringe SC ×2 (09:00→20:30)
[2021-02-04] MEDS: Anastrozole 1 MG TABLET PO (09:01)
[2021-02-04] MEDS: Ibuprofen 200 MG Tablet GT ×2 (09:01→20:31)
[2021-02-04] MEDS: dexAMETHasone 2 MG TABLET 6 MG GT (09:02)
[2021-02-04] MEDS: Furosemide 40 MG/4 ML Vial IV (09:02)
[2021-02-04] MEDS: Gabapentin 400 MG Capsule GT ×3 (09:02→20:32)
[2021-02-04] MEDS: Cyanocobalamin 500 MCG Tablet GT (09:02)
[2021-02-04] MEDS: FLUoxetine 20 MG Capsule 40 MG GT (09:02)
[2021-02-04] MEDS: Insulin Lispro 100 UNIT/ML INSULN.PEN 25 UNIT SC ×3 (09:03→17:10)
[2021-02-04] MEDS: Insulin Lispro 100 UNIT/ML INSULN.PEN SC ×4 (09:03→22:58)
[2021-02-04] MEDS: Nystatin Powder 15gm Bottle 1 APPLIC TOPICAL ×2 (09:04→23:00)
[2021-02-04] MEDS: guaiFENesin 1,200 MG Tablet 1200 MG PO (09:04)
[2021-02-04] MEDS: 0.9% Saline Lock 10 ML Syringe IV (09:05)
[2021-02-04] MEDS: Chlorhexidine 15 ML PO ×2 (09:05→20:32)
[2021-02-04] MEDS: CHLORHEXIDINE GLUC 2% CLOTH 1 EACH TOWELETTE TOPICAL (09:05)
[2021-02-04 09:41] LABS: Bedside Glucose 367 mg/dL (70-110)
[2021-02-04] MEDS: Famotidine 200 MG/20 ML MDV 20 MG in 0.9% Normal Saline (Pres. free 8 ML 300 MG IV ×2 (11:52→20:30)
[2021-02-04 12:05] LABS: Bedside Glucose 335 mg/dL (70-110)
[2021-02-04] MEDS: Acetaminophen 650 MG/20 ML UDC GT (13:55)
[2021-02-04 17:50] LABS: Bedside Glucose 275 mg/dL (70-110)
[2021-02-04] MEDS: Vital AF 1.2 Cal Liquid 1,000 ML 60 ML GT (20:24)
[2021-02-04] MEDS: guaiFENesin 10 ML UDC (200MG/10ML) GT (20:30)
[2021-02-04] MEDS: Ondansetron 4 MG/2 ML Vial IV (20:32)
[2021-02-04] MEDS: Atorvastatin Calcium 20 MG Tablet GT (20:32)
[2021-02-04] MEDS: Senna/Docusate Sodium 1 Tablet 2 TABLET GT (20:32)
[2021-02-04 23:26] LABS: Bedside Glucose 222 mg/dL (70-110)
[2021-02-05] VITALS (41 sets, daily range): BP systolic 105–131; BP diastolic 52–69; PULSE 68–85; RESP 11–23; TEMP 36.9–38.4; O2SAT 88–95
[2021-02-05] MEDS: CHLORHEXIDINE GLUC 2% CLOTH 1 EACH TOWELETTE TOPICAL (02:53)
[2021-02-05] MEDS: Acetaminophen 650 MG/20 ML UDC GT (02:53)
[2021-02-05] MEDS: Propofol 10MG/Ml 1,000 MG/100 ML Bottle 10.4 MG CONT INF (03:45)
[2021-02-05 04:51] LABS: Absolute Lymphocyte Count 0.57 X10^3/uL (0.83-4.51); Absolute Neutrophil Count 5.1 X10^3/uL (2.0-7.7); Basophil# 0.01 X10^3/uL; Basophil% 0.2 % (0-1); Eosinophil# 0.02 X10^3/uL; Eosinophils% 0.3 % (0-5); Hematocrit 33.1 % (37-47); Hemoglobin 10.3 g/dL (12.0-15.0); Lymphocyte # 0.57 X10^3/ul (0.83-4.51); Lymphocyte % 9.4 % (19-41); Mean Corp Hgb Conc 31.1 g/dL (32-36); Mean Corpuscular Volume 89.9 fL (81-99); Mean Platelet Vol. 10.7 fl (6.2-12.0); Monocyte# 0.24 X10^3/uL; Monocyte% 3.9 % (0-10); NRBC Flagged by Analyzer 0 % (0-5); Neutrophil # 5.14 X10^3/uL (2.7-7.7); Neutrophil % 84.4 % (47-70); POSITIVE DIFFERENTIAL YES; Platelet Count 168 K/mm3 (150-450); RBC Distribution Width CV 13.1 % (11.6-14.6); RBC Distribution Width SD 43.4 fl (35.1-43.9); Red Blood Count 3.68 M/mm3 (4.2-5.4); White Blood Count 6.1 K/mm3 (4.4-11.0)
[2021-02-05 05:10] LABS: Anion Gap 1 (5-15); BUN 49 mg/dL (7-18); Calcium,Total 7.5 mg/dL (8.5-10.1); Chloride 105 mmol/L (98-107); Creatinine, Serum 0.72 mg/dL (0.55-1.02); EST Glomerular Filtration Rate 88 mL/min (>60); Est Glom Filt Rate - Afr Amer 106 mL/min (>60); Estimated Creatinine Clearance 63.48 ml/min; Glucose 261 mg/dL (74-106); Potassium 4.6 mmol/L (3.5-5.1); Sodium Level 142 mmol/L (136-145)
[2021-02-05 05:16] LABS: Differential Indicated SCAN CRITERIA MET
--- NOTE | 2021-02-05 05:44 | PN.CC_ITS ---
Assessment & Plan Assessment/Plan (1) Acute and chronic respiratory failure with hypoxia: (2) COVID-19: PLAN: RECOMMENDATIONS: 1. Continue to wean FiO2 and PEEP to maintain oxygen saturations at or above 90%. 2. Attempt to maintain plateau pressures less than 30. 3. Continue Levophed to maintain a mean arterial pressure at or above 65 mmHg. 4. Continue antimicrobials. 5. Administer IV Lasix today. 6. Continue tube feeds as tolerated. 7. Continue Decadron to complete 10-day treatment course. 8. Continue appropriate ICU prophylaxis. IMPRESSIONS: 1. Acute hypoxemic respiratory failure secondary to COVID-19 pneumonia The patient presented to the hospital with approximately 2 weeks of symptoms. She was outside of the window to receive remdesivir. Although the patient was maintained on noninvasive positive pressure ventilatory support initially, she continued to decompensate from a respiratory perspective, eventually requiring i ntubation on February 02. She will be continued on assist control mode of mechanical ventilation with FiO2 and PEEP weaned to maintain saturations at or above 90%. Goal to maintain plateau pressures less than 30. Decadron will be continued to complete treatment course. Tube feeds will be continued. Twice daily Lovenox will be continued. IV Lasix will be administered today as well. 2. E. coli cystitis Continue antimicrobials as ordered to complete 7-day treatment course. 3. Diabetes mellitus/history of breast CA/hypertension/obesity/hyperlipidemia Complicates care, management, recovery and prognosis. Continue Lantus and sliding scale insulin coverage. Mobilize patient as tolerated. TIME: 34 minutes of critical care time, independent of procedures, was spent addressing the patient's acute hypoxemic respiratory failure secondary to COVID- 19 pneumonia, E. coli cystitis, review of all data and collaboration with the care team. ([id number]) Subjective Subjective The patient was seen and examined at the bedside this morning. Events from the last 24 hours have been reviewed. The patient currently has a low-grade fever. She remains on assist control mode of mechanical ventilation with an FiO2 requirement of 70% and PEEP of 14. She is currently documented to be overall net -3.1 L for the hospital admission. Serum bicarbonate is elevated to 36 this morning. Creatinine remains stable. The patient remains sedated on propofol and fentanyl. She remains on low-dose Levophed at 1 mcg/min to maintain hemodynamic stability. She has been tolerant of tube feeds. The patient did receive IV Lasix x1 yesterday. The patient has completed her treatment course of Decadron. Plateau pressures remain in the mid 20s. Objective Data Objective Data The patient's most recent lab work, culture data and imaging studies have all been personally reviewed. Rapid coronavirus antigen testing was positive on January 28. Sputum culture appears to be normal respiratory kell. Urine culture was positive for pansensitive E. coli. Vital Signs: Vital Signs Temp Pulse Resp BP Pulse Ox 100.6 F H 75 16 105/54 L 91 02/05/21 04:00 02/05/21 04:22 02/05/21 04:22 02/05/21 04:00 02/05/21 04:22 Oxygen Flow Rate (L/min) 60 Oxygen Delivery Method Mechanical Ventilator Weight: 88.1 kg Body Mass Index (BMI) 35.2 Intake & Output: Intake and Output for Last 24 Hours 02/03/21 02/04/21 02/05/21 23:59 23:59 23:59 Intake Total 1115.92 / 1195.72 2032.26 / 2149.56 352.7 / 352.7 Output Total 1230 / 1230 2190 / 2190 Balance -114.08 / -34.28 -157.74 / -40.44 352.7 / 352.7 Lab / Micro Data Attestation: I reviewed the patient's lab results. Result Diagrams: 02/05/21 01:05 02/05/21 01:05 Labs: Laboratory Results - last 24 hr 02/04/21 04:45: WBC 11.4 H, RBC 4.09 L, Hgb 11.4 L, Hct 36.1 L, MCV 88.3, MCH 27.9, MCHC 31.6 L, RDW Std Deviation 43.6, RDW Coeff of Jay 13.4, Plt Count 260, MPV 10.2, Immature Gran % (Auto) 2.300 H, Neut % (Auto) 86.6 H, Lymph % (Auto) 7.2 L, [place] % (Auto) 3.5, Eos % (Auto) 0.1, Baso % (Auto) 0.3, Absolute Neuts (auto) 9.9 H, Absolute Lymphs (auto) 0.82 L, Nucleated RBC % 0 02/04/21 04:45: Sodium 139, Potassium 4.7, Chloride 103, Carbon Dioxide 31.0, Anion Gap 5, BUN 39 H, Creatinine 0.73, Estim Creat Clear Calc 62.61, Est GFR (MDRD) Af Amer 105, Est GFR (MDRD) Non-Af 87, BUN/Creatinine Ratio 53.6 H, Glucose 363 H, Calcium 7.9 L 02/04/21 08:58: POC Glucose 367 H 02/04/21 11:50: POC Glucose 335 H 02/04/21 16:51: POC Glucose 275 H 02/04/21 22:56: POC Glucose 222 H 02/05/21 01:05: WBC 6.1, RBC 3.68 L, Hgb 10.3 L, Hct 33.1 L, MCV 89.9, MCH 28.0, MCHC 31.1 L, RDW Std Deviation 43.4, RDW Coeff of Jay 13.1, Plt Count 168, MPV 10.7, Immature Gran % (Auto) 1.800 H, Neut % (Auto) 84.4 H, Lymph % (Auto) 9.4 L , [place] % (Auto) 3.9, Eos % (Auto) 0.3, Baso % (Auto) 0.2, Absolute Neuts (auto) 5.1, Absolute Lymphs (auto) 0.57 L, Nucleated RBC % 0 02/05/21 01:05: Sodium 142, Potassium 4.6, Chloride 105, Carbon Dioxide 36.0 H, Anion Gap 1 L, BUN 49 H, Creatinine 0.72, Estim Creat Clear Calc 63.48, Est GFR (MDRD) Af Amer 106, Est GFR (MDRD) Non-Af 88, BUN/Creatinine Ratio 68.0 H, Glucose 261 H, Calcium 7.5 L Micro: Microbiology 02/02/21 13:20 Sputum, Induced/Lukens Gram Stain - Final 02/02/21 13:20 Sputum, Induced/Lukens Respiratory Culture - Preliminary Staphylococcus aureus Streptococcus pneumoniae 02/02/21 14:10 Urine Catheter - Nichole Urine Culture - Final Escherichia coli 01/28/21 17:00 Blood Culture (Wb) - Anticubital Left Blood Culture - Final No growth in 5 days. 01/28/21 16:55 Blood Culture (Wb) - Left Hand Blood Culture - Final No growth in 5 days. 01/28/21 17:00 Mucosa - Nose SARS-CoV-2 Antigen (Rapid) - Final SARS-CoV-2 (COVID 19) Physical Exam Const no apparent distress General Appearance: comfortable, intubated and patient mechanically ventilated Nutritional Appearance: obese HEENT normocephalic and head/scalp atraumatic Mouth: endotracheal tube in place and OG tube in place Eyes PERRL, EOMs intact bilaterally and conjunctivae normal Neck supple General: trachea midline and CVC in place Resp Auscultation: diminished lung sounds; Negative for rales, rhonchi or wheezes Cardio regular rate and regular rhythm GI normal to inspection, nondistended, normoactive bowel sounds Extremity no clubbing, cyanosis or edema Skin no rashes or lesions noted Neuro no focal motor deficits Sensorium / Orientation: sedated on vent Charges/Coding Procedures Hospitalists Procedures: [id number] Critial Care 1st Hr
[2021-02-05] MEDS: TITRATION PARAMETER CHANGE 1 EACH IV (06:12)
[2021-02-05 06:30] LABS: Allen Test Positive; Base Excess 7 mmol/L (-2 to +2); Bicarbonate 33.3 mmol/L (22-26); Blood Gas Specimen Type ART; Comment AC/VC+; FI02 70; Mode AC; O2 Delivery Device Adult Vent; PEEP 14; PO2 69 mmHG (75-100); RR 16; SITE L Radial; SO2 92 % (95-99); Total Carbon Dioxide 35 mmol/L; Vt 300; pCO2 62.8 mmHg (35-45); pH 7.33 (7.35-7.45)
[2021-02-05] MEDS: Anastrozole 1 MG TABLET PO (08:59)
[2021-02-05] MEDS: Enoxaparin 30 MG/0.3 ML Syringe SC ×2 (08:59→20:20)
[2021-02-05] MEDS: Famotidine 200 MG/20 ML MDV 20 MG in 0.9% Normal Saline (Pres. free 8 ML 300 MG IV ×2 (08:59→20:21)
[2021-02-05] MEDS: Ibuprofen 200 MG Tablet GT (09:00)
[2021-02-05] MEDS: FLUoxetine 20 MG Capsule 40 MG GT (09:00)
[2021-02-05] MEDS: Senna/Docusate Sodium 1 Tablet 2 TABLET GT ×2 (09:00→20:21)
[2021-02-05] MEDS: Polyethylene Glycol 3350 17 GM PACKET GT (09:00)
[2021-02-05] MEDS: Gabapentin 400 MG Capsule GT ×3 (09:01→20:21)
[2021-02-05] MEDS: dexAMETHasone 2 MG TABLET 6 MG GT (09:01)
[2021-02-05] MEDS: Cyanocobalamin 500 MCG Tablet GT (09:01)
[2021-02-05] MEDS: Insulin Lispro 100 UNIT/ML INSULN.PEN SC ×4 (09:02→20:23)
[2021-02-05] MEDS: Insulin Lispro 100 UNIT/ML INSULN.PEN 25 UNIT SC ×3 (09:02→16:40)
[2021-02-05] MEDS: Chlorhexidine 15 ML PO ×2 (09:03→20:23)
[2021-02-05] MEDS: Nystatin Powder 15gm Bottle 1 APPLIC TOPICAL ×2 (09:03→20:22)
[2021-02-05] MEDS: Furosemide 40 MG/4 ML Vial IV (09:11)
[2021-02-05 09:31] LABS: Bedside Glucose 353 mg/dL (70-110)
[2021-02-05 12:00] LABS: Bedside Glucose 370 mg/dL (70-110)
--- NOTE | 2021-02-05 12:05 | PN.HOSP_ITS ---
Subjective Subjective Mild low-grade fever last night. Intubated and sedated Objective Data Objective Data Vital Signs: Vital Signs Temp Pulse Resp BP Pulse Ox 98.8 F 77 17 120/69 92 02/05/21 11:00 02/05/21 11:00 02/05/21 11:00 02/05/21 11:00 02/05/21 11:00 Oxygen Flow Rate (L/min) 60 Oxygen Delivery Method Mechanical Ventilator Weight: 194 lb 3.636 oz Body Mass Index (BMI) 35.2 Intake & Output: Intake and Output for Last 24 Hours 02/03/21 02/04/21 02/05/21 23:59 23:59 23:59 Intake Total 1115.92 / 1195.72 2032.26 / 2149.56 956.75 / 956.75 Output Total 1230 / 1230 2190 / 2190 1375 / 1375 Balance -114.08 / -34.28 -157.74 / -40.44 -418.25 / -418.25 Lab / Micro Data Result Diagrams: 02/05/21 01:05 02/05/21 01:05 Labs: Laboratory Results - last 24 hr 02/04/21 11:50: POC Glucose 335 H 02/04/21 16:51: POC Glucose 275 H 02/04/21 22:56: POC Glucose 222 H 02/05/21 01:05: WBC 6.1, RBC 3.68 L, Hgb 10.3 L, Hct 33.1 L, MCV 89.9, MCH 28.0, MCHC 31.1 L, RDW Std Deviation 43.4, RDW Coeff of Jay 13.1, Plt Count 168, MPV 10.7, Immature Gran % (Auto) 1.800 H, Neut % (Auto) 84.4 H, Lymph % (Auto) 9.4 L , [place] % (Auto) 3.9, Eos % (Auto) 0.3, Baso % (Auto) 0.2, Absolute Neuts (auto) 5.1, Absolute Lymphs (auto) 0.57 L, Nucleated RBC % 0 02/05/21 01:05: Sodium 142, Potassium 4.6, Chloride 105, Carbon Dioxide 36.0 H, Anion Gap 1 L, BUN 49 H, Creatinine 0.72, Estim Creat Clear Calc 63.48, Est GFR (MDRD) Af Amer 106, Est GFR (MDRD) Non-Af 88, BUN/Creatinine Ratio 68.0 H, Glucose 261 H, Calcium 7.5 L 02/05/21 08:55: POC Glucose 353 H 02/05/21 11:23: POC Glucose 370 H Micro: Microbiology 02/02/21 13:20 Sputum, Induced/Lukens Gram Stain - Final 02/02/21 13:20 Sputum, Induced/Lukens Respiratory Culture - Preliminary Staphylococcus aureus Streptococcus pneumoniae 02/02/21 14:10 Urine Catheter - Nichole Urine Culture - Final Escherichia coli 01/28/21 17:00 Blood Culture (Wb) - Anticubital Left Blood Culture - Final No growth in 5 days. 01/28/21 16:55 Blood Culture (Wb) - Left Hand Blood Culture - Final No growth in 5 days. 01/28/21 17:00 Mucosa - Nose SARS-CoV-2 Antigen (Rapid) - Final SARS-CoV-2 (COVID 19) ABG Data ABG results: ABG 02/05/21 06:24 Specimen Type ART Sample Site L Radial pH 7.33 L Bicarbonate Actual 33.3 H Total CO2 35 Base Excess 7 H O2 Saturation 92 L O2 % 70 ABG pCO2 62.8 H ABG pO2 69 L Roman Test Positive Respiration Rate 16 O2 Delivery Device Adult Vent Vent Mode AC Tidal Volume 300 POC PEEP 14 Clinical Comments AC/VC+ Physical Exam Narrative General: Sedated. HEENT: Atraumatic, PERRLA, EOMI, Normocephalic Oral: ET and OG tube. Neck: Supple, No JVD, Negative Carotid Bruits Lungs: On mechanical ventilator. Cardiovascular: , Normal S1, Normal S2, No murmurs Abdomen: Bowel Sounds t, Soft, Non Tender, Non-Distended : UOP: 1200 mL daily. No renal angle tenderness. No suprapubic tenderness. Extremities: No edema, Capillary Refill Less than 3 Seconds Skin: No rashes, No breakdown Musculoskeletal: No Tenderness to Palpation of Joints or Extremities Neurological: Cranial nerves II-XII grossly intact, sedated Psych/Mental Status: Sedated Assessment & Plan Assessment/Plan (1) COVID-19: (2) Acute and chronic respiratory failure with hypoxia: PLAN: Patient is a 60-year-old lady admitted with persistent cough. She had received 1 out of 2 Covid vaccine prior to her admission. An assessment of acute hypoxic respiratory failure secondary to SARS-CoV-2 pneumonia made admitted to regular nursing floor for further management 1. Acute hypoxic respiratory failure ?Secondary to SARS-CoV-2 pneumonia. Patient was out of the window for remdes ivir she was however started on Decadron in addition to supplemental oxygen which is currently being titrated to keep saturation greater than 90. Oxygen requirement continues to increase currently on BiPAP 100% FiO2. 02/03: Patient intubated on 100% FiO2. PEEP 12. 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 Septic shock secondary to bilateral COVID-19 pneumonia: Currently on Levophed drip. 02/04: Patient is spiked fever on 02/03 T-max 101.2 Fahrenheit. On IV Zosyn. Lower respiratory tract infection, sputum culture shows 2+ gram-positive cocci 02/05: On 70% FiO2, PEEP 14. Sputum culture growing MSSA and strep pneumonia. On IV Zosyn. E. coli cystitis, present since admission 2. Diabetes mellitus type 2 uncontrolled with hyperglycemia ?Patient uncontrolled diabetes attributed to patient receiving concomitant steroid. Insulin dose was adjusted. Patient had hypoglycemic event on 02/01 morning. 3. History of breast CA ?Previous mastectomy currently on anastrozole. 4. Currently hypotensive: Levophed drip 5. DVT prophylaxis ?SC Lovenox 6. Obesity with BMI of 35.3 CODE STATUS: Full Total time of the visit including total time spent in counseling or coordination of care, (more than 50% of the total time, spent in obtaining medical information from nurses and other ancillary care providers,explaining to the patient about labs, imaging, diagnosis and management), discussion with consultants, review of labs and imaging is 30 minutes. Charges/Coding Visit Charges Inpatient E&M: 87920 [facility] Hosp L3
[2021-02-05] MEDS: Propofol 10MG/Ml 1,000 MG/100 ML Bottle 10.6 MG CONT INF ×2 (12:47→19:25)
[2021-02-05] MEDS: Vital AF 1.2 Cal Liquid 1,000 ML 60 ML GT (16:40)
[2021-02-05 17:10] LABS: Bedside Glucose 277 mg/dL (70-110)
[2021-02-05] MEDS: Atorvastatin Calcium 20 MG Tablet GT (20:21)
[2021-02-05 21:21] LABS: Bedside Glucose 237 mg/dL (70-110)
[2021-02-06] VITALS (39 sets, daily range): BP systolic 107–147; BP diastolic 55–92; PULSE 74–105; RESP 10–24; TEMP 37.4–39.3; O2SAT 86–94
[2021-02-06] MEDS: TITRATION PARAMETER CHANGE 1 EACH IV (02:49)
[2021-02-06] MEDS: Propofol 10MG/Ml 1,000 MG/100 ML Bottle 7.7 MG CONT INF ×3 (04:45→20:20)
[2021-02-06 05:17] LABS: Absolute Lymphocyte Count 0.82 X10^3/uL (0.83-4.51); Absolute Neutrophil Count 6.8 X10^3/uL (2.0-7.7); Basophil# 0.02 X10^3/uL; Basophil% 0.2 % (0-1); Eosinophils% 1.2 % (0-5); Hematocrit 34.9 % (37-47); Hemoglobin 10.8 g/dL (12.0-15.0); Lymphocyte # 0.82 X10^3/ul (0.83-4.51); Mean Corp Hgb Conc 30.9 g/dL (32-36); Mean Corpuscular Hgb 27.9 pg (27.0-32.0); Mean Corpuscular Volume 90.2 fL (81-99); Mean Platelet Vol. 10.2 fl (6.2-12.0); Monocyte# 0.27 X10^3/uL; Monocyte% 3.3 % (0-10); NRBC Flagged by Analyzer 0 % (0-5); Neutrophil # 6.81 X10^3/uL (2.7-7.7); Neutrophil % 83.2 % (47-70); Platelet Count 144 K/mm3 (150-450); RBC Distribution Width CV 12.9 % (11.6-14.6); RBC Distribution Width SD 42.5 fl (35.1-43.9); Red Blood Count 3.87 M/mm3 (4.2-5.4); White Blood Count 8.2 K/mm3 (4.4-11.0)
[2021-02-06 05:34] LABS: Anion Gap 0 (5-15); BUN 44 mg/dL (7-18); BUN/Creat Ratio 76.9 RATIO (10-20); Calcium,Total 7.3 mg/dL (8.5-10.1); Chloride 107 mmol/L (98-107); Creatinine, Serum 0.57 mg/dL (0.55-1.02); EST Glomerular Filtration Rate 115 mL/min (>60); Est Glom Filt Rate - Afr Amer 139 mL/min (>60); Estimated Creatinine Clearance 80.19 ml/min; Glucose 201 mg/dL (74-106); Potassium 4.2 mmol/L (3.5-5.1); Sodium Level 145 mmol/L (136-145)
[2021-02-06] MEDS: Acetaminophen 650 MG/20 ML UDC GT (06:40)
[2021-02-06 08:02] LABS: AST(SGOT) 74 U/L (15-37); Alanine Aminotransfer ALT/SGPT 54 U/L (13-56); Albumin, Serum 1.8 g/dL (3.2-5.0); Alkaline Phosphatase 141 U/L (45-117); Bilirubin, Direct 0.15 mg/dL (0.00-0.30); Globulin 5.2 g/dL (2.2-4.2)
[2021-02-06] MEDS: Insulin Lispro 100 UNIT/ML INSULN.PEN SC ×4 (08:28→20:12)
[2021-02-06] MEDS: Insulin Lispro 100 UNIT/ML INSULN.PEN 25 UNIT SC ×3 (08:31→17:02)
[2021-02-06] MEDS: Chlorhexidine 15 ML PO ×2 (08:32→20:07)
[2021-02-06] MEDS: CHLORHEXIDINE GLUC 2% CLOTH 1 EACH TOWELETTE TOPICAL (08:35)
[2021-02-06] MEDS: Anastrozole 1 MG TABLET PO (08:35)
[2021-02-06] MEDS: Nystatin Powder 15gm Bottle 1 APPLIC TOPICAL ×2 (08:38→20:14)
--- NOTE | 2021-02-06 08:42 | PN.CC_ITS ---
Assessment & Plan Assessment/Plan (1) Acute and chronic respiratory failure with hypoxia: (2) COVID-19: PLAN: RECOMMENDATIONS: 1. Continue to wean FiO2 and PEEP to maintain oxygen saturations at or above 90%. 2. Attempt to maintain plateau pressures less than 30. Potentially wean PEEP later today 3. Continue Levophed to maintain a mean arterial pressure at or above 65 mmHg. 4. Continue antimicrobials. 5. Continue to give Lasix pending labs 6. Continue tube feeds as tolerated. 7. Continue Decadron to complete 10-day treatment course. 8. Continue appropriate ICU prophylaxis. IMPRESSIONS: 1. Acute hypoxemic respiratory failure secondary to COVID-19 pneumonia The patient presented to the hospital with approximately 2 weeks of symptoms. She was outside of the window to receive remdesivir. Although the patient was maintained on noninvasive positive pressure ventilatory support initially, she continued to decompensate from a respiratory perspective, eventually requiring intubation on February 02. She will be continued on assist control mode of mechanical ventilation with FiO2 and PEEP weaned to maintain saturations at or above 90%. Goal to maintain plateau pressures less than 30. Decadron will be continued to complete treatment course. Tube feeds will be continued. Twice daily Lovenox will be continued. IV Lasix will be administered today as well. Potentially wean PEEP if able to drop to 50% FiO2. 2. E. coli cystitis Continue antimicrobials as ordered to complete 7-day treatment course. 3. Diabetes mellitus/history of breast CA/hypertension/obesity/hyperli pidemia Complicates care, management, recovery and prognosis. Continue Lantus and sliding scale insulin coverage. Mobilize patient as tolerated. TIME: 32 minutes of critical care time, independent of procedures, was spent addressing the patient's acute hypoxemic respiratory failure secondary to COVID- 19 pneumonia, E. coli cystitis, review of all data and collaboration with the care team. (6 AM to 7 AM) Subjective Subjective Patient did okay overnight. Patient has been off of Levophed since approximately noon yesterday. Patient has been having bowel movements and tolerating tube feeds. Patient did have a fever overnight, but remained hemodynamically stable. Patient did not have a spontaneous breathing trial secondary to elevated PEEP. Objective Data Objective Data Vital Signs: Vital Signs Temp Pulse Resp BP Pulse Ox 39.1 C H 102 H 20 H 129/65 H 92 02/06/21 07:00 02/06/21 07:39 02/06/21 07:00 02/06/21 07:00 02/06/21 07:00 Oxygen Flow Rate (L/min) 60 Oxygen Delivery Method Mechanical Ventilator Weight: 85.1 kg Body Mass Index (BMI) 35.2 Intake & Output: Intake and Output for Last 24 Hours 02/04/21 02/05/21 02/06/21 23:59 23:59 23:59 Intake Total 2032.26 / 2149.56 2196.09 / 2208.07 812.49 / 812.49 Output Total 2190 / 2190 2054 / 2054 665 / 665 Balance -157.74 / -40.44 141.09 / 153.07 147.49 / 147.49 Lab / Micro Data Result Diagrams: 02/06/21 05:00 02/06/21 05:00 Labs: Laboratory Results - last 24 hr 02/05/21 08:55: POC Glucose 353 H 02/05/21 11:23: POC Glucose 370 H 02/05/21 16:36: POC Glucose 277 H 02/05/21 20:19: POC Glucose 237 H 02/06/21 05:00: WBC 8.2, RBC 3.87 L, Hgb 10.8 L, Hct 34.9 L, MCV 90.2, MCH 27.9, MCHC 30.9 L, RDW Std Deviation 42.5, RDW Coeff of Jay 12.9, Plt Count 144 L, MPV 10.2, Immature Gran % (Auto) 2.100 H, Neut % (Auto) 83.2 H, Lymph % (Auto) 10.0 L, [place] % (Auto) 3.3, Eos % (Auto) 1.2, Baso % (Auto) 0.2, Absolute Neuts (auto) 6.8, Absolute Lymphs (auto) 0.82 L, Nucleated RBC % 0 02/06/21 05:00: Sodium 145, Potassium 4.2, Chloride 107, Carbon Dioxide 38.0 H, Anion Gap 0 L, BUN 44 H, Creatinine 0.57, Estim Creat Clear Calc 80.19, Est GFR (MDRD) Af Amer 139, Est GFR (MDRD) Non-Af 115, BUN/Creatinine Ratio 76.9 H, Glucose 201 H, Calcium 7.3 L 02/06/21 05:00: Total Bilirubin 0.40, Direct Bilirubin 0.15, AST 74 H, ALT 54, Alkaline Phosphatase 141 H, Total Protein 7.0, Albumin 1.8 L, Globulin 5.2 H Micro: Microbiology 02/02/21 13:20 Sputum, Induced/Lukens Gram Stain - Final 02/02/21 13:20 Sputum, Induced/Lukens Respiratory Culture - Final Staphylococcus aureus Streptococcus pneumoniae 02/02/21 14:10 Urine Catheter - Nichole Urine Culture - Final Escherichia coli 01/28/21 17:00 Blood Culture (Wb) - Anticubital Left Blood Culture - Final No growth in 5 days. 01/28/21 16:55 Blood Culture (Wb) - Left Hand Blood Culture - Final No growth in 5 days. 01/28/21 17:00 Mucosa - Nose SARS-CoV-2 Antigen (Rapid) - Final SARS-CoV-2 (COVID 19) Physical Exam Const General Appearance: well developed and patient mechanically ventilated; Negative for in distress HEENT normocephalic, head/scalp atraumatic and moist oral mucous membranes Eyes PERRL, EOMs intact bilaterally, conjunctivae normal and no scleral icterus Neck full ROM Lymph Lymphatic: no lymphadenopathy noted Resp normal respiratory effort and no use of accessory muscles Resp Narrative: Rhonchi improved with suctioning Auscultation: rhonchi throughout Cardio regular rate, regular rhythm, S1 normal heart sound, S2 normal heart sound, no murmurs, no rub and no gallops GI normal to inspection, nondistended, normoactive bowel sounds Extremity General Extremity: edema bilateral (1+); Negative for clubbing Skin no rashes or lesions noted Neuro no focal motor deficits Psych Psych Narrative: RASS -2 Charges/Coding Procedures Hospitalists Procedures: [id number] Critial Care 1st Hr
[2021-02-06] MEDS: Famotidine 200 MG/20 ML MDV 20 MG in 0.9% Normal Saline (Pres. free 8 ML 300 MG IV ×2 (10:56→20:16)
[2021-02-06] MEDS: Enoxaparin 30 MG/0.3 ML Syringe SC ×2 (10:57→20:12)
[2021-02-06] MEDS: dexAMETHasone 2 MG TABLET 6 MG GT (11:00)
[2021-02-06] MEDS: Gabapentin 400 MG Capsule GT ×3 (11:00→20:15)
[2021-02-06] MEDS: FLUoxetine 20 MG Capsule 40 MG GT (11:01)
[2021-02-06] MEDS: Cyanocobalamin 500 MCG Tablet GT (11:01)
--- NOTE | 2021-02-06 11:05 | PCM.PN.HOSP ---
Subjective Subjective Patient is intubated, on mechanical ventilator on Levophed. No acute events overnight Objective Data Objective Data Vital Signs: Vital Signs Temp Pulse Resp BP Pulse Ox 102.3 F H 94 17 129/65 H 92 02/06/21 07:00 02/06/21 08:51 02/06/21 08:51 02/06/21 07:00 02/06/21 08:51 Oxygen Flow Rate (L/min) 60 Oxygen Delivery Method Mechanical Ventilator Weight: 85.1 kg Body Mass Index (BMI) 35.2 Intake & Output: Intake and Output for Last 24 Hours 02/04/21 02/05/21 02/06/21 23:59 23:59 23:59 Intake Total 2032.26 / 2149.56 2196.09 / 2208.07 827.49 / 827.49 Output Total 2190 / 2190 2055 / 2055 665 / 665 Balance -157.74 / -40.44 141.09 / 153.07 162.49 / 162.49 Lab / Micro Data Result Diagrams: 02/06/21 05:00 02/06/21 05:00 Labs: Laboratory Results - last 24 hr 02/05/21 11:23: POC Glucose 370 H 02/05/21 16:36: POC Glucose 277 H 02/05/21 20:19: POC Glucose 237 H 02/06/21 05:00: WBC 8.2, RBC 3.87 L, Hgb 10.8 L, Hct 34.9 L, MCV 90.2, MCH 27.9, MCHC 30.9 L, RDW Std Deviation 42.5, RDW Coeff of Jay 12.9, Plt Count 144 L, MPV 10.2, Immature Gran % (Auto) 2.100 H, Neut % (Auto) 83.2 H, Lymph % (Auto) 10.0 L, [place] % (Auto) 3.3, Eos % (Auto) 1.2, Baso % (Auto) 0.2, Absolute Neuts (auto) 6.8, Absolute Lymphs (auto) 0.82 L, Nucleated RBC % 0 02/06/21 05:00: Sodium 145, Potassium 4.2, Chloride 107, Carbon Dioxide 38.0 H, Anion Gap 0 L, BUN 44 H, Creatinine 0.57, Estim Creat Clear Calc 80.19, Est GFR (MDRD) Af Amer 139, Est GFR (MDRD) Non-Af 115, BUN/Creatinine Ratio 76.9 H, Glucose 201 H, Calcium 7.3 L 02/06/21 05:00: Total Bilirubin 0.40, Direct Bilirubin 0.15, AST 74 H, ALT 54, Alkaline Phosphatase 141 H, Total Protein 7.0, Albumin 1.8 L, Globulin 5.2 H Micro: Microbiology 02/02/21 13:20 Sputum, Induced/Lukens Gram Stain - Final 02/02/21 13:20 Sputum, Induced/Lukens Respiratory Culture - Final Staphylococcus aureus Streptococcus pneumoniae 02/02/21 14:10 Urine Catheter - Nichole Urine Culture - Final Escherichia coli 01/28/21 17:00 Blood Culture (Wb) - Anticubital Left Blood Culture - Final No growth in 5 days. 01/28/21 16:55 Blood Culture (Wb) - Left Hand Blood Culture - Final No growth in 5 days. 01/28/21 17:00 Mucosa - Nose SARS-CoV-2 Antigen (Rapid) - Final SARS-CoV-2 (COVID 19) Physical Exam Narrative General: Sedated. HEENT: Atraumatic, PERRLA, EOMI, Normocephalic Oral: ET and OG tube. Neck: Supple, No JVD, Negative Carotid Bruits Lungs: On mechanical ventilator. Cardiovascular: , Normal S1, Normal S2, No murmurs Abdomen: Bowel Sounds t, Soft, Non Tender, Non-Distended : UOP: 1200 mL daily. No renal angle tenderness. No suprapubic tenderness. Extremities: No edema, Capillary Refill Less than 3 Seconds Skin: No rashes, No breakdown Musculoskeletal: No Tenderness to Palpation of Joints or Extremities Neurological:sedated Psych/Mental Status: Sedated Assessment & Plan Assessment/Plan (1) COVID-19: (2) Acute and chronic respiratory failure with hypoxia: PLAN: 1.Acute hypoxic respiratory failure secondary to COVID-19 pneumonia/MSSA and strep pneumonia Patient was intubated on 02/03/21. Continues to have fever She was also started on Levophed drip on the same day Continue on propofol, fentanyl, Levophed, IV Levaquin 2.Diabetes mellitus type 2 uncontrolled with hyperglycemia Will increase Lantus to 32 units twice daily, continue on Humalog 25 units 3 times daily 3.Septic shock secondary to #1 -acute COVID-19 pneumonia/MSSA/strep pneumonia/E. coli UTI Blood cultures x5 have been negative Remains on Levophed, continue to monitor 4. Rest of her chronic medical conditions including history of breast CA, status post mastectomy/hyperlipidemia/depression/obesity?remain stable Home med list reviewed Charges/Coding Visit Charges Inpatient E&M: 79871 Subs Hosp L2
[2021-02-06] MEDS: Furosemide 20 MG/2 ML VIAL IV (12:39)
--- NOTE | 2021-02-06 12:54 | PCM.PN.ID ---
Physical Exam Narrative On vent, fever this AM, off levophed. Some diarrhea per nursing. Const Constitutional Narrative: intubated, sedated Resp Auscultation: diminished lung sounds Cardio regular rate and regular rhythm GI normal to inspection, nondistended, normoactive bowel sounds Skin no rashes or lesions noted ID ID: Route of nutrition/ use of supplements: [] Nutritional Intake: [] IV Site: [] [place] Catheter: [] Assessment & Plan Assessment/Plan (1) Acute and chronic respiratory failure with hypoxia: (2) COVID-19: PLAN: Sx for 2 weeks on presentation. Has been vaccinated. On vent, off pressors, fever today. On dex. Sputum with mssa and strep, ucx with ecoli. On levaquin now, zosyn stopped. CT neg for PE. Has been over 20 days since symptoms started, ok to stop isolation. Will follow, d/w nursing
[2021-02-06 13:11] LABS: Bedside Glucose 159 mg/dL (70-110)
[2021-02-06] MEDS: levoFLOXacin IV 750 MG/150 ML BAG 100 MG IV (14:09)
[2021-02-06 17:16] LABS: Bedside Glucose 224 mg/dL (70-110)
[2021-02-06] MEDS: Atorvastatin Calcium 20 MG Tablet GT (20:14)
[2021-02-06] MEDS: Vital AF 1.2 Cal Liquid 1,000 ML 60 ML GT (20:36)
[2021-02-06 21:50] LABS: Bedside Glucose 226 mg/dL (70-110)
[2021-02-07] VITALS (35 sets, daily range): BP systolic 107–156; BP diastolic 55–82; PULSE 65–104; RESP 10–25; TEMP 37.3–38.5; O2SAT 86–94
[2021-02-07 04:32] LABS: Absolute Lymphocyte Count 0.92 X10^3/uL (0.83-4.51); Absolute Neutrophil Count 8.7 X10^3/uL (2.0-7.7); Basophil# 0.02 X10^3/uL; Basophil% 0.2 % (0-1); Eosinophil# 0.12 X10^3/uL; Eosinophils% 1.2 % (0-5); Hematocrit 37.4 % (37-47); Hemoglobin 11.4 g/dL (12.0-15.0); Lymphocyte # 0.92 X10^3/ul (0.83-4.51); Mean Corp Hgb Conc 30.5 g/dL (32-36); Mean Corpuscular Hgb 27.9 pg (27.0-32.0); Mean Corpuscular Volume 91.7 fL (81-99); Mean Platelet Vol. 10.4 fl (6.2-12.0); Monocyte# 0.27 X10^3/uL; Monocyte% 2.6 % (0-10); NRBC Flagged by Analyzer 0.2 % (0-5); Neutrophil % 84.7 % (47-70); Platelet Count 136 K/mm3 (150-450); RBC Distribution Width SD 43.8 fl (35.1-43.9); Red Blood Count 4.08 M/mm3 (4.2-5.4); White Blood Count 10.3 K/mm3 (4.4-11.0)
[2021-02-07 04:48] LABS: ALB/GLOB Ratio 0.4 RATIO (0.9-2.4); AST(SGOT) 61 U/L (15-37); Alanine Aminotransfer ALT/SGPT 51 U/L (13-56); Albumin, Serum 1.8 g/dL (3.2-5.0); Alkaline Phosphatase 135 U/L (45-117); Anion Gap -1 (5-15); BUN 40 mg/dL (7-18); BUN/Creat Ratio 69.4 RATIO (10-20); Calcium,Total 7.5 mg/dL (8.5-10.1); Chloride 105 mmol/L (98-107); Creatinine, Serum 0.58 mg/dL (0.55-1.02); EST Glomerular Filtration Rate 114 mL/min (>60); Est Glom Filt Rate - Afr Amer 138 mL/min (>60); Estimated Creatinine Clearance 78.81 ml/min; Globulin 4.9 g/dL (2.2-4.2); Glucose 309 mg/dL (74-106); Potassium 4.3 mmol/L (3.5-5.1); Protein, Total 6.7 g/dL (6.4-8.2); Sodium Level 144 mmol/L (136-145)
[2021-02-07] MEDS: Propofol 10MG/Ml 1,000 MG/100 ML Bottle 7.7 MG CONT INF ×3 (04:48→21:31)
[2021-02-07] MEDS: Insulin Lispro 100 UNIT/ML INSULN.PEN SC ×4 (06:19→21:03)
[2021-02-07] MEDS: CHLORHEXIDINE GLUC 2% CLOTH 1 EACH TOWELETTE TOPICAL (06:21)
[2021-02-07] MEDS: Furosemide 40 MG/4 ML Vial IV (06:23)
[2021-02-07 07:26] LABS: Bedside Glucose 324 mg/dL (70-110)
[2021-02-07] MEDS: levoFLOXacin IV 750 MG/150 ML BAG 100 MG IV (08:03)
[2021-02-07] MEDS: Insulin Lispro 100 UNIT/ML INSULN.PEN 25 UNIT SC ×3 (08:34→16:54)
[2021-02-07] MEDS: Famotidine 200 MG/20 ML MDV 20 MG in 0.9% Normal Saline (Pres. free 8 ML 330 MG IV (08:37)
[2021-02-07] MEDS: Nystatin Powder 15gm Bottle 1 APPLIC TOPICAL ×2 (08:40→20:29)
[2021-02-07] MEDS: Chlorhexidine 15 ML PO ×2 (08:41→20:29)
[2021-02-07] MEDS: Enoxaparin 30 MG/0.3 ML Syringe SC ×2 (08:43→20:28)
--- NOTE | 2021-02-07 08:44 | PN.CC_ITS ---
Assessment & Plan Assessment/Plan (1) Acute and chronic respiratory failure with hypoxia: (2) COVID-19: PLAN: RECOMMENDATIONS: 1. Continue to wean FiO2 and PEEP to maintain oxygen saturations at or above 90%. 2. Attempt to maintain plateau pressures less than 30. Potentially wean PEE P later today 3. Add Diamox to Lasix for today. 4. Continue antimicrobials. 5. Continue to give Lasix pending labs 6. Continue tube feeds as tolerated. 7. Completed Decadron course. Monitor blood sugars closely 8. Continue appropriate ICU prophylaxis. IMPRESSIONS: 1. Acute hypoxemic respiratory failure secondary to COVID-19 pneumonia The patient presented to the hospital with approximately 2 weeks of symptoms. She was outside of the window to receive remdesivir. Although the patient was maintained on noninvasive positive pressure ventilatory support initially, she continued to decompensate from a respiratory perspective, eventually requiring intubation on February 02. She will be continued on assist control mode of mechanical ventilation with FiO2 and PEEP weaned to maintain saturations at or above 90%. Goal to maintain plateau pressures less than 30. Decadron will be continued to complete treatment course. Tube feeds will be continued. Twice daily Lovenox will be continued. IV Lasix and Diamox will be administered today as well. Potentially wean PEEP if able to drop to 50% FiO2. 2. E. coli cystitis Continue antimicrobials as ordered to complete 7-day treatment course. 3. Diabetes mellitus/history of breast CA/hypertension/obesity/hyperlipidemia Complicates care, management, recovery and prognosis. Continue Lantus and sliding scale insulin coverage. Mobilize patient as tolerated. TIME: 38 minutes of critical care time, independent of procedures, was spent addressing the patient's acute hypoxemic respiratory failure secondary to COVID- 19 pneumonia, E. coli cystitis, review of all data and collaboration with the care team. (7:45 AM to 8:45 AM) Subjective Subjective Patient did okay overnight. No acute issues were reported from a hemodynamic standpoint. Patient did have significant fever, but remained hemodynamically s table. Oxygenation remains marginal. Patient continues to tolerate tube feeds. Nursing has reported increased oral secretions. Objective Data Objective Data Vital Signs: Vital Signs Temp Pulse Resp BP Pulse Ox 38.4 C H 85 22 H 126/66 H 94 02/07/21 07:00 02/07/21 07:00 02/07/21 07:00 02/07/21 07:00 02/07/21 07:00 Oxygen Flow Rate (L/min) 60 Oxygen Delivery Method Mechanical Ventilator Weight: 84.8 kg Body Mass Index (BMI) 35.2 Intake & Output: Intake and Output for Last 24 Hours 02/05/21 02/06/21 02/07/21 23:59 23:59 23:59 Intake Total 2196.09 / 2208.07 1368.08 / 1483.28 1565.60 / 1565.60 Output Total 2054 / 2054 1265 / 1265 150 / 150 Balance 141.09 / 153.07 103.08 / 218.28 1415.60 / 1415.60 Lab / Micro Data Result Diagrams: 02/07/21 04:20 02/07/21 04:20 Labs: Laboratory Results - last 24 hr 02/06/21 12:44: POC Glucose 159 H 02/06/21 16:57: POC Glucose 224 H 02/06/21 20:10: POC Glucose 226 H 02/07/21 04:20: WBC 10.3, RBC 4.08 L, Hgb 11.4 L, Hct 37.4, MCV 91.7, MCH 27.9, MCHC 30.5 L, RDW Std Deviation 43.8, RDW Coeff of Jay 13.0, Plt Count 136 L, MPV 10.4, Immature Gran % (Auto) 2.300 H, Neut % (Auto) 84.7 H, Lymph % (Auto) 9.0 L , [place] % (Auto) 2.6, Eos % (Auto) 1.2, Baso % (Auto) 0.2, Absolute Neuts (auto) 8.7 H, Absolute Lymphs (auto) 0.92, Nucleated RBC % 0.2 02/07/21 04:20: Sodium 144, Potassium 4.3, Chloride 105, Carbon Dioxide 40.0 H, Anion Gap -1 L, BUN 40 H, Creatinine 0.58, Estim Creat Clear Calc 78.81, Est GFR (MDRD) Af Amer 138, Est GFR (MDRD) Non-Af 114, BUN/Creatinine Ratio 69.4 H, Glucose 309 H, Calcium 7.5 L, Total Bilirubin 0.40, AST 61 H, ALT 51, Alkaline Phosphatase 135 H, Total Protein 6.7, Albumin 1.8 L, Globulin 4.9 H, Albumin/Globulin Ratio 0.4 L 02/07/21 06:18: POC Glucose 324 H Micro: Microbiology 02/02/21 13:20 Sputum, Induced/Lukens Gram Stain - Final 02/02/21 13:20 Sputum, Induced/Lukens Respiratory Culture - Final Staphylococcus aureus Streptococcus pneumoniae 02/02/21 14:10 Urine Catheter - Nichole Urine Culture - Final Escherichia coli 01/28/21 17:00 Blood Culture (Wb) - Anticubital Left Blood Culture - Final No growth in 5 days. 01/28/21 16:55 Blood Culture (Wb) - Left Hand Blood Culture - Final No growth in 5 days. 01/28/21 17:00 Mucosa - Nose SARS-CoV-2 Antigen (Rapid) - Final SARS-CoV-2 (COVID 19) Physical Exam Const Constitutional Narrative: Good vent synchrony noted General Appearance: well developed, intubated and patient mechanically ventilated; Negative for in distress HEENT normocephalic, head/scalp atraumatic and moist oral mucous membranes Eyes PERRL, EOMs intact bilaterally, conjunctivae normal and no scleral icterus Neck full ROM Lymph Lymphatic: no lymphadenopathy noted Resp normal respiratory effort and no use of accessory muscles Auscultation: diminished lung sounds; Negative for rales, rhonchi or wheezes Cardio regular rate, regular rhythm, S1 normal heart sound, S2 normal heart sound, no murmurs, no rub and no gallops GI normal to inspection, nondistended, normoactive bowel sounds Extremity General Extremity: edema bilateral (1+); Negative for clubbing Skin no rashes or lesions noted Neuro no focal motor deficits Psych Psych Narrative: RASS -2 Charges/Coding Procedures Hospitalists Procedures: [id number] Critial Care 1st Hr
[2021-02-07] MEDS: FLUoxetine 20 MG Capsule 40 MG GT (08:45)
[2021-02-07] MEDS: dexAMETHasone 2 MG TABLET 6 MG GT (08:45)
[2021-02-07] MEDS: Anastrozole 1 MG TABLET PO (08:46)
[2021-02-07] MEDS: Gabapentin 400 MG Capsule GT ×4 (08:46→21:49)
[2021-02-07] MEDS: Polyethylene Glycol 3350 17 GM PACKET GT (10:08)
[2021-02-07] MEDS: AcetaZOLAMIDE 500 MG/10 ML Vial 250 MG IV (11:11)
[2021-02-07] MEDS: Cyanocobalamin 500 MCG Tablet GT (11:17)
[2021-02-07] MEDS: guaiFENesin 10 ML UDC (200MG/10ML) GT ×3 (11:18→20:28)
[2021-02-07] MEDS: Vital AF 1.2 Cal Liquid 1,000 ML 60 ML GT (11:28)
[2021-02-07 11:50] LABS: Bedside Glucose 367 mg/dL (70-110)
--- NOTE | 2021-02-07 13:50 | PN.HOSP_ITS ---
Subjective Subjective .Patient was seen and examined. Her fever is down. Off Levophed. Objective Data Objective Data Vital Signs: Vital Signs Temp Pulse Resp BP Pulse Ox 99.2 F H 73 11 L 119/62 92 02/07/21 12:00 02/07/21 12:00 02/07/21 12:00 02/07/21 12:00 02/07/21 12:00 Oxygen Flow Rate (L/min) 60 Oxygen Delivery Method Mechanical Ventilator Weight: 84.8 kg Body Mass Index (BMI) 35.2 Intake & Output: Intake and Output for Last 24 Hours 02/05/21 02/06/21 02/07/21 23:59 23:59 23:59 Intake Total 2196.09 / 2208.07 1368.08 / 1483.28 2388.67 / 2388.67 Output Total 2055 / 2055 1265 / 1265 650 / 650 Balance 141.09 / 153.07 103.08 / 218.28 1738.67 / 1738.67 Lab / Micro Data Result Diagrams: 02/07/21 04:20 02/07/21 04:20 Labs: Laboratory Results - last 24 hr 02/06/21 16:57: POC Glucose 224 H 02/06/21 20:10: POC Glucose 226 H 02/07/21 04:20: WBC 10.3, RBC 4.08 L, Hgb 11.4 L, Hct 37.4, MCV 91.7, MCH 27.9, MCHC 30.5 L, RDW Std Deviation 43.8, RDW Coeff of Jay 13.0, Plt Count 136 L, MPV 10.4, Immature Gran % (Auto) 2.300 H, Neut % (Auto) 84.7 H, Lymph % (Auto) 9.0 L , [place] % (Auto) 2.6, Eos % (Auto) 1.2, Baso % (Auto) 0.2, Absolute Neuts (auto) 8.7 H, Absolute Lymphs (auto) 0.92, Nucleated RBC % 0.2 02/07/21 04:20: Sodium 144, Potassium 4.3, Chloride 105, Carbon Dioxide 40.0 H, Anion Gap -1 L, BUN 40 H, Creatinine 0.58, Estim Creat Clear Calc 78.81, Est GFR (MDRD) Af Amer 138, Est GFR (MDRD) Non-Af 114, BUN/Creatinine Ratio 69.4 H, Glucose 309 H, Calcium 7.5 L, Total Bilirubin 0.40, AST 61 H, ALT 51, Alkaline Phosphatase 135 H, Total Protein 6.7, Albumin 1.8 L, Globulin 4.9 H, Albumin/Globulin Ratio 0.4 L 02/07/21 06:18: POC Glucose 324 H 02/07/21 11:07: POC Glucose 367 H Micro: Microbiology 02/02/21 13:20 Sputum, Induced/Lukens Gram Stain - Final 02/02/21 13:20 Sputum, Induced/Lukens Respiratory Culture - Final Staphylococcus aureus Streptococcus pneumoniae 02/02/21 14:10 Urine Catheter - Nichole Urine Culture - Final Escherichia coli 01/28/21 17:00 Blood Culture (Wb) - Anticubital Left Blood Culture - Final No growth in 5 days. 01/28/21 16:55 Blood Culture (Wb) - Left Hand Blood Culture - Final No growth in 5 days. 01/28/21 17:00 Mucosa - Nose SARS-CoV-2 Antigen (Rapid) - Final SARS-CoV-2 (COVID 19) Physical Exam Narrative General: Sedated. HEENT: Atraumatic, PERRLA, EOMI, Normocephalic Oral: ET and OG tube. Neck: Supple, No JVD, Negative Carotid Bruits Lungs: On mechanical ventilator. Cardiovascular: , Normal S1, Normal S2, No murmurs Abdomen: Bowel Sounds t, Soft, Non Tender, Non-Distended : UOP: 1200 mL daily. No renal angle tenderness. No suprapubic tenderness. Extremities: No edema, Capillary Refill Less than 3 Seconds Skin: No rashes, No breakdown Musculoskeletal: No Tenderness to Palpation of Joints or Extremities Neurological:sedated Psych/Mental Status: Sedated Assessment & Plan Assessment/Plan (1) COVID-19: (2) Acute and chronic respiratory failure with hypoxia: PLAN: 1.Acute hypoxic respiratory failure secondary to COVID-19 pneumonia/MSSA and strep pneumonia Patient was intubated on 02/03/21. Continues to have fever Off Levophed Continue on propofol, fentanyl, IV Levaquin 2.Diabetes mellitus type 2 uncontrolled with hyperglycemia Continue on increased Lantus, Humalog 25 units 3 times daily 3.Septic shock secondary to #1 -acute COVID-19 pneumonia/MSSA/strep pneumonia/E. coli UTI, resolved Blood cultures x5 have been negative 4. Rest of her chronic medical conditions including history of breast CA, status post mastectomy/hyperlipidemia/depression/obesity?remain stable Home med list reviewed Charges/Coding Visit Charges Inpatient E&M: 56622 Subs Hosp L3
[2021-02-07 16:00] LABS: Bedside Glucose 336 mg/dL (70-110)
[2021-02-07] MEDS: Atorvastatin Calcium 20 MG Tablet GT (20:28)
[2021-02-07] MEDS: Famotidine 200 MG/20 ML MDV 20 MG in 0.9% Normal Saline (Pres. free 8 ML 300 MG IV (20:30)
[2021-02-07 20:56] LABS: Bedside Glucose 269 mg/dL (70-110)
[2021-02-08] VITALS (34 sets, daily range): BP systolic 103–168; BP diastolic 56–74; PULSE 80–123; RESP 11–25; TEMP 37.7–38.9; O2SAT 88–93
[2021-02-08] MEDS: Acetaminophen 650 MG/20 ML UDC GT ×3 (01:24→17:47)
[2021-02-08] MEDS: guaiFENesin 10 ML UDC (200MG/10ML) GT ×6 (01:24→21:38)
[2021-02-08 03:18] LABS: Absolute Lymphocyte Count 1.54 X10^3/uL (0.83-4.51); Absolute Neutrophil Count 15.3 X10^3/uL (2.0-7.7); Basophil# 0.05 X10^3/uL; Basophil% 0.3 % (0-1); Eosinophil# 0.18 X10^3/uL; Hematocrit 38.5 % (37-47); Lymphocyte # 1.54 X10^3/ul (0.83-4.51); Lymphocyte % 8.6 % (19-41); Mean Corp Hgb Conc 31.2 g/dL (32-36); Mean Corpuscular Hgb 28.2 pg (27.0-32.0); Mean Corpuscular Volume 90.4 fL (81-99); Monocyte# 0.37 X10^3/uL; Monocyte% 2.1 % (0-10); NRBC Flagged by Analyzer 0.2 % (0-5); Neutrophil # 15.34 X10^3/uL (2.7-7.7); Neutrophil % 85.8 % (47-70); Platelet Count 176 K/mm3 (150-450); RBC Distribution Width CV 13.2 % (11.6-14.6); RBC Distribution Width SD 43.5 fl (35.1-43.9); Red Blood Count 4.26 M/mm3 (4.2-5.4); White Blood Count 17.9 K/mm3 (4.4-11.0)
[2021-02-08 03:40] LABS: ALB/GLOB Ratio 0.4 RATIO (0.9-2.4); AST(SGOT) 54 U/L (15-37); Alanine Aminotransfer ALT/SGPT 49 U/L (13-56); Albumin, Serum 1.7 g/dL (3.2-5.0); Alkaline Phosphatase 137 U/L (45-117); Anion Gap 3 (5-15); BUN 42 mg/dL (7-18); BUN/Creat Ratio 59.2 RATIO (10-20); Calcium,Total 7.8 mg/dL (8.5-10.1); Chloride 103 mmol/L (98-107); Creatinine, Serum 0.71 mg/dL (0.55-1.02); EST Glomerular Filtration Rate 89 mL/min (>60); Est Glom Filt Rate - Afr Amer 108 mL/min (>60); Estimated Creatinine Clearance 64.38 ml/min; Globulin 4.8 g/dL (2.2-4.2); Glucose 335 mg/dL (74-106); Potassium 4.1 mmol/L (3.5-5.1); Protein, Total 6.5 g/dL (6.4-8.2); Sodium Level 139 mmol/L (136-145)
[2021-02-08] MEDS: Vital AF 1.2 Cal Liquid 1,000 ML 60 ML GT (05:27)
[2021-02-08] MEDS: CHLORHEXIDINE GLUC 2% CLOTH 1 EACH TOWELETTE TOPICAL (05:27)
--- NOTE | 2021-02-08 07:43 | PN.CC_ITS ---
Assessment & Plan Assessment/Plan (1) Acute and chronic respiratory failure with hypoxia: (2) COVID-19: PLAN: RECOMMENDATIONS: 1. Continue to wean FiO2 and PEEP to maintain oxygen saturations at or above 90%. 2. Attempt to maintain plateau pressures less than 30. Potentially wean PEE P later today 3. Increase Lantus secondary to hyperglycemia 4. Continue antimicrobials. 5. Continue to give Lasix pending labs 6. Continue tube feeds as tolerated. 7. Completed Decadron course. Monitor blood sugars closely 8. Continue appropriate ICU prophylaxis. IMPRESSIONS: 1. Acute hypoxemic respiratory failure secondary to COVID-19 pneumonia The patient presented to the hospital with approximately 2 weeks of symptoms. She was outside of the window to receive remdesivir. Although the patient was maintained on noninvasive positive pressure ventilatory support initially, she continued to decompensate from a respiratory perspective, eventually requiring intubation on February 02. She will be continued on assist control mode of mechanical ventilation with FiO2 and PEEP weaned to maintain saturations at or above 90%. Goal to maintain plateau pressures less than 30. Completed Decadron therapy. Tube feeds will be continued. Twice daily Lovenox will be continued. IV Lasix will be administered today as well. Potentially wean PEEP if able to drop to 50% FiO2. Patient does appear to be having a lymphocytic reaction on differential, possibly indicating an immune response to COVID-19 2. E. coli cystitis Continue antimicrobials as ordered to complete 7-day treatment course. 3. Diabetes mellitus/history of breast CA/hypertension/obesity/hyperlipidemia Complicates care, management, recovery and prognosis. Continue Lantus and sliding scale insulin coverage. Mobilize patient as tolerated. TIME: 32 minutes of critical care time, independent of procedures, was spent addressing the patient's acute hypoxemic respiratory failure secondary to COVID- 19 pneumonia, E. coli cystitis, review of all data and collaboration with the care team. (5:45 AM to 6:45 AM) Subjective Subjective Patient did okay overnight. Patient was noted to have a desaturation episode associated with endotracheal secretions overnight. Patient has been less responsive, but sedation was not changed secondary to concerns for vent dyssynchrony. Patient continues to tolerate tube feeds. Patient's last bowel movement was on February 06. Objective Data Objective Data Vital Signs: Vital Signs Temp Pulse Resp BP Pulse Ox 37.9 C H 91 12 126/69 H 90 02/08/21 07:00 02/08/21 07:00 02/08/21 07:00 02/08/21 07:00 02/08/21 07:00 Oxygen Flow Rate (L/min) 60 Oxygen Delivery Method Mechanical Ventilator Weight: 84.2 kg Body Mass Index (BMI) 35.2 Intake & Output: Intake and Output for Last 24 Hours 02/06/21 02/07/21 02/08/21 23:59 23:59 23:59 Intake Total 1368.08 / 1483.28 3360.67 / 3375.87 651.2 / 651.2 Output Total 1265 / 1265 1775 / 1775 275 / 275 Balance 103.08 / 218.28 1585.67 / 1600.87 376.2 / 376.2 Lab / Micro Data Result Diagrams: 02/08/21 03:10 02/08/21 03:10 Labs: Laboratory Results - last 24 hr 02/07/21 11:07: POC Glucose 367 H 02/07/21 15:29: POC Glucose 336 H 02/07/21 20:48: POC Glucose 269 H 02/08/21 03:10: WBC 17.9 H, RBC 4.26, Hgb 12.0, Hct 38.5, MCV 90.4, MCH 28.2, MCHC 31.2 L, RDW Std Deviation 43.5, RDW Coeff of Jay 13.2, Plt Count 176, MPV 11.0, Immature Gran % (Auto) 2.200 H, Neut % (Auto) 85.8 H, Lymph % (Auto) 8.6 L , [place] % (Auto) 2.1, Eos % (Auto) 1.0, Baso % (Auto) 0.3, Absolute Neuts (auto) 15.3 H, Absolute Lymphs (auto) 1.54, Nucleated RBC % 0.2 02/08/21 03:10: Sodium 139, Potassium 4.1, Chloride 103, Carbon Dioxide 33.0 H, Anion Gap 3 L, BUN 42 H, Creatinine 0.71, Estim Creat Clear Calc 64.38, Est GFR (MDRD) Af Amer 108, Est GFR (MDRD) Non-Af 89, BUN/Creatinine Ratio 59.2 H, Glucose 335 H, Calcium 7.8 L, Total Bilirubin 0.50, AST 54 H, ALT 49, Alkaline Phosphatase 137 H, Total Protein 6.5, Albumin 1.7 L, Globulin 4.8 H, Albumin/Globulin Ratio 0.4 L Micro: Microbiology 02/06/21 13:30 Blood Culture (Wb) - Neck Blood Culture - Preliminary No growth in 48 hours. 02/02/21 13:20 Sputum, Induced/Lukens Gram Stain - Final 02/02/21 13:20 Sputum, Induced/Lukens Respiratory Culture - Final Staphylococcus aureus Streptococcus pneumoniae 02/02/21 14:10 Urine Catheter - Nichole Urine Culture - Final Escherichia coli 01/28/21 17:00 Blood Culture (Wb) - Anticubital Left Blood Culture - Final No growth in 5 days. 01/28/21 16:55 Blood Culture (Wb) - Left Hand Blood Culture - Final No growth in 5 days. 01/28/21 17:00 Mucosa - Nose SARS-CoV-2 Antigen (Rapid) - Final SARS-CoV-2 (COVID 19) Physical Exam Const Constitutional Narrative: Good vent synchrony noted. RASS -2 General Appearance: well developed, intubated and patient mechanically vent ilated; Negative for in distress HEENT normocephalic, head/scalp atraumatic and moist oral mucous membranes Eyes PERRL, EOMs intact bilaterally, conjunctivae normal and no scleral icterus Neck full ROM Lymph Lymphatic: no lymphadenopathy noted Resp normal respiratory effort and no use of accessory muscles Resp Narrative: Rhonchi improved with suctioning Auscultation: diminished lung sounds; Negative for rales, rhonchi or wheezes Cardio regular rate, regular rhythm, S1 normal heart sound, S2 normal heart sound, no murmurs, no rub and no gallops GI normal to inspection, nondistended, normoactive bowel sounds Extremity General Extremity: edema bilateral (1+); Negative for clubbing Skin no rashes or lesions noted Neuro no focal motor deficits Charges/Coding Procedures Hospitalists Procedures: 06762 Critial Care 1st Hr
[2021-02-08] MEDS: Propofol 10MG/Ml 1,000 MG/100 ML Bottle 7.7 MG CONT INF (07:59)
[2021-02-08] MEDS: Insulin Lispro 100 UNIT/ML INSULN.PEN 25 UNIT SC ×3 (08:04→15:58)
[2021-02-08] MEDS: Insulin Lispro 100 UNIT/ML INSULN.PEN SC ×4 (08:04→21:38)
[2021-02-08] MEDS: Chlorhexidine 15 ML PO ×2 (08:07→21:38)
[2021-02-08] MEDS: Furosemide 40 MG/4 ML Vial IV (08:14)
[2021-02-08] MEDS: Enoxaparin 30 MG/0.3 ML Syringe SC ×2 (08:14→21:39)
[2021-02-08] MEDS: Gabapentin 400 MG Capsule GT ×3 (08:18→21:40)
[2021-02-08] MEDS: FLUoxetine 20 MG Capsule 40 MG GT (08:18)
[2021-02-08] MEDS: Cyanocobalamin 500 MCG Tablet GT (08:19)
[2021-02-08] MEDS: Famotidine 200 MG/20 ML MDV 20 MG in 0.9% Normal Saline (Pres. free 8 ML 300 MG IV ×2 (08:21→21:40)
[2021-02-08] MEDS: Nystatin Powder 15gm Bottle 1 APPLIC TOPICAL ×2 (08:21→21:40)
[2021-02-08] MEDS: levoFLOXacin IV 750 MG/150 ML BAG 100 MG IV (08:21)
[2021-02-08] MEDS: Anastrozole 1 MG TABLET PO (08:31)
--- NOTE | 2021-02-08 10:30 | CASEMGMT ---
Addendum entered by Joslyn Marrufo 02/08/21 15:00: Pt's is here now visiting w/pt. SW spoke w/ in person, offered support. SW will continue to follow. MARÍA Harmon Original Note: SW participated in rounds this morning. SW called to offer support. states he is fighting depression. He states he and his have been for 20 years, and pt is his best friend. He states has 3 sons, is estranged from two. However, they have been reaching out to him. Pt states that his oldest son has been to visit him daily and has been helping him with things. 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 He states that they have been in isolation. He states this has been difficult and now having pt here and not being able to see her has been very difficult. He states he is getting over COVID too, was diagnosed on the 8th, and still is not 100%. He states he gave COVID to the pt. SW offered support to . SW asked RN if can visit, she states he can for a short visit. SW let know he can come visit for a short visit, expressed gratitude in being able to visit and will be here this afternoon. SW will continue to follow for support to . MARÍA Harmon
[2021-02-08 11:35] LABS: Bedside Glucose 402 mg/dL (70-110)
--- NOTE | 2021-02-08 12:54 | PN.HOSP_ITS ---
Subjective Subjective Patient was seen and examined. Out of Covid precautions. Still febrile. No other acute events Objective Data Objective Data Vital Signs: Vital Signs Temp Pulse Resp BP Pulse Ox 100.8 F H 100 13 110/62 89 02/08/21 12:00 02/08/21 12:00 02/08/21 12:00 02/08/21 12:00 02/08/21 12:00 Oxygen Flow Rate (L/min) 60 Oxygen Delivery Method Mechanical Ventilator Weight: 84.2 kg Body Mass Index (BMI) 35.2 Intake & Output: Intake and Output for Last 24 Hours 02/06/21 02/07/21 02/08/21 23:59 23:59 23:59 Intake Total 1368.08 / 1483.28 3360.67 / 3375.87 774.17 / 774.17 Output Total 1265 / 1265 1775 / 1775 275 / 275 Balance 103.08 / 218.28 1585.67 / 1600.87 499.17 / 499.17 Lab / Micro Data Result Diagrams: 02/08/21 03:10 02/08/21 03:10 Labs: Laboratory Results - last 24 hr 02/07/21 15:29: POC Glucose 336 H 02/07/21 20:48: POC Glucose 269 H 02/08/21 03:10: WBC 17.9 H, RBC 4.26, Hgb 12.0, Hct 38.5, MCV 90.4, MCH 28.2, MCHC 31.2 L, RDW Std Deviation 43.5, RDW Coeff of Jay 13.2, Plt Count 176, MPV 11.0, Immature Gran % (Auto) 2.200 H, Neut % (Auto) 85.8 H, Lymph % (Auto) 8.6 L , [place] % (Auto) 2.1, Eos % (Auto) 1.0, Baso % (Auto) 0.3, Absolute Neuts (auto) 15.3 H, Absolute Lymphs (auto) 1.54, Nucleated RBC % 0.2 02/08/21 03:10: Sodium 139, Potassium 4.1, Chloride 103, Carbon Dioxide 33.0 H, Anion Gap 3 L, BUN 42 H, Creatinine 0.71, Estim Creat Clear Calc 64.38, Est GFR (MDRD) Af Amer 108, Est GFR (MDRD) Non-Af 89, BUN/Creatinine Ratio 59.2 H, Glucose 335 H, Calcium 7.8 L, Total Bilirubin 0.50, AST 54 H, ALT 49, Alkaline Phosphatase 137 H, Total Protein 6.5, Albumin 1.7 L, Globulin 4.8 H, Albumin/Globulin Ratio 0.4 L 02/08/21 11:05: POC Glucose 402 H Micro: Microbiology 02/06/21 13:30 Blood Culture (Wb) - Neck Blood Culture - Preliminary No growth in 48 hours. 02/02/21 13:20 Sputum, Induced/Lukens Gram Stain - Final 02/02/21 13:20 Sputum, Induced/Lukens Respiratory Culture - Final Staphylococcus aureus Streptococcus pneumoniae 02/02/21 14:10 Urine Catheter - Nichole Urine Culture - Final Escherichia coli 01/28/21 17:00 Blood Culture (Wb) - Anticubital Left Blood Culture - Final No growth in 5 days. 01/28/21 16:55 Blood Culture (Wb) - Left Hand Blood Culture - Final No growth in 5 days. 01/28/21 17:00 Mucosa - Nose SARS-CoV-2 Antigen (Rapid) - Final SARS-CoV-2 (COVID 19) Physical Exam Narrative General: Sedated, intubated HEENT: Atraumatic, PERRLA, EOMI, Normocephalic Oral: ET and OG tube. Neck: Supple Lungs: On mechanical ventilator. Cardiovascular: , Normal S1, Normal S2, No murmurs Abdomen: Bowel Sounds t, Soft, Non Tender, Non-Distended Extremities: Bilateral pedal edema , trace Skin: No rashes, No breakdown Musculoskeletal: No Tenderness to Palpation of Joints or Extremities Neurological:sedated Psych/Mental Status: Sedated Assessment & Plan Assessment/Plan (1) COVID-19: (2) Acute and chronic respiratory failure with hypoxia: PLAN: 1.Acute hypoxic respiratory failure secondary to COVID-19 pneumonia/MSSA and strep pneumonia Patient was intubated on 02/03/21. Continues to have fever Off Levophed Continue on propofol, fentanyl, IV Levaquin 2.Diabetes mellitus type 2 uncontrolled with hyperglycemia Continue on increased Lantus of 45 units, Humalog 25 units 3 times daily 3.Septic shock secondary to #1 -acute COVID-19 pneumonia/MSSA/strep pneumonia/E. coli UTI, resolved. Blood cultures x5 have been negative 4. Rest of her chronic medical conditions including history of breast CA, status post mastectomy/hyperlipidemia/depression/obesity?remain stable Home med list reviewed Charges/Coding Visit Charges Inpatient E&M: 95623 Subs Hosp L2
--- NOTE | 2021-02-08 13:25 | RAD_ITS ---
STUDY: X-RAY CHEST REASON FOR EXAM: Female, 60 years old. Hypoxia TECHNIQUE: Single frontal view of the chest. COMPARISON: 02/03/2021 FINDINGS: There is an endotracheal tube in place terminating 3.0 cm above the sergey. There is a right-sided central venous catheter in place terminating within the expected region of the superior vena cava. There is an enteric tube in place terminating caudal to the inferior margin of the image. There are stable bilateral patchy opacities within the mid and lower lungs. Normal size heart. Normal mediastinum and lorelei. Normal visualized pulmonary arteries. Normal visualized aortic arch and descending thoracic aorta. There are diffuse degenerative changes of the visualized thoracic spine. Normal visualized ribs, clavicles, and shoulders. There is no demonstrated abnormality of the visualized soft tissue structures of the upper abdomen. RAD/Chest 1 View (Portable) IMPRESSION: Stable bilateral patchy opacities concerning for multifocal pneumonia. Electronically Signed: Bere Morgan MD at 14:00 EDT Tel , Service support ,
--- NOTE | 2021-02-08 15:12 | NURSING ---
Mart @ bedside for visit
--- NOTE | 2021-02-08 15:54 | CHAPLAIN ---
Type of Pastoral Visit _x__ Initial Visit ___ Follow-up Visit ___ On-call Visit ___ General Patient Visit ___ Spiritual Assessment ___ Family Conference ___ Bereavement ___ Rapid Response ___ Code Blue ___ Other (describe below) Pastoral Care Referral From ___ Patient _x__ Family _x__ Nurse ___ Physician ___ Mud Analysis Well Logging Operator ___ Director Of Estate ___ Other (describe below) Sacrament/Intervention _x__ Active listening ___ Anointing ___ Moravian ___ Bereavement ___ Communion _x__ Yanelis exploration ___ ___ Life review _x__ Prayer ___ Reconciliation ___ Sacrament of Sick _x__ Supportive presence ___ Wedding ___ Other (describe below) Pastoral Comments patient is on vent; RN notified this diploma pharmacy technician that spouse would be coming and then that he had arrived; support for spouse recommended by RN; spouse was very talkative and open about his anxiety for patient's health and recovery; listened to spouse express his emotions and spiritual questions; prayer and presence given
[2021-02-08 16:11] LABS: Bedside Glucose 253 mg/dL (70-110)
[2021-02-08] MEDS: Propofol 10MG/Ml 1,000 MG/100 ML Bottle 5.1 MG CONT INF (17:48)
[2021-02-08] MEDS: Atorvastatin Calcium 20 MG Tablet GT (21:39)
[2021-02-08] MEDS: Senna/Docusate Sodium 1 Tablet 2 TABLET GT (21:40)
[2021-02-09] VITALS (35 sets, daily range): BP systolic 98–154; BP diastolic 56–92; PULSE 118–139; RESP 18–28; TEMP 37–39.9; O2SAT 89–96
[2021-02-09] MEDS: Vital AF 1.2 Cal Liquid 1,000 ML 60 ML GT ×2 (02:14→16:13)
[2021-02-09] MEDS: guaiFENesin 10 ML UDC (200MG/10ML) GT ×5 (02:22→21:52)
[2021-02-09 02:36] LABS: Bedside Glucose 214 mg/dL (70-110)
[2021-02-09] MEDS: Acetaminophen 650 MG/20 ML UDC GT ×3 (03:46→21:48)
[2021-02-09] MEDS: Propofol 10MG/Ml 1,000 MG/100 ML Bottle 5.1 MG CONT INF (03:58)
[2021-02-09 04:52] LABS: Absolute Lymphocyte Count 2.17 X10^3/uL (0.83-4.51); Basophil# 0.08 X10^3/uL; Basophil% 0.3 % (0-1); Eosinophils% 0.4 % (0-5); Hematocrit 39.1 % (37-47); Hemoglobin 12.6 g/dL (12.0-15.0); Lymphocyte # 2.17 X10^3/ul (0.83-4.51); Lymphocyte % 8.4 % (19-41); Mean Corp Hgb Conc 32.2 g/dL (32-36); Mean Corpuscular Hgb 28.2 pg (27.0-32.0); Mean Corpuscular Volume 87.5 fL (81-99); Mean Platelet Vol. 11.1 fl (6.2-12.0); Monocyte% 2.3 % (0-10); NRBC Flagged by Analyzer 0.3 % (0-5); Neutrophil # 21.96 X10^3/uL (2.7-7.7); Neutrophil % 84.8 % (47-70); POSITIVE DIFFERENTIAL YES; Platelet Count 239 K/mm3 (150-450); RBC Distribution Width CV 13.8 % (11.6-14.6); RBC Distribution Width SD 43.2 fl (35.1-43.9); Red Blood Count 4.47 M/mm3 (4.2-5.4); White Blood Count 25.9 K/mm3 (4.4-11.0)
[2021-02-09 05:08] LABS: Differential Indicated SCAN CRITERIA MET
[2021-02-09 05:14] LABS: ALB/GLOB Ratio 0.4 RATIO (0.9-2.4); AST(SGOT) 50 U/L (15-37); Alanine Aminotransfer ALT/SGPT 42 U/L (13-56); Albumin, Serum 1.7 g/dL (3.2-5.0); Alkaline Phosphatase 135 U/L (45-117); Anion Gap 4 (5-15); BUN 47 mg/dL (7-18); BUN/Creat Ratio 59.1 RATIO (10-20); Chloride 100 mmol/L (98-107); EST Glomerular Filtration Rate 78 mL/min (>60); Est Glom Filt Rate - Afr Amer 95 mL/min (>60); Estimated Creatinine Clearance 57.14 ml/min; Globulin 4.8 g/dL (2.2-4.2); Glucose 407 mg/dL (74-106); Potassium 4.3 mmol/L (3.5-5.1); Protein, Total 6.5 g/dL (6.4-8.2); Sodium Level 136 mmol/L (136-145)
[2021-02-09 06:10] LABS: Differential Comment SCANNED; Polychromasia RARE
[2021-02-09] MEDS: Furosemide 40 MG/4 ML Vial IV ×2 (06:32→17:28)
[2021-02-09] MEDS: Insulin Lispro 100 UNIT/ML INSULN.PEN SC ×4 (07:01→23:07)
[2021-02-09] MEDS: Insulin Lispro 100 UNIT/ML INSULN.PEN 25 UNIT SC ×3 (07:02→17:43)
[2021-02-09 07:56] LABS: Bedside Glucose 443 mg/dL (70-110)
--- NOTE | 2021-02-09 09:51 | PCM.PN.ID ---
Physical Exam Narrative Remains on vent, having diarrhea, cdiff sent. Continued fever. Const no apparent distress Resp Effort and Inspection: mechanically ventilated Auscultation: diminished lung sounds Cardio regular rate and regular rhythm GI normal to inspection, nondistended, normoactive bowel sounds Skin no rashes or lesions noted ID ID: Route of nutrition/ use of supplements: [] Nutritional Intake: [] IV Site: [] Nichole Catheter: [] Assessment & Plan Assessment/Plan (1) Acute and chronic respiratory failure with hypoxia: (2) COVID-19: PLAN: Sx for 2 weeks on presentation. Has been vaccinated. On vent, off pressors, still with fever today. Off dex. Sputum with mssa and strep, ucx with ecoli. On levaquin now, zosyn stopped. CT neg for PE. Has been over 20 days since symptoms started, out of isolation. Cdiff pending with diarrhea. Will check bcx x2. Will follow, d/w nursing
--- NOTE | 2021-02-09 10:21 | PN.CC_ITS ---
Assessment & Plan Assessment/Plan (1) Acute and chronic respiratory failure with hypoxia: (2) COVID-19: PLAN: RECOMMENDATIONS: 1. Continue to wean FiO2 and PEEP to maintain oxygen saturations at or above 90%. 2. Attempt to maintain plateau pressures less than 30. 3. Increase Lantus secondary to hyperglycemia 4. Continue antimicrobials. 5. Continue to give Lasix pending labs 6. Continue tube feeds as tolerated. Send C. difficile 7. Completed Decadron course. Monitor blood sugars closely 8. Continue appropriate ICU prophylaxis. IMPRESSIONS: 1. Acute hypoxemic respiratory failure secondary to COVID-19 pneumonia The patient presented to the hospital with approximately 2 weeks of symptoms. She was outside of the window to receive remdesivir. Although the patient was maintained on noninvasive positive pressure ventilatory support initially, she continued to decompensate from a respiratory perspective, malcolm ntually requiring intubation on February 02. She will be continued on assist control mode of mechanical ventilation with FiO2 and PEEP weaned to maintain saturations at or above 90%. Goal to maintain plateau pressures less than 30. Completed Decadron therapy. Tube feeds will be continued. Twice daily Lovenox will be continued. IV Lasix will be administered today as well. Unclear if patient's increased oxygen requirements are related to fever. Patient is having watery bowel movements and is on antibiotics. C. difficile will be sent. Attempting to avoid transition to Precedex therapy as this could complicate fever curve. Nichole catheter will be replaced to be sure that accurate temperatures are being obtained. 2. E. coli cystitis Continue antimicrobials as ordered to complete 7-day treatment course. 3. Diabetes mellitus/history of breast CA /hypertension/obesity/hyperlipidemia Complicates care, management, recovery and prognosis. Continue Lantus and sliding scale insulin coverage. Mobilize patient as tolerated. Addendum 5:21 PM Called the patient's room at approximately 4:50 PM secondary to desaturation despite increasing PEEP and 80% FiO2. Attempted lavage with little improvement. A chest x-ray was obtained showing no pneumothorax. No crepitus was noted. Patient eventually was transitioned over to APRV. Following transition to APRV, patient had another aggressive lavage and there appears to have been a mucous plug removed. Patient has somewhat stabilized. TIME: 80 minutes of critical care time, independent of procedures, was spent addressing the patient's acute hypoxemic respiratory failure secondary to COVID- 19 pneumonia, E. coli cystitis, review of all data and collaboration with the care team. (8 AM to 9 AM, 2 PM to 3 PM, 4:50 PM to 5:20 PM) Subjective Subjective Patient continues to have several bowel movements per day. These are described as liquid. Patient did have significant fever overnight with worsening oxygenation requiring increasing PEEP. Patient has remained hemodynamically stable. Blood sugars have been elevated intermittently. Objective Data Objective Data Vital Signs: Vital Signs Temp Pulse Resp BP Pulse Ox 39.1 C H 131 H 26 H 118/85 H 93 02/09/21 09:00 02/09/21 09:00 02/09/21 09:00 02/09/21 09:00 02/09/21 09:00 Oxygen Flow Rate (L/min) 13 Oxygen Delivery Method Mechanical Ventilator Weight: 85.3 kg Body Mass Index (BMI) 35.2 Intake & Output: Intake and Output for Last 24 Hours 02/07/21 02/08/21 02/09/21 23:59 23:59 23:59 Intake Total 3360.67 / 3375.87 2153.70 / 2261.20 1525.62 / 1525.62 Output Total 1775 / 1775 1425 / 1425 500 / 500 Balance 1585.67 / 1600.87 728.70 / 836.20 1025.62 / 1025.62 Lab / Micro Data Result Diagrams: 02/09/21 04:10 02/09/21 04:10 Labs: Laboratory Results - last 24 hr 02/08/21 11:05: POC Glucose 402 H 02/08/21 15:55: POC Glucose 253 H 02/08/21 21:35: POC Glucose 214 H 02/09/21 04:10: WBC 25.9 H, RBC 4.47, Hgb 12.6, Hct 39.1, MCV 87.5, MCH 28.2, MCHC 32.2, RDW Std Deviation 43.2, RDW Coeff of Jay 13.8, Plt Count 239, MPV 11.1, Immature Gran % (Auto) 3.800 H, Neut % (Auto) 84.8 H, Lymph % (Auto) 8.4 L , [place] % (Auto) 2.3, Eos % (Auto) 0.4, Baso % (Auto) 0.3, Absolute Neuts (auto) 22.0 H, Absolute Lymphs (auto) 2.17, Nucleated RBC % 0.3, Differential Comment SCANNED, Polychromasia RARE 02/09/21 04:10: Sodium 136, Potassium 4.3, Chloride 100, Carbon Dioxide 32.0, Anion Gap 4 L, BUN 47 H, Creatinine 0.80, Estim Creat Clear Calc 57.14, Est GFR (MDRD) Af Amer 95, Est GFR (MDRD) Non-Af 78, BUN/Creatinine Ratio 59.1 H, Glucose 407 H, Calcium 8.0 L, Total Bilirubin 0.70, AST 50 H, ALT 42, Alkaline Phosphatase 135 H, Total Protein 6.5, Albumin 1.7 L, Globulin 4.8 H, Albumin/Globulin Ratio 0.4 L 02/09/21 06:59: POC Glucose 443 H Micro: Microbiology 02/09/21 06:50 Stool C. difficile DNA Amplification - Final 02/06/21 13:30 Blood Culture (Wb) - Neck Blood Culture - Preliminary No growth in 48 hours. 02/02/21 13:20 Sputum, Induced/Lukens Gram Stain - Final 02/02/21 13:20 Sputum, Induced/Lukens Respiratory Culture - Final Staphylococcus aureus Streptococcus pneumoniae 02/02/21 14:10 Urine Catheter - Nichole Urine Culture - Final Escherichia coli 01/28/21 17:00 Blood Culture (Wb) - Anticubital Left Blood Culture - Final No growth in 5 days. 01/28/21 16:55 Blood Culture (Wb) - Left Hand Blood Culture - Final No growth in 5 days. 01/28/21 17:00 Mucosa - Nose SARS-CoV-2 Antigen (Rapid) - Final SARS-CoV-2 (COVID 19) Radiography Diagnostic Testing: Radiology Impression Chest X-Ray 02/08/21 13:25 IMPRESSION: Stable bilateral patchy opacities concerning for multifocal pneumonia. Electronically Signed: Bere Morgan MD at 14:00 EDT Tel , Service support , Physical Exam Const Constitutional Narrative: Good vent synchrony noted. RASS -3 General Appearance: well developed, intubated and patient mechanically ventilated; Negative for in distress HEENT normocephalic, head/scalp atraumatic and moist oral mucous membranes Eyes PERRL, EOMs intact bilaterally, conjunctivae normal and no scleral icterus Neck full ROM Lymph Lymphatic: no lymphadenopathy noted Resp normal respiratory effort and no use of accessory muscles Resp Narrative: Little secretions noted during my suctioning Auscultation: diminished lung sounds; Negative for rales, rhonchi or wheezes Cardio regular rate, regular rhythm, S1 normal heart sound, S2 normal heart sound, no murmurs, no rub and no gallops GI normal to inspection, nondistended, normoactive bowel sounds Extremity General Extremity: edema bilateral (1+); Negative for clubbing Skin no rashes or lesions noted Neuro no focal motor deficits Charges/Coding Procedures Hospitalists Procedures: 31849 Critial Care 1st Hr Multi Select Codes Hospitalists' Procedures Procedures: 88544 Critial Care Addl 30 Min
[2021-02-09] MEDS: FLUoxetine 20 MG Capsule 40 MG GT (10:35)
[2021-02-09] MEDS: Enoxaparin 30 MG/0.3 ML Syringe SC ×2 (10:35→23:06)
[2021-02-09] MEDS: Gabapentin 400 MG Capsule GT ×3 (10:36→21:49)
[2021-02-09] MEDS: Nystatin Powder 15gm Bottle 1 APPLIC TOPICAL ×2 (10:36→21:49)
[2021-02-09] MEDS: Chlorhexidine 15 ML PO ×2 (10:37→21:50)
[2021-02-09] MEDS: Anastrozole 1 MG TABLET PO (10:37)
[2021-02-09] MEDS: Cyanocobalamin 500 MCG Tablet GT (10:38)
--- NOTE | 2021-02-09 10:43 | PCM.PN.HOSP ---
Subjective Subjective Patient was seen and examined. Remains febrile. Stool for C. difficile is negative. Objective Data Objective Data Vital Signs: Vital Signs Temp Pulse Resp BP Pulse Ox 102.4 F H 131 H 26 H 118/85 H 93 02/09/21 09:00 02/09/21 09:00 02/09/21 09:00 02/09/21 09:00 02/09/21 09:00 Oxygen Flow Rate (L/min) 13 Oxygen Delivery Method Mechanical Ventilator Weight: 85.3 kg Body Mass Index (BMI) 35.2 Intake & Output: Intake and Output for Last 24 Hours 02/07/21 02/08/21 02/09/21 23:59 23:59 23:59 Intake Total 3360.67 / 3375.87 2153.70 / 2261.20 1525.62 / 1525.62 Output Total 1775 / 1775 1425 / 1425 500 / 500 Balance 1585.67 / 1600.87 728.70 / 836.20 1025.62 / 1025.62 Lab / Micro Data Result Diagrams: 02/09/21 04:10 02/09/21 04:10 Labs: Laboratory Results - last 24 hr 02/08/21 11:05: POC Glucose 402 H 02/08/21 15:55: POC Glucose 253 H 02/08/21 21:35: POC Glucose 214 H 02/09/21 04:10: WBC 25.9 H, RBC 4.47, Hgb 12.6, Hct 39.1, MCV 87.5, MCH 28.2, MCHC 32.2, RDW Std Deviation 43.2, RDW Coeff of Jay 13.8, Plt Count 239, MPV 11.1, Immature Gran % (Auto) 3.800 H, Neut % (Auto) 84.8 H, Lymph % (Auto) 8.4 L, [place] % (Auto) 2.3, Eos % (Auto) 0.4, Baso % (Auto) 0.3, Absolute Neuts (auto) 22.0 H, Absolute Lymphs (auto) 2.17, Nucleated RBC % 0.3, Differential Comment SCANNED, Polychromasia RARE 02/09/21 04:10: Sodium 136, Potassium 4.3, Chloride 100, Carbon Dioxide 32.0, Anion Gap 4 L, BUN 47 H, Creatinine 0.80, Estim Creat Clear Calc 57.14, Est GFR (MDRD) Af Amer 95, Est GFR (MDRD) Non-Af 78, BUN/Creatinine Ratio 59.1 H, Glucose 407 H, Calcium 8.0 L, Total Bilirubin 0.70, AST 50 H, ALT 42, Alkaline Phosphatase 135 H, Total Protein 6.5, Albumin 1.7 L, Globulin 4.8 H, Albumin/Globulin Ratio 0.4 L 02/09/21 06:59: POC Glucose 443 H Micro: Microbiology 02/09/21 06:50 Stool C. difficile DNA Amplification - Final 02/06/21 13:30 Blood Culture (Wb) - Neck Blood Culture - Preliminary No growth in 48 hours. 02/02/21 13:20 Sputum, Induced/Lukens Gram Stain - Final 02/02/21 13:20 Sputum, Induced/Lukens Respiratory Culture - Final Staphylococcus aureus Streptococcus pneumoniae 02/02/21 14:10 Urine Catheter - Nichole Urine Culture - Final Escherichia coli 01/28/21 17:00 Blood Culture (Wb) - Anticubital Left Blood Culture - Final No growth in 5 days. 01/28/21 16:55 Blood Culture (Wb) - Left Hand Blood Culture - Final No growth in 5 days. 01/28/21 17:00 Mucosa - Nose SARS-CoV-2 Antigen (Rapid) - Final SARS-CoV-2 (COVID 19) Radiography Diagnostic Testing: Radiology Impression Chest X-Ray 02/08/21 13:25 IMPRESSION: Stable bilateral patchy opacities concerning for multifocal pneumonia. Electronically Signed: Bere Morgan MD at 14:00 EDT Tel , Service support , Physical Exam Narrative General: Sedated, intubated HEENT: Atraumatic, PERRLA, EOMI, Normocephalic Oral: ET and OG tube. Neck: Supple Lungs: On mechanical ventilator. Cardiovascular: , Normal S1, Normal S2, No murmurs Abdomen: Bowel Sounds t, Soft, Non Tender, Non-Distended Extremities: Bilateral pedal edema , trace Skin: No rashes, No breakdown Musculoskeletal: No Tenderness to Palpation of Joints or Extremities Neurological:sedated Psych/Mental Status: Sedated Assessment & Plan Assessment/Plan (1) COVID-19: (2) Acute and chronic respiratory failure with hypoxia: PLAN: 1.Acute hypoxic respiratory failure secondary to COVID-19 pneumonia/MSSA and strep pneumonia Oxygen requirements remain high, remains intubated Patient was intubated on 02/03/21. Continues to have fever Continue on breathing treatments, propofol, fentanyl, IV Levaquin 2.Diabetes mellitus type 2 uncontrolled with hyperglycemia Continue on increased Lantus of 50 units, Humalog 25 units 3 times daily 3.Septic shock secondary to #1 -acute COVID-19 pneumonia/MSSA/strep pneumonia/E. coli UTI, resolved. Blood cultures x5 have been negative 4. Rest of her chronic medical conditions including history of breast CA, status post mastectomy/hyperlipidemia/depression/obesity?remain stable Home med list reviewed Charges/Coding Visit Charges Inpatient E&M: 22238 Subs Hosp L2
[2021-02-09] MEDS: CHLORHEXIDINE GLUC 2% CLOTH 1 EACH TOWELETTE TOPICAL (10:48)
[2021-02-09] MEDS: Famotidine 200 MG/20 ML MDV 20 MG in 0.9% Normal Saline (Pres. free 8 ML 330 MG IV ×2 (10:48→21:48)
[2021-02-09] MEDS: levoFLOXacin IV 750 MG/150 ML BAG 100 MG IV (10:51)
[2021-02-09 13:31] LABS: CPK Total, Creatine Kinase 53 U/L (26-192); Triglycerides 161 mg/dL
[2021-02-09 13:36] LABS: Bedside Glucose 365 mg/dL (70-110)
[2021-02-09] MEDS: Propofol 10MG/Ml 1,000 MG/100 ML Bottle 2.6 MG CONT INF (16:13)
--- NOTE | 2021-02-09 16:45 | NURSING ---
Patient dropped oxygen saturations to 50%, Dr. Amaya at bedside. Fio2 increased to 100%. RT called to bedside. This RN suctioned patient several times, nothing in return. Saturations improved on higher fi02. Chest xray and lasix ordered. Vent settings changed.
--- NOTE | 2021-02-09 17:00 | RAD_ITS ---
EXAM: XR CHEST, 1 VIEW : 1960 CLINICAL INDICATION: hypoxia TECHNIQUE: Frontal view of the chest. This report was created using [employer] report generation technology. COMPARISON: None 2020 FINDINGS: LUNGS AND PLEURAL SPACES: Diffuse bilateral airspace disease unchanged. No pneumothorax. No effusion. HEART: Unremarkable. Cardiac silhouette not enlarged. MEDIASTINUM: Central airways and mediastinal contour are unremarkable. BONES/JOINTS: Unremarkable. SOFT TISSUES: There is subcutaneous emphysema along the right shoulder. There is a questionable right apical pneumothorax although this may represent a pneumomediastinum. TUBES, LINES AND DEVICES: Endotracheal tube, nasogastric tube and right jugular catheter are in stable position. RAD/Chest 1 View (Portable) IMPRESSION: Diffuse bilateral airspace disease. There is a questionable trace apical right-sided pneumothorax or pneumomediastinum. There is subcutaneous emphysema over the right chest. Indicated further evaluation with CT scan may be beneficial. at 1733 Reported and signed by: Chucky Lozada MD Electronically Signed: Chucky Lozada MD at 17:32 EDT Tel , Service support ,
[2021-02-09 17:55] LABS: Bedside Glucose 401 mg/dL (70-110)
[2021-02-09 20:11] LABS: Allen Test Positive; Base Excess 5 mmol/L (-2 to +2); Blood Gas Specimen Type ART; FI02 100; Mode BiLevel; O2 Delivery Device Adult Vent; PO2 73 mmHG (75-100); RR 12; SITE R Radial; SO2 95 % (95-99); Total Carbon Dioxide 30 mmol/L; pH 7.46 (7.35-7.45)
--- NOTE | 2021-02-09 20:11 | CT_ITS ---
STUDY: CT CHEST WITHOUT CONTRAST REASON FOR EXAM: Female, 60 years old. possible pneumothorax RADIATION DOSAGE (If Supplied By Facility): CTDIvol = ( 18.03 ) mGy, DLP = ( 721.01 ) mGycm TECHNIQUE: Transaxial imaging was performed without the administration of intravenous contrast material. Individualized dose optimization techniques were used for this CT COMPARISON: CT scan of 01/28/2021, chest x-ray of earlier today. FINDINGS: Exam is limited by motion. Endotracheal tube terminates 2.6 cm above. Moderate lung volumes. As seen on chest x-ray, there is confirmation bilateral basal pneumothoraces. There is also confirmation of marked pneumomediastinum extends up into the neck. There are extensive diffuse bilateral opacities much worse than prior exam. No effusions. Normal heart and pericardium. Normal mediastinum. Normal hilar regions. Normal unenhanced pulmonary arteries. Normal aorta arch and descending thoracic aorta. There are multi-level degenerative changes of the thoracic spine. There is no demonstrated acute abnormality of the visualized upper abdomen. CT/Chest without Contrast IMPRESSION: As seen and reported on previous chest x-ray of earlier today, there are bilateral trace pneumothoraces. There is marked pneumomediastinum extending up into the neck. There is severe diffuse bilateral pulmonary opacity worse than prior exam. Electronically Signed: Shine Zelaya MD at 22:28 EDT , Service support ,
[2021-02-09] MEDS: Senna/Docusate Sodium 1 Tablet 2 TABLET GT (21:50)
[2021-02-09] MEDS: Atorvastatin Calcium 20 MG Tablet GT (21:51)
[2021-02-09] MEDS: 0.9% Saline Lock 10 ML Syringe IV (23:09)
[2021-02-09 23:26] LABS: Bedside Glucose 303 mg/dL (70-110)
[2021-02-10] VITALS (63 sets, daily range): BP systolic 74–118; BP diastolic 44–89; PULSE 124–147; RESP 14–38; TEMP 37.9–40.6; O2SAT 89–95
[2021-02-10] MEDS: guaiFENesin 10 ML UDC (200MG/10ML) GT ×5 (02:21→20:43)
[2021-02-10 05:03] LABS: Absolute Lymphocyte Count 3.11 X10^3/uL (0.83-4.51); Absolute Neutrophil Count 23.2 X10^3/uL (2.0-7.7); Basophil# 0.09 X10^3/uL; Basophil% 0.3 % (0-1); Eosinophil# 0.08 X10^3/uL; Eosinophils% 0.3 % (0-5); Hematocrit 40.4 % (37-47); Hemoglobin 12.9 g/dL (12.0-15.0); Lymphocyte # 3.11 X10^3/ul (0.83-4.51); Mean Corp Hgb Conc 31.9 g/dL (32-36); Mean Corpuscular Hgb 28.1 pg (27.0-32.0); Mean Platelet Vol. 10.8 fl (6.2-12.0); Monocyte# 0.66 X10^3/uL; Monocyte% 2.3 % (0-10); NRBC Flagged by Analyzer 0.3 % (0-5); Neutrophil # 23.18 X10^3/uL (2.7-7.7); Neutrophil % 81.9 % (47-70); POSITIVE DIFFERENTIAL YES; Platelet Count 264 K/mm3 (150-450); RBC Distribution Width CV 14.3 % (11.6-14.6); RBC Distribution Width SD 44.4 fl (35.1-43.9); Red Blood Count 4.59 M/mm3 (4.2-5.4); White Blood Count 28.3 K/mm3 (4.4-11.0)
[2021-02-10 05:04] LABS: Differential Indicated SCAN CRITERIA MET
[2021-02-10 05:32] LABS: Anion Gap 6 (5-15); BUN 60 mg/dL (7-18); BUN/Creat Ratio 68.1 RATIO (10-20); Calcium,Total 7.9 mg/dL (8.5-10.1); Chloride 97 mmol/L (98-107); Creatinine, Serum 0.88 mg/dL (0.55-1.02); EST Glomerular Filtration Rate 70 mL/min (>60); Est Glom Filt Rate - Afr Amer 84 mL/min (>60); Estimated Creatinine Clearance 51.94 ml/min; Glucose 470 mg/dL (74-106); Potassium 4.2 mmol/L (3.5-5.1); Sodium Level 135 mmol/L (136-145)
[2021-02-10 05:49] LABS: Anisocytosis 1+; Differential Comment SCANNED; Macrocytosis 1+; Polychromasia RARE
[2021-02-10 05:56] LABS: Allen Test Positive; Base Excess 7 mmol/L (-2 to +2); Bicarbonate 29.6 mmol/L (22-26); Blood Gas Specimen Type ART; FI02 90; Mode BiLevel; O2 Delivery Device Adult Vent; PO2 55 mmHG (75-100); RR 12; SITE L Radial; SO2 91 % (95-99); Total Carbon Dioxide 31 mmol/L; pCO2 36.4 mmHg (35-45); pH 7.52 (7.35-7.45)
--- NOTE | 2021-02-10 07:51 | PN.CC_ITS ---
Assessment & Plan Assessment/Plan (1) Acute and chronic respiratory failure with hypoxia: (2) COVID-19: PLAN: RECOMMENDATIONS: 1. Continue to wean FiO2 and PEEP to maintain oxygen saturations at or above 90%. 2. Wean P high as tolerated. Obtain chest x-ray this morning 3. Increase Lantus secondary to hyperglycemia 4. Continue antimicrobials. 5. Continue to give Lasix pending labs 6. Continue tube feeds as tolerated. 7. Completed Decadron course. Monitor blood sugars closely 8. Continue appropriate ICU prophylaxis. IMPRESSIONS: 1. Acute hypoxemic respiratory failure secondary to COVID-19 pneumonia The patient presented to the hospital with approximately 2 weeks of symptoms. She was outside of the window to receive remdesivir. Although the patient was maintained on noninvasive positive pressure ventilatory support initially, she continued to decompensate from a respiratory perspective, eventually requiring intubation on February 02. She will be continued on assist control mode of mechanical ventilation with FiO2 and PEEP weaned to maintain saturations at or above 90%. Goal to maintain plateau pressures less than 30. Completed Decadron therapy. Tube feeds will be continued. Twice daily Lovenox will be continued. IV patient with significant fever overnight, likely secondary to pneumomediastinum. Will repeat chest x-ray today. Patient still with high oxygen requirements. Will obtain a chest x-ray to be sure there is not developed a pneumothorax. 2. E. coli cystitis Continue antimicrobials as completed 7-day treatment course. 3. Diabetes mellitus/history of breast CA/hypertension/obesity/hyperlipidemia Complicates care, management, recovery and prognosis. Continue Lantus and sliding scale insulin coverage. Mobilize patient as tolerated. TIME: 34 minutes of critical care time, independent of procedures, was spent addressing the patient's acute hypoxemic respiratory failure secondary to COVID- 19 pneumonia, E. coli cystitis, review of all data and collaboration with the care team. (5:15 AM to 6:15 AM) Subjective Subjective Patient with significant difficulties overnight. to come to the bedside secondary to some hypotension. Patient has tolerated decrease in P high on APRV, but has been significantly febrile. Patient has had slightly worse crepitus and blood sugars have been elevated. Spoke with at the bedside. He understands that patient has taken a turn for the worse and would like to make her DNR Comfort Care arrest. He has requested the family be able to visit today and stated she did not observe all of this. He appears to be realistic on her prognosis, but does not want to not give her a chance. Objective Data Objective Data Vital Signs: Vital Signs Temp Pulse Resp BP Pulse Ox 39.8 C H 143 H 37 H 94/70 91 02/10/21 06:00 02/10/21 06:57 02/10/21 06:57 02/10/21 06:00 02/10/21 06:57 Oxygen Flow Rate (L/min) 13 Oxygen Delivery Method Mechanical Ventilator Weight: 83.3 kg Body Mass Index (BMI) 35.2 Intake & Output: Intake and Output for Last 24 Hours 02/08/21 02/09/21 02/10/21 23:59 23:59 23:59 Intake Total 2153.70 / 2261.20 2190.29 / 3802.79 1735.0 / 1735.0 Output Total 1425 / 1425 1680 / 1930 700 / 700 Balance 728.70 / 836.20 510.29 / 1872.79 1035.0 / 1035.0 Lab / Micro Data Result Diagrams: 02/10/21 04:45 02/10/21 04:45 Labs: Laboratory Results - last 24 hr 02/09/21 06:59: POC Glucose 443 H 02/09/21 12:51: POC Glucose 365 H 02/09/21 13:05: Total Creatine Kinase 53, Triglycerides 161 02/09/21 17:41: POC Glucose 401 H 02/09/21 23:04: POC Glucose 303 H 02/10/21 04:45: WBC 28.3 H, RBC 4.59, Hgb 12.9, Hct 40.4, MCV 88.0, MCH 28.1, MCHC 31.9 L, RDW Std Deviation 44.4 H, RDW Coeff of Jay 14.3, Plt Count 264, MPV 10.8, Immature Gran % (Auto) 4.200 H, Neut % (Auto) 81.9 H, Lymph % (Auto) 11.0 L, [place] % (Auto) 2.3, Eos % (Auto) 0.3, Baso % (Auto) 0.3, Absolute Neuts (auto) 23.2 H, Absolute Lymphs (auto) 3.11, Nucleated RBC % 0.3, Differential Comment SCANNED, Polychromasia RARE, Anisocytosis 1+, Macrocytosis 1+ 02/10/21 04:45: Sodium 135 L, Potassium 4.2, Chloride 97 L, Carbon Dioxide 32.0, Anion Gap 6, BUN 60 H, Creatinine 0.88, Estim Creat Clear Calc 51.94, Est GFR (MDRD) Af Amer 84, Est GFR (MDRD) Non-Af 70, BUN/Creatinine Ratio 68.1 H, Glucose 470 H*, Calcium 7.9 L Micro: Microbiology 02/09/21 06:50 Stool C. difficile DNA Amplification - Final 02/06/21 13:30 Blood Culture (Wb) - Neck Blood Culture - Preliminary No growth in 48 hours. 02/02/21 13:20 Sputum, Induced/Lukens Gram Stain - Final 02/02/21 13:20 Sputum, Induced/Lukens Respiratory Culture - Final Staphylococcus aureus Streptococcus pneumoniae 02/02/21 14:10 Urine Catheter - Nichole Urine Culture - Final Escherichia coli 01/28/21 17:00 Blood Culture (Wb) - Anticubital Left Blood Culture - Final No growth in 5 days. 01/28/21 16:55 Blood Culture (Wb) - Left Hand Blood Culture - Final No growth in 5 days. 01/28/21 17:00 Mucosa - Nose SARS-CoV-2 Antigen (Rapid) - Final SARS-CoV-2 (COVID 19) ABG Data ABG results: ABG 02/09/21 02/10/21 20:03 05:47 Specimen Type ART ART Sample Site R Radial L Radial pH 7.46 H 7.52 H Bicarbonate Actual 29.0 H 29.6 H Total CO2 30 31 Base Excess 5 H 7 H O2 Saturation 95 91 L O2 % 100 90 ABG pCO2 41.0 36.4 ABG pO2 73 L 55 L Roman Test Positive Positive Respiration Rate 12 12 O2 Delivery Device Adult Vent Adult Vent Vent Mode BiLevel BiLevel Clinical Comments Radiography Diagnostic Testing: Radiology Impression Chest X-Ray 02/09/21 17:00 IMPRESSION: Diffuse bilateral airspace disease. There is a questionable trace apical right-sided pneumothorax or pneumomediastinum. There is subcutaneous emphysema over the right chest. Indicated further evaluation with CT scan may be beneficial. at 1733 Reported and signed by: Chucky Lozada MD Electronically Signed: Chucky Lozada MD at 17:32 EDT Tel , Service support , Chest CT 02/09/21 20:11 IMPRESSION: As seen and reported on previous chest x-ray of earlier today, there are bilateral trace pneumothoraces. There is marked pneumomediastinum extending up into the neck. There is severe diffuse bilateral pulmonary opacity worse than prior exam. Electronically Signed: Shine Zelaya MD at 22:28 EDT , Service support , Physical Exam Const Constitutional Narrative: Good vent synchrony noted. RASS -3 General Appearance: well developed, intubated and patient mechanically ventilated; Negative for in distress HEENT normocephalic, head/scalp atraumatic and moist oral mucous membranes Eyes PERRL, EOMs intact bilaterally, conjunctivae normal and no scleral icterus Neck full ROM Lymph Lymphatic: no lymphadenopathy noted Chest Chest: crepitus clavicle and sternum Resp normal respiratory effort and no use of accessory muscles Resp Narrative: Little secretions noted during my suctioning Auscultation: diminished lung sounds; Negative for rales, rhonchi or wheezes Cardio regular rate, regular rhythm, S1 normal heart sound, S2 normal heart sound, no m urmurs, no rub and no gallops GI normal to inspection, nondistended, normoactive bowel sounds Extremity General Extremity: edema bilateral (1+); Negative for clubbing Skin no rashes or lesions noted Neuro no focal motor deficits Psych Psych Narrative: RASS -2 Charges/Coding Procedures Hospitalists Procedures: [id number] Critial Care 1st Hr
--- NOTE | 2021-02-10 07:52 | RAD_ITS ---
EXAM: XR CHEST, 1 VIEW : 1960 CLINICAL INDICATION: Pneumomediastinum TECHNIQUE: Frontal view of the chest. This report was created using [employer] report generation technology. COMPARISON: 02/09/2021 FINDINGS: LUNGS AND PLEURAL SPACES: Right apical pneumothorax Diaz on present. The thorax is a maximum pleural separation of 1.4 cm at the lung apex. There is improved aeration in the lung bases. No effusion. HEART: Unremarkable. Cardiac silhouette not enlarged. MEDIASTINUM: Central airways and mediastinal contour are unremarkable. BONES/JOINTS: Unremarkable. SOFT TISSUES: Unremarkable. TUBES, LINES AND DEVICES: Endotracheal tube, nasogastric tube and right jugular catheter are in stable position. RAD/Chest 1 View (Portable) IMPRESSION: Small right apical pneumothorax. There is also a pneumomediastinum present. There is improved aeration with mild decreased airspace disease in the lung bases. Support structures are in stable position. at [id number] Reported and signed by: Chucky Lozada MD Electronically Signed: Chucky Lozada MD at 8:55 EDT Tel , Service support ,
[2021-02-10] MEDS: Insulin Lispro 100 UNIT/ML INSULN.PEN 25 UNIT SC ×3 (09:15→17:45)
[2021-02-10] MEDS: Insulin Lispro 100 UNIT/ML INSULN.PEN SC ×4 (09:15→22:53)
[2021-02-10 09:16] LABS: Bedside Glucose 458 mg/dL (70-110)
[2021-02-10] MEDS: Famotidine 200 MG/20 ML MDV 20 MG in 0.9% Normal Saline (Pres. free 8 ML 300 MG IV ×2 (10:25→20:54)
[2021-02-10] MEDS: levoFLOXacin IV 750 MG/150 ML BAG 100 MG IV (10:25)
[2021-02-10] MEDS: Vital AF 1.2 Cal Liquid 1,000 ML 60 ML GT (10:26)
[2021-02-10] MEDS: Chlorhexidine 15 ML PO ×2 (10:26→20:44)
[2021-02-10] MEDS: Nystatin Powder 15gm Bottle 1 APPLIC TOPICAL ×2 (10:26→20:43)
[2021-02-10] MEDS: Anastrozole 1 MG TABLET PO (10:27)
[2021-02-10] MEDS: Gabapentin 400 MG Capsule GT ×3 (10:28→20:42)
[2021-02-10] MEDS: Enoxaparin 30 MG/0.3 ML Syringe SC ×2 (10:29→20:42)
[2021-02-10] MEDS: CHLORHEXIDINE GLUC 2% CLOTH 1 EACH TOWELETTE TOPICAL (10:29)
[2021-02-10] MEDS: FLUoxetine 20 MG Capsule 40 MG GT (10:30)
[2021-02-10] MEDS: Cyanocobalamin 500 MCG Tablet GT (10:30)
[2021-02-10] MEDS: Acetaminophen 650 MG/20 ML UDC GT ×2 (10:48→16:18)
[2021-02-10] MEDS: 0.9% Saline Lock 10 ML Syringe IV (11:31)
[2021-02-10 11:50] LABS: Allen Test Positive; Base Excess 3 mmol/L (-2 to +2); Bicarbonate 26.4 mmol/L (22-26); Blood Gas Specimen Type ART; FI02 85; Mode BiLevel; O2 Delivery Device Adult Vent; PO2 78 mmHG (75-100); RR 12; SITE L Radial; SO2 96 % (95-99); Total Carbon Dioxide 28 mmol/L; pCO2 37.6 mmHg (35-45); pH 7.46 (7.35-7.45)
[2021-02-10 11:56] LABS: Bedside Glucose 462 mg/dL (70-110)
[2021-02-10 12:08] LABS: Anion Gap 8 (5-15); BUN 71 mg/dL (7-18); BUN/Creat Ratio 64.5 RATIO (10-20); Calcium,Total 7.7 mg/dL (8.5-10.1); Chloride 98 mmol/L (98-107); EST Glomerular Filtration Rate 54 mL/min (>60); Est Glom Filt Rate - Afr Amer 65 mL/min (>60); Estimated Creatinine Clearance 41.55 ml/min; Glucose 506 mg/dL (74-106); Magnesium 2.6 mg/dL (1.6-2.6); Phosphorus 2.9 mg/dL (2.5-4.9); Potassium 4.2 mmol/L (3.5-5.1); Sodium Level 136 mmol/L (136-145)
--- NOTE | 2021-02-10 12:49 | PN.HOSP_ITS ---
Subjective Subjective Patient was seen and examined. She had an increased oxygen requirement. Chest x-ray and CT of the chest shows right subcutaneous emphysema, pneumothorax, pneumomediastinum Objective Data Objective Data Vital Signs: Vital Signs Temp Pulse Resp BP Pulse Ox 104.3 F H 145 H 23 H 88/76 L 94 02/10/21 11:00 02/10/21 12:15 02/10/21 11:00 02/10/21 12:15 02/10/21 11:00 Oxygen Flow Rate (L/min) 13 Oxygen Delivery Method Mechanical Ventilator Weight: 83.3 kg Body Mass Index (BMI) 35.2 Intake & Output: Intake and Output for Last 24 Hours 02/08/21 02/09/21 02/10/21 23:59 23:59 23:59 Intake Total 2153.70 / 2261.20 2190.29 / 3802.79 2997.92 / 2997.92 Output Total 1425 / 1425 1680 / 1930 1050 / 1050 Balance 728.70 / 836.20 510.29 / 1872.79 1947.92 / 1947.92 Lab / Micro Data Result Diagrams: 02/10/21 04:45 02/10/21 11:40 Labs: Laboratory Results - last 24 hr 02/09/21 12:51: POC Glucose 365 H 02/09/21 13:05: Total Creatine Kinase 53, Triglycerides 161 02/09/21 17:41: POC Glucose 401 H 02/09/21 23:04: POC Glucose 303 H 02/10/21 04:45: WBC 28.3 H, RBC 4.59, Hgb 12.9, Hct 40.4, MCV 88.0, MCH 28.1, MCHC 31.9 L, RDW Std Deviation 44.4 H, RDW Coeff of Jay 14.3, Plt Count 264, MPV 10.8, Immature Gran % (Auto) 4.200 H, Neut % (Auto) 81.9 H, Lymph % (Auto) 11.0 L, [place] % (Auto) 2.3, Eos % (Auto) 0.3, Baso % (Auto) 0.3, Absolute Neuts (auto) 23.2 H, Absolute Lymphs (auto) 3.11, Nucleated RBC % 0.3, Differential Comment SCANNED, Polychromasia RARE, Anisocytosis 1+, Macrocytosis 1+ 02/10/21 04:45: Sodium 135 L, Potassium 4.2, Chloride 97 L, Carbon Dioxide 32.0, Anion Gap 6, BUN 60 H, Creatinine 0.88, Estim Creat Clear Calc 51.94, Est GFR (MDRD) Af Amer 84, Est GFR (MDRD) Non-Af 70, BUN/Creatinine Ratio 68.1 H, Glucose 470 H*, Calcium 7.9 L 02/10/21 09:08: POC Glucose 458 H* 02/10/21 11:40: Sodium 136, Potassium 4.2, Chloride 98, Carbon Dioxide 30.0, Anion Gap 8, BUN 71 H, Creatinine 1.10 H, Estim Creat Clear Calc 41.55, Est GFR (MDRD) Af Amer 65, Est GFR (MDRD) Non-Af 54 L, BUN/Creatinine Ratio 64.5 H, Glucose 506 H*, Calcium 7.7 L, Phosphorus 2.9, Magnesium 2.6 02/10/21 11:48: POC Glucose 462 H* Micro: Microbiology 02/09/21 06:50 Stool C. difficile DNA Amplification - Final 02/06/21 13:30 Blood Culture (Wb) - Neck Blood Culture - Preliminary No growth in 48 hours. 02/02/21 13:20 Sputum, Induced/Lukens Gram Stain - Final 02/02/21 13:20 Sputum, Induced/Lukens Respiratory Culture - Final Staphylococcus aureus Streptococcus pneumoniae 02/02/21 14:10 Urine Catheter - Nichole Urine Culture - Final Escherichia coli 01/28/21 17:00 Blood Culture (Wb) - Anticubital Left Blood Culture - Final No growth in 5 days. 01/28/21 16:55 Blood Culture (Wb) - Left Hand Blood Culture - Final No growth in 5 days. 01/28/21 17:00 Mucosa - Nose SARS-CoV-2 Antigen (Rapid) - Final SARS-CoV-2 (COVID 19) ABG Data ABG results: ABG 02/09/21 02/10/21 02/10/21 20:03 05:47 11:46 Specimen Type ART ART ART Sample Site R Radial L Radial L Radial pH 7.46 H 7.52 H 7.46 H Bicarbonate Actual 29.0 H 29.6 H 26.4 H Total CO2 30 31 28 Base Excess 5 H 7 H 3 H O2 Saturation 95 91 L 96 O2 % 100 90 85 ABG pCO2 41.0 36.4 37.6 ABG pO2 73 L 55 L 78 Roman Test Positive Positive Positive Respiration Rate 12 12 12 O2 Delivery Device Adult Vent Adult Vent Adult Vent Vent Mode BiLevel BiLevel BiLevel Clinical Comments ph26 pl0 Th4.5 tl0.5 Radiography Diagnostic Testing: Radiology Impression Chest X-Ray 02/09/21 17:00 IMPRESSION: Diffuse bilateral airspace disease. There is a questionable trace apical right-sided pneumothorax or pneumomediastinum. There is subcutaneous emphysema over the right chest. Indicated further evaluation with CT scan may be beneficial. at 1733 Reported and signed by: Chucky Lozada MD Electronically Signed: Chucky Lozada MD at 17:32 EDT Tel , Service support , Chest CT 02/09/21 20:11 IMPRESSION: As seen and reported on previous chest x-ray of earlier today, there are bilateral trace pneumothoraces. There is marked pneumomediastinum extending up into the neck. There is severe diffuse bilateral pulmonary opacity worse than prior exam. Electronically Signed: Shine Zelaya MD at 22:28 EDT , Service support , Chest X-Ray 02/10/21 07:52 IMPRESSION: Small right apical pneumothorax. There is also a pneumomediastinum present. There is improved aeration with mild decreased airspace disease in the lung bases. Support structures are in stable position. at 0856 Reported and signed by: Chucky Lozada MD Electronically Signed: Chucky Lozada MD at 8:55 EDT Tel , Service support , Physical Exam Narrative General: Sedated, intubated HEENT: Atraumatic, PERRLA, EOMI, Normocephalic Oral: ET and OG tube. Neck: Supple Lungs: On mechanical ventilator. Cardiovascular: , Normal S1, Normal S2, No murmurs Abdomen: Bowel Sounds t, Soft, Non Tender, Non-Distended Extremities: Bilateral pedal edema , trace Skin: No rashes, No breakdown Musculoskeletal: No Tenderness to Palpation of Joints or Extremities Neurological:sedated Psych/Mental Status: Sedated Assessment & Plan Assessment/Plan (1) COVID-19: (2) Acute and chronic respiratory failure with hypoxia: PLAN: 1.Acute hypoxic respiratory failure secondary to COVID-19 pneumonia/MSSA and strep pneumonia Worsening; now with subcutaneous emphysema, pneumothorax and mediastinum Remains intubated Patient was intubated on 02/03/21 Continue on breathing treatments, propofol, fentanyl, IV Levaquin 2.Diabetes mellitus type 2 uncontrolled with hyperglycemia Continue on Lantus and humalog 3.Septic shock secondary to #1 -acute COVID-19 pneumonia/MSSA/strep pneumonia/E. coli UTI, Blood cultures x5 have been negative Patient remains hypotensive again, Levophed restarted 4. Rest of her chronic medical conditions including history of breast CA, status post mastectomy/hyperlipidemia/depression/obesity?remain stable Home med list reviewed Patient's prognosis is poor -CODE STATUS made DNR CCA, family will meet today Charges/Coding Visit Charges Inpatient E&M: 62738 [facility] Hosp L3
[2021-02-10] MEDS: TITRATION PARAMETER CHANGE 1 EACH IV ×2 (13:20→16:53)
--- NOTE | 2021-02-10 16:03 | CASEMGMT ---
SW called to offer support. Pt thanked SW for calling, SW remains available for support to . MARÍA Harmon
[2021-02-10] MEDS: Menthol/Lanolin/Calamine/Znox 113 GM Tube 1 APPLIC TOPICAL (20:42)
[2021-02-10] MEDS: Atorvastatin Calcium 20 MG Tablet GT (20:42)
[2021-02-10 21:00] LABS: Bedside Glucose 431 mg/dL (70-110)
[2021-02-10 23:01] LABS: Bedside Glucose 397 mg/dL (70-110)
[2021-02-11] VITALS (25 sets, daily range): BP systolic 70–102; BP diastolic 41–76; PULSE 117–154; RESP 16–31; TEMP 35.5–39.7; O2SAT 89–92
[2021-02-11] MEDS: guaiFENesin 10 ML UDC (200MG/10ML) GT (00:34)
[2021-02-11 03:56] LABS: Absolute Lymphocyte Count 8.49 X10^3/uL (0.83-4.51); Absolute Neutrophil Count 32.4 X10^3/uL (2.0-7.7); Basophil# 0.08 X10^3/uL; Basophil% 0.2 % (0-1); Eosinophil# 0.11 X10^3/uL; Eosinophils% 0.2 % (0-5); Hematocrit 42.6 % (37-47); Hemoglobin 13.6 g/dL (12.0-15.0); Lymphocyte # 8.49 X10^3/ul (0.83-4.51); Mean Corp Hgb Conc 31.9 g/dL (32-36); Mean Corpuscular Hgb 28.2 pg (27.0-32.0); Mean Corpuscular Volume 88.4 fL (81-99); Mean Platelet Vol. 10.9 fl (6.2-12.0); Monocyte# 1.54 X10^3/uL; Monocyte% 3.4 % (0-10); NRBC Flagged by Analyzer 1.1 % (0-5); Neutrophil # 32.36 X10^3/uL (2.7-7.7); Neutrophil % 72.4 % (47-70); POSITIVE COUNT YES; POSITIVE DIFFERENTIAL YES; POSITIVE MORPHOLOGY YES; Platelet Count 410 K/mm3 (150-450); RBC Distribution Width CV 14.8 % (11.6-14.6); RBC Distribution Width SD 45.5 fl (35.1-43.9); Red Blood Count 4.82 M/mm3 (4.2-5.4)
[2021-02-11 04:00] LABS: Differential Indicated SCAN CRITERIA MET; White Blood Count 44.7 K/mm3 (4.4-11.0)
[2021-02-11 04:32] LABS: Anion Gap 7 (5-15); BUN 104 mg/dL (7-18); BUN/Creat Ratio 97.2 RATIO (10-20); Calcium,Total 7.4 mg/dL (8.5-10.1); Chloride 98 mmol/L (98-107); Creatinine, Serum 1.07 mg/dL (0.55-1.02); EST Glomerular Filtration Rate 56 mL/min (>60); Est Glom Filt Rate - Afr Amer 67 mL/min (>60); Estimated Creatinine Clearance 42.72 ml/min; Glucose 591 mg/dL (74-106); Potassium 4.6 mmol/L (3.5-5.1); Sodium Level 133 mmol/L (136-145)
[2021-02-11 04:51] LABS: Differential Comment SCANNED
[2021-02-11 04:52] LABS: Polychromasia RARE
[2021-02-11 05:11] LABS: Base Excess 0 mmol/L (-2 to +2); Bicarbonate 25.4 mmol/L (22-26); Blood Gas Specimen Type ART; FI02 90; Mode BiLevel; O2 Delivery Device Adult Vent; PO2 62 mmHG (75-100); RR 12; SITE L Radial; SO2 90 % (95-99); Total Carbon Dioxide 27 mmol/L; pCO2 46.4 mmHg (35-45); pH 7.35 (7.35-7.45)
[2021-02-11] MEDS: Insulin Lispro 100 UNIT/ML INSULN.PEN 25 UNIT SC (05:19)
[2021-02-11] MEDS: Vital AF 1.2 Cal Liquid 1,000 ML 60 ML GT (05:23)
[2021-02-11] MEDS: Insulin Lispro 100 UNIT/ML INSULN.PEN 35 UNIT SC ×2 (05:29→11:50)
--- NOTE | 2021-02-11 07:39 | PN.CC_ITS ---
Assessment & Plan Assessment/Plan (1) Acute and chronic respiratory failure with hypoxia: (2) COVID-19: PLAN: RECOMMENDATIONS: 1. Continue to wean FiO2 and PEEP to maintain oxygen saturations at or above 90%. 2. Wean P high as tolerated. 3. Increase Lantus secondary to hyperglycemia 4. Continue antimicrobials. 5. Add vasopressin 6. Continue tube feeds as tolerated. 7. Completed Decadron course. Monitor blood sugars closely 8. Continue appropriate ICU prophylaxis. IMPRESSIONS: 1. Acute hypoxemic respiratory failure secondary to COVID-19 pneumonia The patient presented to the hospital with approximately 2 weeks of symptoms. She was outside of the window to receive remdesivir. Although the patient was maintained on noninvasive positive pressure ventilatory support initially, she continued to decompensate from a respiratory perspective, eventually requiring intubation on February 02. She will be continued on assist control mode of mechanical ventilation with FiO2 and PEEP weaned to maintain saturations at or above 90%. Goal to maintain plateau pressures less than 30. Completed Decadron therapy. Tube feeds will be continued. Twice daily Lovenox will be continued. Patient does have a small right apical pneumothorax, but this appears to be stable. Attempts to wean P high have been unsuccessful. F amily to arrive today. Cannot exclude transition to comfort measures. 2. E. coli cystitis Continue antimicrobials as completed 7-day treatment course. 3. Diabetes mellitus/history of breast CA/hypertension/obesity/hyperlipidemia Complicates care, management, recovery and prognosis. Continue Lantus and sliding scale insulin coverage. Mobilize patient as tolerated. 4. Shock Unclear etiology. Patient has been having high fevers, but also developed a pneumomediastinum with apical pneumothorax. This has been relatively stable, but patient has required pressors. We will add vasopressin given maximum doses of Levophed. Could consider stress dose steroids if symptoms persist. TIME: 37 minutes of critical care time, independent of procedures, was spent addressing the patient's acute hypoxemic respiratory failure secondary to COVID- 19 pneumonia, E. coli cystitis, review of all data and collaboration with the care team. (6 AM to 7 AM) Subjective Subjective Patient did okay overnight. Patient has required increase in pressors and there has been some mottling noted of the left lower extremity. Crepitus has not progressed per nursing. Patient continues to be minimally responsive despite lack of sedation. Patient's fever normalized through the evening and patient was hypothermic this morning requiring addition of blankets. Objective Data Objective Data Vital Signs: Vital Signs Temp Pulse Resp BP Pulse Ox 36.8 C 138 H 19 H 84/53 L 89 02/11/21 07:00 02/11/21 07:00 02/11/21 07:00 02/11/21 07:00 02/11/21 07:00 Oxygen Flow Rate (L/min) 13 Oxygen Delivery Method Mechanical Ventilator Weight: 87.6 kg Body Mass Index (BMI) 35.2 Intake & Output: Intake and Output for Last 24 Hours 02/09/21 02/10/21 02/11/21 23:59 23:59 23:59 Intake Total 2190.29 / 3802.79 4151.53 / 4159.03 1609.88 / 1609.88 Output Total 1680 / 1930 1200 / 1200 380 / 380 Balance 510.29 / 1872.79 2951.53 / 2959.03 1229.88 / 1229.88 Lab / Micro Data Result Diagrams: 02/11/21 03:50 02/11/21 03:50 Labs: Laboratory Results - last 24 hr 02/10/21 09:08: POC Glucose 458 H* 02/10/21 11:40: Sodium 136, Potassium 4.2, Chloride 98, Carbon Dioxide 30.0, Anion Gap 8, BUN 71 H, Creatinine 1.10 H, Estim Creat Clear Calc 41.55, Est GFR (MDRD) Af Amer 65, Est GFR (MDRD) Non-Af 54 L, BUN/Creatinine Ratio 64.5 H, Glucose 506 H*, Calcium 7.7 L, Phosphorus 2.9, Magnesium 2.6 02/10/21 11:48: POC Glucose 462 H* 02/10/21 17:43: POC Glucose 431 H 02/10/21 22:52: POC Glucose 397 H 02/11/21 03:50: WBC 44.7 H*, RBC 4.82, Hgb 13.6, Hct 42.6, MCV 88.4, MCH 28.2, MCHC 31.9 L, RDW Std Deviation 45.5 H, RDW Coeff of Jay 14.8 H, Plt Count 410, MPV 10.9, Immature Gran % (Auto) 4.800 H, Neut % (Auto) 72.4 H, Lymph % (Auto) 19.0, [place] % (Auto) 3.4, Eos % (Auto) 0.2, Baso % (Auto) 0.2, Absolute Neuts (auto) 32.4 H, Absolute Lymphs (auto) 8.49 H, Nucleated RBC % 1.1, Differential Comment SCANNED, Diff Path Review May foll, Polychromasia RARE 02/11/21 03:50: Sodium 133 L, Potassium 4.6, Chloride 98, Carbon Dioxide 28.0, Anion Gap 7, BUN 104 H*, Creatinine 1.07 H, Estim Creat Clear Calc 42.72, Est GFR (MDRD) Af Amer 67, Est GFR (MDRD) Non-Af 56 L, BUN/Creatinine Ratio 97.2 H, Glucose 591 H*, Calcium 7.4 L Micro: Microbiology 02/09/21 06:50 Stool C. difficile DNA Amplification - Final 02/06/21 13:30 Blood Culture (Wb) - Neck Blood Culture - Preliminary No growth in 48 hours. 02/02/21 13:20 Sputum, Induced/Lukens Gram Stain - Final 02/02/21 13:20 Sputum, Induced/Lukens Respiratory Culture - Final Staphylococcus aureus Streptococcus pneumoniae 02/02/21 14:10 Urine Catheter - Nichole Urine Culture - Final Escherichia coli 01/28/21 17:00 Blood Culture (Wb) - Anticubital Left Blood Culture - Final No growth in 5 days. 01/28/21 16:55 Blood Culture (Wb) - Left Hand Blood Culture - Final No growth in 5 days. 01/28/21 17:00 Mucosa - Nose SARS-CoV-2 Antigen (Rapid) - Final SARS-CoV-2 (COVID 19) ABG Data ABG results: ABG 02/10/21 02/11/21 11:46 05:03 Specimen Type ART ART Sample Site L Radial L Radial pH 7.46 H 7.35 Bicarbonate Actual 26.4 H 25.4 Total CO2 28 27 Base Excess 3 H 0 O2 Saturation 96 90 L O2 % 85 90 ABG pCO2 37.6 46.4 H ABG pO2 78 62 L Roman Test Positive N/A Respiration Rate 12 12 O2 Delivery Device Adult Vent Adult Vent Vent Mode BiLevel BiLevel Clinical Comments ph26 pl0 Th4.5 tl0.5 phigh24 thigh4.5 Radiography Diagnostic Testing: Radiology Impression Chest X-Ray 02/10/21 07:52 IMPRESSION: Small right apical pneumothorax. There is also a pneumomediastinum present. There is improved aeration with mild decreased airspace disease in the lung bases. Support structures are in stable position. at 0856 Reported and signed by: Chucky Lozada MD Electronically Signed: Chucky Lozada MD at 8:55 EDT Tel , Service support , Physical Exam Const Constitutional Narrative: Good vent synchrony noted. RASS -3 General Appearance: well developed, intubated and patient mechanically ventila suzette; Negative for in distress HEENT normocephalic, head/scalp atraumatic and moist oral mucous membranes Eyes PERRL, EOMs intact bilaterally, conjunctivae normal and no scleral icterus Neck full ROM Lymph Lymphatic: no lymphadenopathy noted Chest Chest: crepitus clavicle and sternum Resp normal respiratory effort and no use of accessory muscles Resp Narrative: Little secretions noted during my suctioning Auscultation: diminished lung sounds; Negative for rales, rhonchi or wheezes Cardio regular rate, regular rhythm, S1 normal heart sound, S2 normal heart sound, no murmurs, no rub and no gallops GI normal to inspection, nondistended, normoactive bowel sounds Extremity General Extremity: edema bilateral (1+); Negative for clubbing Skin Skin Narrative: Mottling noted of the left lower extremity. Neuro no focal motor deficits Psych Psych Narrative: RASS -3 Charges/Coding Procedures Hospitalists Procedures: [id number] Critial Care 1st Hr
[2021-02-11] MEDS: Acetaminophen 650 MG/20 ML UDC GT (08:05)
[2021-02-11] MEDS: FLUoxetine 20 MG Capsule 40 MG GT (10:04)
[2021-02-11] MEDS: Anastrozole 1 MG TABLET PO (10:04)
[2021-02-11] MEDS: Enoxaparin 30 MG/0.3 ML Syringe SC (10:05)
[2021-02-11] MEDS: CHLORHEXIDINE GLUC 2% CLOTH 1 EACH TOWELETTE TOPICAL (10:05)
[2021-02-11] MEDS: Gabapentin 400 MG Capsule GT (10:05)
[2021-02-11] MEDS: Chlorhexidine 15 ML PO (10:05)
[2021-02-11] MEDS: Cyanocobalamin 500 MCG Tablet GT (10:05)
[2021-02-11] MEDS: Nystatin Powder 15gm Bottle 1 APPLIC TOPICAL (10:06)
[2021-02-11] MEDS: Famotidine 200 MG/20 ML MDV 20 MG in 0.9% Normal Saline (Pres. free 8 ML 300 MG IV (10:12)
[2021-02-11] MEDS: levoFLOXacin IV 750 MG/150 ML BAG 100 MG IV (10:14)
--- NOTE | 2021-02-11 11:01 | PN.HOSP_ITS ---
Subjective Subjective Patient was seen and examined. Remains hypotensive. Currently on Levophed and vasopressin. Family meeting is pending. Objective Data Objective Data Vital Signs: Vital Signs Temp Pulse Resp BP Pulse Ox 103.5 F H 143 H 21 H 82/63 L 92 02/11/21 10:00 02/11/21 10:00 02/11/21 10:00 02/11/21 10:00 02/11/21 10:00 Oxygen Flow Rate (L/min) 13 Oxygen Delivery Method Mechanical Ventilator Weight: 87.6 kg Body Mass Index (BMI) 35.2 Intake & Output: Intake and Output for Last 24 Hours 02/09/21 02/10/21 02/11/21 23:59 23:59 23:59 Intake Total 2190.29 / 3802.79 4151.53 / 4159.03 2058.93 / 2058.93 Output Total 1680 / 1930 1200 / 1200 380 / 380 Balance 510.29 / 1872.79 2951.53 / 2959.03 1678.93 / 1678.93 Lab / Micro Data Result Diagrams: 02/11/21 03:50 02/11/21 03:50 Labs: Laboratory Results - last 24 hr 02/10/21 11:40: Sodium 136, Potassium 4.2, Chloride 98, Carbon Dioxide 30.0, Anion Gap 8, BUN 71 H, Creatinine 1.10 H, Estim Creat Clear Calc 41.55, Est GFR (MDRD) Af Amer 65, Est GFR (MDRD) Non-Af 54 L, BUN/Creatinine Ratio 64.5 H, Glucose 506 H*, Calcium 7.7 L, Phosphorus 2.9, Magnesium 2.6 02/10/21 11:48: POC Glucose 462 H* 02/10/21 17:43: POC Glucose 431 H 02/10/21 22:52: POC Glucose 397 H 02/11/21 03:50: WBC 44.7 H*, RBC 4.82, Hgb 13.6, Hct 42.6, MCV 88.4, MCH 28.2, MCHC 31.9 L, RDW Std Deviation 45.5 H, RDW Coeff of Jay 14.8 H, Plt Count 410, MPV 10.9, Immature Gran % (Auto) 4.800 H, Neut % (Auto) 72.4 H, Lymph % (Auto) 19.0, [place] % (Auto) 3.4, Eos % (Auto) 0.2, Baso % (Auto) 0.2, Absolute Neuts (auto) 32.4 H, Absolute Lymphs (auto) 8.49 H, Nucleated RBC % 1.1, Differential Comment SCANNED, Diff Path Review May foll, Polychromasia RARE 02/11/21 03:50: Sodium 133 L, Potassium 4.6, Chloride 98, Carbon Dioxide 28.0, Anion Gap 7, BUN 104 H*, Creatinine 1.07 H, Estim Creat Clear Calc 42.72, Est GFR (MDRD) Af Amer 67, Est GFR (MDRD) Non-Af 56 L, BUN/Creatinine Ratio 97.2 H, Glucose 591 H*, Calcium 7.4 L Micro: Microbiology 02/09/21 11:15 Blood Culture (Wb) - Arterial Blood Culture - Preliminary No growth in 48 hours. 02/09/21 11:05 Blood Culture (Wb) - Left Wrist Blood Culture - Preliminary No growth in 48 hours. 02/09/21 06:50 Stool C. difficile DNA Amplification - Final 02/06/21 13:30 Blood Culture (Wb) - Neck Blood Culture - Preliminary No growth in 48 hours. 02/02/21 13:20 Sputum, Induced/Lukens Gram Stain - Final 02/02/21 13:20 Sputum, Induced/Lukens Respiratory Culture - Final Staphylococcus aureus Streptococcus pneumoniae 02/02/21 14:10 Urine Catheter - Nichole Urine Culture - Final Escherichia coli 01/28/21 17:00 Blood Culture (Wb) - Anticubital Left Blood Culture - Final No growth in 5 days. 01/28/21 16:55 Blood Culture (Wb) - Left Hand Blood Culture - Final No growth in 5 days. 01/28/21 17:00 Mucosa - Nose SARS-CoV-2 Antigen (Rapid) - Final SARS-CoV-2 (COVID 19) ABG Data ABG results: ABG 02/10/21 02/11/21 11:46 05:03 Specimen Type ART ART Sample Site L Radial L Radial pH 7.46 H 7.35 Bicarbonate Actual 26.4 H 25.4 Total CO2 28 27 Base Excess 3 H 0 O2 Saturation 96 90 L O2 % 85 90 ABG pCO2 37.6 46.4 H ABG pO2 78 62 L Roman Test Positive N/A Respiration Rate 12 12 O2 Delivery Device Adult Vent Adult Vent Vent Mode BiLevel BiLevel Clinical Comments ph26 pl0 Th4.5 tl0.5 phigh24 thigh4.5 Physical Exam Narrative General: Sedated, intubated HEENT: Atraumatic, PERRLA, EOMI, Normocephalic Oral: ET and OG tube. Neck: Supple Lungs: On mechanical ventilator. Cardiovascular: , Normal S1, Normal S2, No murmurs Abdomen: Bowel Sounds t, Soft, Non Tender, Non-Distended Extremities: Bilateral pedal edema , trace Skin: No rashes, No breakdown Musculoskeletal: No Tenderness to Palpation of Joints or Extremities Neurological:sedated Psych/Mental Status: Sedated Assessment & Plan Assessment/Plan (1) COVID-19: (2) Acute and chronic respiratory failure with hypoxia: PLAN: 1.Acute hypoxic respiratory failure secondary to COVID-19 pneumonia/MSSA and strep pneumonia Worsening; now with subcutaneous emphysema, pneumothorax and mediastinum Remains intubated. Patient was intubated on 02/03/21 Continue on breathing treatments, propofol, fentanyl, IV Levaquin 2.Diabetes mellitus type 2 uncontrolled with hyperglycemia Continue on Lantus and humalog 3.Septic shock secondary to #1 -acute COVID-19 pneumonia/MSSA/strep pneumonia/E. coli UTI, Blood cultures x5 have been negative Patient remains hypotensive again, Levophed restarted 4. Rest of her chronic medical conditions including history of breast CA, st atus post mastectomy/hyperlipidemia/depression/obesity?remain stable Home med list reviewed Patient's prognosis is poor -CODE STATUS made DNR CCA, family meeting planned for today Charges/Coding Visit Charges Inpatient E&M: 46423 Subs Hosp L3
[2021-02-11] MEDS: Insulin Lispro 100 UNIT/ML INSULN.PEN SC (11:50)
[2021-02-11 12:01] LABS: Bedside Glucose 420 mg/dL (70-110)
[2021-02-11] MEDS: Epinephrine (SHOCK) 16 mg in 0.9% NS 250 mL 16.4 MG CONT INF (14:30)
--- NOTE | 2021-02-11 14:45 | NURSING ---
Patients at bedside. He had already spoke with Dr Reese and received updates as well as poor prognosis. said he needed some time to think about if he wants to withdraw care or continue aggressive treatment.
[2021-02-11] MEDS: LORazepam 2 MG/ML Syringe IV (15:15)
--- NOTE | 2021-02-11 15:35 | NURSING ---
Patients decided to withdraw care and change patient's code status to DNRCC. Dr Reese notified, new comfort care medication orders, extubate, and code status change orders received. RT Michelle notified and arrived at bedside for terminal extubation. Patient was premedicated for comfort and extubated by Michelle with this RN assisting at 1535.
--- NOTE | 2021-02-11 15:41 | NURSING ---
Checked on patient after asystole alarm on central monitor. Patient was found to be without pulse, no heart sounds auscultated. Verified with Sonia MCINTOSH, Dr Reese notified
--- NOTE | 2021-02-11 16:21 | PCM.DEATH ---
Preliminary Cause of Preliminary Cause of Preliminary Cause of : Acute hypoxic failure secondary to severe COVID-19 pneumonia/MSSA and strep pneumonia Acute spontaneous pneumothorax/pneumomediastinum Septic shock Date of Admission: 01/28/21 Date of : 02/11/21 Principle Diagnosis Problem List: Active and Suspected Problems (Updated 01/29/21 @ 13:[address] Danilo Ramirez, DO) Acute hypoxic failure secondary to severe COVID-19 pneumonia/MSSA and strep pneumonia Acute spontaneous pneumothorax/pneumomediastinum Septic shock Hospital Course 60-year-old female past medical history of breast CA status post bilateral mastectomy, chemoradiation, type II DM, hypertension who presents with cough, fatigue, wheezes ongoing for about 2 weeks. Her tested for COVID-19. Patient was admitted on 4 L of oxygen. Chest x-ray and CTA of the chest had shown bilateral patchy groundglass opacity, no acute PE. She was started on breathing treatments, Decadron pressures out of the window for remdesivir. She also received intermittent diuretics. In the hospital, her oxygen requirements continue to worsen, requiring use of BiPAP. Patient initially did not want to be intubated. However with decompensation of her respiratory status, to change her mind and elected to be full code. She was intubated on 02/02/21. She continued to progress poorly. She required a right IJ tube in place for septic shock. Work-up was suggestive of MSSA pneumonia and strep pneumo. She was transitioned to appropriate antibiotics. Patient continued to be febrile, have increased oxygen requirements on the ventilator. CT of the chest done on suggestive of pneumonia thorax indirect hernia subcutaneous emphysema and pneumomediastinum. was updated throughout the hospital stay. CODE STATUS was changed to DNR CCA on 02/10/21. On 02/11/21 with the patient not getting better, progressively worse, on 3 pressors, still hypotensive: decided to withdraw care. Time of is 1540 Assessment & Plan Assessment/Plan (1) Acute and chronic respiratory failure with hypoxia: (2) COVID-19: (3) Septic shock: (4) MSSA (methicillin susceptible Staphylococcus aureus) pneumonia: QUALIFIERS: Laterality: bilateral Lung location: unspecified part of lung Qualified Code(s): J15.211 - Pneumonia due to Methicillin susceptible Staphylococcus aureus (5) Streptococcal pneumonia: (6) Pneumothorax: QUALIFIERS: Pneumothorax type: spontaneous, secondary Qualified Code(s): J93.12 - Secondary spontaneous pneumothorax (7) Pneumomediastinum: (8) Uncontrolled blood glucose: Visit Charges Inpatient E&M: 53188 Disch Hosp
[2021-02-11] MEDS: morphine 10 MG/ML Syringe IV (17:08)
[2021-02-14 16:03] LABS: Pathologist Review Reviewed
== END 2021-02-11 15:41 | DRG 207 ==
LOC: ED 18:55 → MS3 01-29 06:52 → ICU 01-31 14:23
PROVIDERS: Internal Medicine; Internal Medicine Critical Care Medicine; Admitting Provider Hospitalist; Emergency Provider Emergency Medicine; PCP Family Medicine; Visit Provider Internal Medicine
DX: U07.1 COVID-19 (principal); J12.82 Pneumonia due to coronavirus disease 2019; J15.211 Pneumonia due to Methicillin susceptible Staphylococcus aureus; J15.4 Pneumonia due to other streptococci; J96.21 Acute and chronic respiratory failure with hypoxia; A41.89 Other specified sepsis; R65.21 Severe sepsis with septic shock; D61.818 Other pancytopenia; N30.00 Acute cystitis without hematuria; J93.12 Secondary spontaneous pneumothorax; E11.65 Type 2 diabetes mellitus with hyperglycemia; Z85.3 Personal history of malignant neoplasm of breast; Z90.13 Acquired absence of bilateral breasts and nipples; E11.649 Type 2 diabetes mellitus with hypoglycemia without coma; B96.20 Unspecified Escherichia coli [E. coli] as the cause of diseases classified elsewhere; I10 Essential (primary) hypertension; E78.00 Pure hypercholesterolemia, unspecified; E78.5 Hyperlipidemia, unspecified; K21.9 Gastro-esophageal reflux disease without esophagitis; E66.9 Obesity, unspecified; Z68.35 Body mass index [BMI] 35.0-35.9, adult; Z66 Do not resuscitate; Z87.19 Personal history of other diseases of the digestive system; Z79.4 Long term (current) use of insulin; Z79.899 Other long term (current) drug therapy
CPT/HCPCS: 31720; 36415; 36600; 71045; 71250; 71275; 80048; 80053; 80076; 82550; 82803; 82947; 82962; 83605; 83735; 83880; 84100; 84145; 84478; 84484; 85025; 85610; 87040; 87070; 87077; 87086; 87088; 87186; 87205; 87426; 87493; 93005; 94002; 94003; 94640; 94660; 94762; 97110; 97162; 97166; 97802; 97803; 99251; 99285; J7050; Q9967; A4216; C1751; G0463; J1940; J2405; J3010; J3490